=== PATIENT | male | born 1990 | race Two or more races ===

== ENCOUNTER 2019-05-28 15:50 | Emergency (ER) | payer MEDICAID ==
[~2019-05-28] VITALS: Ht 167.6 cm; Wt 74.8 kg
[2019-05-28 16:00] VITALS: BP 128/85
--- NOTE | 2019-05-28 16:00 | NUR ---
ED Nurse Note: Patient walked in to ER from home due to "feeling weird" since he took meth yesterday. Patient alert and oriented x4 and amulatory. Skin clean and intact. Calm and cooperative. No acute distress noted at this time.
--- NOTE | 2019-05-28 16:41 | Emergency Room Report ---
History of Present Illness General Chief Complaint: General Complaint Source: Patient Present Illness HPI 29-year-old male with significant past medical history of depression with psychotic features who formerly used to be on Lexapro and Risperdal and has not taken his medication in many months, here complaining of psychosis after using methamphetamine. Patient is here with his mom and reports that he has been using meth for several months now. According to mom patient started expressing delusional concerns saying that people are poisoning him and he is hearing voices. Patient himself denies any harm to himself and others and reports that the voices that he is hearing do not asked him to do harm to himself or anybody else. Patient sitting comfortably with stable vital signs however is under the impression that he is being poisoned and request blood work for clearance of being clear of poisoning. Denies all other drug use, tobacco use, alcohol intake. Denies chest pain, shortness of breath, palpitation, no other associated symptoms. Patient expresses voluntary interest to going to mental health facilities. Allergies: Coded Allergies: No Known Allergies (Unverified , 05/28/19) Patient History Past Medical History: see triage record Past Surgical History: unable to obtain Family History: none Immunizations: UTD Reviewed Nursing Documentation: PMH: Agreed; PSxH: Agreed Nursing Documentation-PMH Past Medical History: No History, Except For Review of Systems All Other Systems: negative except mentioned in HPI Physical Exam Vital Signs Date Time Temp Pulse Resp B/P (MAP) Pulse Ox O2 Delivery O2 Flow Rate FiO2 05/28/19 16:04 98.8 107 18 153/104 (120) 96 Room Air Sp02 EP Interpretation: reviewed, normal General Appearance: alert/responsive, no apparent distress, GCS 15, non-toxic Head: normocephalic, atraumatic Eyes: PERRL, lids + conjunctiva normal ENT: hearing intact, no angioedema Neck: supple/symm/no masses, no meningismus Respiratory: effort normal, no wheezing, chest symmetrical Cardiovascular: regular rate, rhythm, no edema Gastrointestinal: non-tender, no mass, non-distended, no rebound/guarding, normal bowel sounds Musculoskeletal: gait & station normal, strength & tone normal, normal ROM, non -tender Neurologic: oriented x3, sensory intact, normal speech Psychiatric: memory normal, no suicidal/homicidal ideation, other - Delusions and hallucinations Suicide Risk Assessment: Suicidal Ideation: No Had intent to initiate attempt: No Pt's plan for suicide attempt: No Has means to complete attempt: No Skin: normal inspection, no rash Lymphatic: normal inspection Medical Decision Making PA Attestation All my diagnosis and treatment plans were reviewed ad discussed with my supervising physician Dr. Scott Diagnostic Impression: Primary Impression: Drug-induced psychotic disorder Additional Impression: Methamphetamine abuse ER Course 29-year-old male with significant past medical history of depression with psychotic features who formerly used to be on Lexapro and Risperdal and has not taken his medication in many months, here complaining of psychosis after using methamphetamine. Patient is here with his mom and reports that he has been using meth for several months now. According to mom patient started expressing delusional concerns saying that people are poisoning him and he is hearing voices. Patient himself denies any harm to himself and others and reports that the voices that he is hearing do not asked him to do harm to himself or anybody else. Patient sitting comfortably with stable vital signs however is under the impression that he is being poisoned and request blood work for clearance of being clear of poisoning. Denies all other drug use, tobacco use, alcohol intake. Denies chest pain, shortness of breath, palpitation, no other associated symptoms. Patient expresses voluntary interest to going to mental health facilities. Ddx considered but are not limited to: generalized anxiety disorder, panic attack, depression with psycotic featurs, bipolar disorder, drug overdose Vital signs: are WNL, pt. is afebrile H&PE are most consistent with: Methamphetamine abuse, drug-induced psychosis ORDERS: none required at this time, the diagnosis is clinical ED INTERVENTIONS: None required at this time. DISCHARGE: At this time pt. is stable for d/c to home. Will provide printed patient care instructions, and any necessary prescriptions. Care plan and follow up instructions have been discussed with the patient prior to discharge. I gave patient a list of 3 days to go and check himself into also I explained to him that he needs to be cleared off methamphetamine in order to have a psychiatric evaluation and possibly go back on for her medications. Patient did not express any suicidal upon discharge Last Vital Signs Date Time Temp Pulse Resp B/P (MAP) Pulse Ox O2 Delivery O2 Flow Rate FiO2 10/19/19 16:04 98.8 107 18 153/104 (120) 96 Room Air Disposition: HOME, SELF-CARE Condition: Stable Patient Instructions: Psychosis, Stimulant Use Disorder-Methamphetamines Additional Instructions: Go to the mental health facility to help you detox from methamphetamine and be evaluated by psychiatrist. Jose Alfredo Malone May 28, 2019 16:41
[2019-05-28 16:52] VITALS: BP 148/98
--- NOTE | 2019-05-28 16:53 | NUR ---
ED Nurse Note: Pt cleared by health care Provider for discharge. DC instructions/prescription was given and explained to pt and verbalized understanding of teachings. All medical deviecs such as ID band removed. Pt is AAO x4, ambulatory and left with all personal belongings.
== END 2019-05-28 16:52 | disposition home or self-care (01) ==
LOC: EMR 16:40
DX: F15.151 Other stimulant abuse with stimulant-induced psychotic disorder with hallucinations (principal); F32.89 Other specified depressive episodes
CPT/HCPCS: 99281

== ENCOUNTER 2019-06-24 17:34 | Emergency (ER) | payer MEDICAID ==
[~2019-06-24] VITALS: Ht 167.6 cm; Wt 77.1 kg
--- NOTE | 2019-06-24 17:50 | Emergency Room Report ---
History of Present Illness General Chief Complaint: Abdominal Pain Source: Patient Present Illness HPI Disclaimer: Please note that this report is being documented using [employer] technology. This can lead to erroneous entry secondary to incorrect interpretation by the dictating instrument. HPI: 29-year-old male with history of schizophrenia and depression presents for evaluation of strange perioral sensations. The patient states for the past 2 days he has had a burning in the corners of his mouth and a "weird feeling" over the tip of his tongue that he has difficulty describing. He was brought in by paramedics who he called from a [employer] store parking lot. He is concerned that someone may have sprayed a chemical on him, poison him or is concerned about another exposure. He states he has had a dry mouth and difficulty swallowing over the past few days but does states that the difficulty swallowing is because he is fearful to do so. He denies any chest pain, palpitations, abdominal pain, nausea, vomiting, diarrhea, dysuria, hematuria, fever, chills. He started taking Seroquel and Lexapro on 06/17. Denies any involuntary fasciculations, changes in taste or sensation. Denies any recent exposure to animals, scratches, bites. Denies SI/HI. Denies any drug or alcohol use. PMH: Depression, schizophrenia PSH: None reported Allergies: Denies Social Hx: Denies drug or alcohol use Allergies: Coded Allergies: No Known Allergies (Unverified , 05/28/19) Nursing Documentation-PMH Past Medical History: No Stated History Review of Systems All Other Systems: negative except mentioned in HPI Physical Exam Vital Signs Date Time Temp Pulse Resp B/P (MAP) Pulse Ox O2 Delivery O2 Flow Rate FiO2 06/24/19 17:28 98.2 115 16 133/83 (100) 98 General: Awake and alert, appears anxious, no acute distress HEENT: NC/AT. EOMI. PERRLA. Pupils are 4 mm and reactive. Moist mucous membranes. Uvula midline. No pharyngeal erythema or exudates or edema. No tongue fasciculations. No obvious abrasions, lacerations or lesions in the oral cavity. No submandibular swelling. Neck: Supple, trachea midline, no lymphadenopathy Cardiovascular: Tachycardic. S1 and S2 normal. No murmur appreciated Resp: Normal work of breathing. No cough, wheezing or crackles appreciated Abdomen: Abdomen is soft, nondistended. Nontender Skin: Intact. No abrasions, laceration or rash over the exposed skin MSK: Normal tone and bulk. Moving all extremities. No obvious deformity. Neuro: Awake and alert. Mentating appropriately. Medical Decision Making Diagnostic Impression: Primary Impression: Facial paresthesia ER Course 29-year-old male presents for evaluation of strange perioral sensations and concerned that he may have been exposed to an unknown chemical. The patient denies any known exposures, exposure to animals, recent signs of illness but does state that he recently started taking Lexapro and Seroquel. Denies any other medical history. Differential includes was not limited to electrolyte abnormality, infection, dehydration, medication side effect, psychiatric issue. He is tachycardic but otherwise vital signs are within normal normal limits. He does look appear very anxious and endorses anxiety himself over his recent symptoms. We will give IV fluids, order screening labs and obtain an EKG. Can advance work-up as needed. Laboratory Tests Test 06/24/19 18:00 White Blood Count 8.0 K/UL (4.8-10.8) Red Blood Count 5.32 M/UL (4.70-6.10) Hemoglobin 15.6 G/DL (14.2-18.0) Hematocrit 44.6 % (42.0-52.0) Mean Corpuscular Volume 84 FL (80-99) Mean Corpuscular Hemoglobin 29.4 PG (27.0-31.0) Mean Corpuscular Hemoglobin Concent 35.1 G/DL (32.0-36.0) Red Cell Distribution Width 11.2 % (11.6-14.8) L Platelet Count 240 K/UL (150-450) Mean Platelet Volume 6.8 FL (6.5-10.1) Neutrophils (%) (Auto) 73.1 % (45.0-75.0) Lymphocytes (%) (Auto) 15.3 % (20.0-45.0) L Monocytes (%) (Auto) 8.6 % (1.0-10.0) Eosinophils (%) (Auto) 1.5 % (0.0-3.0) Basophils (%) (Auto) 1.6 % (0.0-2.0) Sodium Level 142 MMOL/L (136-145) Potassium Level 4.7 MMOL/L (3.5-5.1) Chloride Level 105 MMOL/L (98-107) Carbon Dioxide Level 31 MMOL/L (21-32) Anion Gap 6 mmol/L (5-15) Blood Urea Nitrogen 13 mg/dL (7-18) Creatinine 1.1 MG/DL (0.55-1.30) Estimate Glomerular Filtration Rate > 60 mL/min (>60) Glucose Level 109 MG/DL (74-106) H Calcium Level 9.1 MG/DL (8.5-10.1) Total Bilirubin 0.2 MG/DL (0.2-1.0) Aspartate Amino Transferase (AST) 51 U/L (15-37) H Alanine Aminotransferase (ALT) 92 U/L (12-78) H Alkaline Phosphatase 108 U/L (46-116) Total Protein 8.0 G/DL (6.4-8.2) Albumin 4.2 G/DL (3.4-5.0) Globulin 3.8 g/dL Albumin/Globulin Ratio 1.1 (1.0-2.7) Salicylates Level 1.0 ug/mL (2.8-20) L Urine Opiates Screen Negative (NEGATIVE) Acetaminophen Level < 2 MCG/ML (10-30) L Urine Barbiturates Screen Negative (NEGATIVE) Phencyclidine (PCP) Screen Negative (NEGATIVE) Urine Amphetamines Screen Negative (NEGATIVE) Urine Benzodiazepines Screen Negative (NEGATIVE) Urine Cocaine Screen Negative (NEGATIVE) Urine Marijuana (THC) Screen Positive (NEGATIVE) H Serum Alcohol < 3 mg/dL EKG Diagnostic Results EKG Time: 18:20 Rate: normal Rhythm: NSR ST Segments: no acute changes Other Impression Sinus rhythm, normal axis, normal intervals, no ST segment changes. Rhythm Strip Diag. Results Rhythm Strip Time: 18:20 EP Interpretation: yes Rate: 90s Rhythm: NSR, no PVC's, no ectopy Reevaluation Time: 19:07 Last Vital Signs Date Time Temp Pulse Resp B/P (MAP) Pulse Ox O2 Delivery O2 Flow Rate FiO2 06/24/19 17:28 98.2 115 16 133/83 (100) 98 Reevaluation Impression EKG shows now with normal ventricular rate without evidence of ischemia or QT prolongation. Patient remained stable. No acute distress and denies SI/HI. Patient's mother has now arrived. She states that her son was discharged from a psychiatric hospital earlier today after a 9-day stay for hallucinations. He has been paranoid and hallucinating about chemical exposures and being sprayed in the face for some time now. He was started has been compliant with his Seroquel and Lexapro. States that some of his hallucinations have persisted despite medications. She denies him expressing any suicidality or homicidality or violent behavior towards her. She is requesting that he see a psychiatrist unfortunately do not have one in the hospital at this time. Provide outpatient resources. She feels safe taking the patient home and will return to the emergency department if there are any changes in his mental or physical health. I provided the patient a copy of his labs at his request. He will be discharged to follow-up as an outpatient. Disposition: HOME, SELF-CARE Condition: Stable Jaspal Hawk MD Jun 24, 2019 17:50
[2019-06-24 18:15] VITALS: BP 133/83
--- NOTE | 2019-06-24 18:18 | NUR ---
ED Nurse Note:pt. came from home with anxiety and beleive that he was poisoned , pt. is A/Ox4 ambulatory with steady gait, VSS, blood and urine sent to labs, EKG done
[2019-06-24 18:34] LABS: BASOPHILS % (AUTO) 1.6 % (0.0-2.0); EOSINOPHILS % (AUTO) 1.5 % (0.0-3.0); HEMATOCRIT 44.6 % (42.0-52.0); HEMOGLOBIN 15.6 G/DL (14.2-18.0); LYMPHOCYTES % (AUTO) 15.3 % (20.0-45.0); MEAN CORPUSCULAR VOLUME 84 FL (80-99); MONOCYTES % (AUTO) 8.6 % (1.0-10.0); NEUTROPHILS % (AUTO) 73.1 % (45.0-75.0); PLATELET COUNT 240 K/UL (150-450); RED BLOOD COUNT 5.32 M/UL (4.70-6.10); RED CELL DISTRIBUTION WIDTH 11.2 % (11.6-14.8)
[2019-06-24 18:55] LABS: ANION GAP 6 mmol/L (5-15); BLOOD UREA NITROGEN 13 mg/dL (7-18); CALCIUM 9.1 MG/DL (8.5-10.1); CARBON DIOXIDE 31 MMOL/L (21-32); CHLORIDE 105 MMOL/L (98-107); CREATININE 1.1 MG/DL (0.55-1.30); POTASSIUM 4.7 MMOL/L (3.5-5.1); SODIUM 142 MMOL/L (136-145)
[2019-06-24 18:59] LABS: ALANINE AMINOTRANSFERASE 92 U/L (12-78); ALBUMIN 4.2 G/DL (3.4-5.0); ALBUMIN/GLOBULIN RATIO 1.1 (1.0-2.7); ALKALINE PHOSPHATASE 108 U/L (46-116); ASPARTATE AMINO TRANSFERASE 51 U/L (15-37); BILIRUBIN,TOTAL 0.2 MG/DL (0.2-1.0)
[2019-06-24 19:18] VITALS: BP 133/83
--- NOTE | 2019-06-24 19:19 | NUR ---
ER DISCHARGE NOTE: Patient is cleared to be discharged per ERMD, pt is aox4, on room air, with stable vital signs. pt was given dc and prescription instructions, pt was able to verbalize understanding, pt id band and iv site removed without complications. pt is able to ambulate with steady gait. pt took all belongings.
== END 2019-06-24 19:10 | disposition home or self-care (01) ==
LOC: EDBD 17:34 → EMR 17:49
DX: R20.2 Paresthesia of skin (principal); F32.9 Major depressive disorder, single episode, unspecified; F20.9 Schizophrenia, unspecified
CPT/HCPCS: 36415; 80053; 80307; 85025; 93005; 96360; G0480; G0481; Z7502; 99284

== ENCOUNTER 2019-06-24 21:10 | Emergency (ER) | payer MEDICAID ==
[~2019-06-24] VITALS: Ht 167.6 cm; Wt 78.0 kg
[2019-06-24 21:24] VITALS: BP 144/92
--- NOTE | 2019-06-24 21:24 | NUR ---
ED Nurse Note: Patient walke din to ER due to diarrhea and sattes that he has foaming at his mouth. Has history of behavioral problem. Pt was seen her 2 hrs ago due to same symptoms. Afebrile. No SOB. Breathing even and unlabored. VSS.
--- NOTE | 2019-06-24 23:02 | NUR ---
ED Nurse Note: IV line established. Blood collected and sent to lab.
[2019-06-24 23:14] VITALS: BP 131/77
[2019-06-24 23:18] LABS: BASOPHILS % (AUTO) 0.7 % (0.0-2.0); EOSINOPHILS % (AUTO) 1.4 % (0.0-3.0); HEMATOCRIT 41.7 % (42.0-52.0); HEMOGLOBIN 14.7 G/DL (14.2-18.0); LYMPHOCYTES % (AUTO) 20.1 % (20.0-45.0); MEAN CORPUSCULAR VOLUME 83 FL (80-99); MONOCYTES % (AUTO) 7.9 % (1.0-10.0); NEUTROPHILS % (AUTO) 69.9 % (45.0-75.0); PLATELET COUNT 202 K/UL (150-450); RED BLOOD COUNT 5.01 M/UL (4.70-6.10); RED CELL DISTRIBUTION WIDTH 11.1 % (11.6-14.8); WHITE BLOOD COUNT 7.9 K/UL (4.8-10.8)
[2019-06-24 23:28] LABS: ANION GAP 9 mmol/L (5-15); BLOOD UREA NITROGEN 11 mg/dL (7-18); CALCIUM 8.6 MG/DL (8.5-10.1); CARBON DIOXIDE 28 MMOL/L (21-32); CHLORIDE 105 MMOL/L (98-107); CREATININE 0.8 MG/DL (0.55-1.30); POTASSIUM 4.1 MMOL/L (3.5-5.1); SODIUM 142 MMOL/L (136-145)
[2019-06-24 23:41] LABS: ALANINE AMINOTRANSFERASE 91 U/L (12-78); ALBUMIN 3.9 G/DL (3.4-5.0); ALBUMIN/GLOBULIN RATIO 1.1 (1.0-2.7); ALKALINE PHOSPHATASE 96 U/L (46-116); ASPARTATE AMINO TRANSFERASE 44 U/L (15-37); BILIRUBIN,TOTAL 0.2 MG/DL (0.2-1.0)
[2019-06-24] MEDS ORDERED: Dicyclomine HCl 10mg/5ml oral soln ORAL ONE (23:45)
[2019-06-25] VITALS (10 sets, daily range): BP systolic 110–131; BP diastolic 71–86
--- NOTE | 2019-06-25 00:14 | NUR ---
ED Nurse Note: ([phone]: Marie (mother).
[2019-06-25 00:20] LABS: APPEARANCE,URINE CLEAR; BILIRUBIN, URINE NEGATIVE (NEGATIVE); COLOR,URINE PALE YELLOW; GLUCOSE, URINE (UA) NEGATIVE (NEGATIVE); KETONES,URINE NEGATIVE (NEGATIVE); LEUKOCYTE ESTERASE ,URINE NEGATIVE (NEGATIVE); NITRITE,URINE NEGATIVE (NEGATIVE); PH,URINE 7 (4.5-8.0); PROTEIN,URINE NEGATIVE (NEGATIVE); UROBILINOGEN,URINE NORMAL MG/DL (0.0-1.0)
--- NOTE | 2019-06-25 01:06 | Emergency Room Report ---
History of Present Illness General Chief Complaint: Diarrhea Source: Patient (Juni May MD) Present Illness HPI Patient is a 29-year-old male brought in from home from family member. Patient reports having increased abdominal discomfort as well as some abdominal cramping. He reports having some increased anxiety. He had recently been released from the psychiatric facility on 5250 hold. He had recently been started on new psychiatric medications. He reports having increased anxiety.Patient denies any suicidal thoughts. (Juni May MD) Allergies: Coded Allergies: No Known Allergies (Unverified , 06/24/19) Patient History Past Medical History: see triage record Reviewed Nursing Documentation: PMH: Agreed; PSxH: Agreed (Juni May MD) Nursing Documentation-PMH History Of Psychiatric Problem: Yes (Juni May MD) Review of Systems All Other Systems: negative except mentioned in HPI (Juni May MD) Physical Exam Vital Signs Date Time Temp Pulse Resp B/P (MAP) Pulse Ox O2 Delivery O2 Flow Rate FiO2 06/24/19 21:16 98.4 116 16 144/92 (109) 97 Room Air Sp02 EP Interpretation: reviewed, normal General Appearance: normal inspection, well appearing, no apparent distress, alert, GCS 15, non-toxic Head: atraumatic ENT: normal ENT inspection, hearing grossly normal, normal voice Neck: normal inspection, full range of motion, supple, no bony tend Respiratory: normal inspection, lungs clear, normal breath sounds, no respiratory distress, no retraction, no wheezing Cardiovascular #1: regular rate, rhythm, no edema Gastrointestinal: normal inspection, normal bowel sounds, non tender, soft, no guarding, no hernia Genitourinary: no CVA tenderness Musculoskeletal: normal inspection, back normal, normal range of motion Neurologic: normal inspection, alert, oriented x3, responsive, speech normal Psychiatric: normal inspection, judgement/insight normal, mood/affect normal (Juni May MD) Medical Decision Making Diagnostic Impression: Primary Impression: Diarrhea Additional Impressions: Psychosis Marijuana abuse ER Course Patient presented for increased anxiety. Differential diagnosis include was not limited to psychosis, substance abuse, alcohol withdrawal among others. Because of complexity of patient's case laboratory tests and imaging studies were ordered. Patient's laboratory testing was unremarkable. Patient's urine drug screen was noted to be positive for marijuana. Patient was given IV fluids initially. Patient states that he is feeling that he would may want to harm others. Patient had recently been released from a psychiatric facility. Does not appear to be in any acute distress and did not have any diarrhea while in the emergency department. EKG showed no evidence of acute cardiac abnormalities. Patient is medically cleared for psychiatric placement. Patient was endorsed to Dr. Jean pending psychiatric evaluation and placement. Labs Test 06/24/19 23:03 06/25/19 00:02 White Blood Count 7.9 K/UL (4.8-10.8) Red Blood Count 5.01 M/UL (4.70-6.10) Hemoglobin 14.7 G/DL (14.2-18.0) Hematocrit 41.7 % (42.0-52.0) Mean Corpuscular Volume 83 FL (80-99) Mean Corpuscular Hemoglobin 29.3 PG (27.0-31.0) Mean Corpuscular Hemoglobin Concent 35.3 G/DL (32.0-36.0) Red Cell Distribution Width 11.1 % (11.6-14.8) Platelet Count 202 K/UL (150-450) Mean Platelet Volume 6.8 FL (6.5-10.1) Neutrophils (%) (Auto) 69.9 % (45.0-75.0) Lymphocytes (%) (Auto) 20.1 % (20.0-45.0) Monocytes (%) (Auto) 7.9 % (1.0-10.0) Eosinophils (%) (Auto) 1.4 % (0.0-3.0) Basophils (%) (Auto) 0.7 % (0.0-2.0) Sodium Level 142 MMOL/L (136-145) Potassium Level 4.1 MMOL/L (3.5-5.1) Chloride Level 105 MMOL/L (98-107) Carbon Dioxide Level 28 MMOL/L (21-32) Anion Gap 9 mmol/L (5-15) Blood Urea Nitrogen 11 mg/dL (7-18) Creatinine 0.8 MG/DL (0.55-1.30) Estimat Glomerular Filtration Rate > 60 mL/min (>60) Glucose Level 118 MG/DL (74-106) Calcium Level 8.6 MG/DL (8.5-10.1) Total Bilirubin 0.2 MG/DL (0.2-1.0) Aspartate Amino Transf (AST/SGOT) 44 U/L (15-37) Alanine Aminotransferase (ALT/SGPT) 91 U/L (12-78) Alkaline Phosphatase 96 U/L (46-116) Total Protein 7.5 G/DL (6.4-8.2) Albumin 3.9 G/DL (3.4-5.0) Globulin 3.6 g/dL Albumin/Globulin Ratio 1.1 (1.0-2.7) Thyroid Stimulating Hormone (TSH) 0.927 uiU/mL (0.358-3.740) Salicylates Level 0.9 ug/mL (2.8-20) Acetaminophen Level < 2 MCG/ML (10-30) Serum Alcohol < 3 mg/dL Urine Color Pale yellow Urine Appearance Clear Urine pH 7 (4.5-8.0) Urine Specific [place] 1.010 (1.005-1.035) Urine Protein Negative (NEGATIVE) Urine Glucose (UA) Negative (NEGATIVE) Urine Ketones Negative (NEGATIVE) Urine Blood Negative (NEGATIVE) Urine Nitrite Negative (NEGATIVE) Urine Bilirubin Negative (NEGATIVE) Urine Urobilinogen Normal MG/DL (0.0-1.0) Urine Leukocyte Esterase Negative (NEGATIVE) Urine Opiates Screen Negative (NEGATIVE) Urine Barbiturates Screen Negative (NEGATIVE) Phencyclidine (PCP) Screen Negative (NEGATIVE) Urine Amphetamines Screen Negative (NEGATIVE) Urine Benzodiazepines Screen Negative (NEGATIVE) Urine Cocaine Screen Negative (NEGATIVE) Urine Marijuana (THC) Screen Positive (NEGATIVE) (Juni May MD) ER Course Please note that on my shift I was asked for Lexapro and antianxiety medication patient reports taking Lexapro daily (Vidal Jean DO) Last Vital Signs Date Time Temp Pulse Resp B/P (MAP) Pulse Ox O2 Delivery O2 Flow Rate FiO2 06/24/19 23:14 98.4 98 19 131/77 100 Room Air Status: improved (Juni May MD) Reevaluation Time: 14:40 Reevaluation Impression Assumed care of the patient from Dr. Jean at approximately 1400. Briefly, this is a 29-year-old male with a history of psychiatric disorder reportedly on Lexapro daily who originally complained of abdominal pain and diarrhea however than stated that he has thoughts of harming self and others. He was recently discharged from a psychiatric facility. He has been given Lexapro and Ativan while in the emergency department. He is going for voluntary placement to a psychiatric facility which we will attempt to arrange. He is medically cleared for transfer to psychiatric facility. (Jaspal Hawk MD) Disposition: XFER SHT-TRM HOSP Condition: Stable Referrals: NON PHYSICIAN (PCP) Patient Instructions: Diarrhea, Adult Additional Instructions: Follow up with your doctor for recheck. Return if worse. Juni May MD Jun 25, 2019 01:06 Vidal Jean DO Jun 25, 2019 12:54 Jaspal Hawk MD Jun 25, 2019 14:41
--- NOTE | 2019-06-25 01:35 | NUR ---
ED Nurse Note: Patient is about to be D/C but stated that he wanted to kill people.
--- NOTE | 2019-06-25 03:15 | NUR ---
Face sheet,EKG and dictation faxed to [facility] @ [phone]
--- NOTE | 2019-06-25 03:45 | NUR ---
ED Nurse Note: Pt seen sleeping quietly in bed. No SOB. No SI/HI at this time. VSS.
--- NOTE | 2019-06-25 04:50 | NUR ---
Call placed to [facility]- left message to call us.
--- NOTE | 2019-06-25 06:06 | NUR ---
ED Nurse Note: Pt awake, alert and oriented. No SOB. Breathing even and unlabored. No SI/HI. VSS.
--- NOTE | 2019-06-25 07:05 | NUR ---
ED Nurse Note: Received handoff report From Sinan MARIEE. Patient resting in bed, calm. VSS. Bed in lowest position.
--- NOTE | 2019-06-25 07:08 | NUR ---
HAND-OFF: Report given to Carlos A MARIEE/ Lee MARIEE. Endorsed plan of care. No new order at this time.
--- NOTE | 2019-06-25 10:30 | NUR ---
ED Nurse Note: Patient resting in bed. Calm, cooperative, no signs of distress.
--- NOTE | 2019-06-25 12:45 | NUR ---
ED Nurse Note: Patient resting in bed. Patient stated he is feeling anxious. Patient calm and cooperative. ERMD notified
--- NOTE | 2019-06-25 12:46 | NUR ---
patient states he is not suicidal but having hallucinations wants to be placed in as voluantary psych admission, clinicals faxed y=to tarik rodgers
--- NOTE | 2019-06-25 12:56 | NUR ---
called ob psych no bed avilable now call back at [phone]
[2019-06-25] MEDS ORDERED: LORazepam 1mg tab ORAL ONE (13:00)
--- NOTE | 2019-06-25 14:10 | NUR ---
ED Nurse Note: Patient resting in bed, calm, cooperative, no signs of distress.
--- NOTE | 2019-06-25 16:50 | NUR ---
ED Nurse Note: Called [facility] and gave repot to Flaco MARIEE.
== END 2019-06-25 17:15 | disposition short-term general hospital (02) ==
LOC: EMR 21:43
DX: R19.7 Diarrhea, unspecified (principal); F41.9 Anxiety disorder, unspecified; F12.10 Cannabis abuse, uncomplicated; F29 Unspecified psychosis not due to a substance or known physiological condition
CPT/HCPCS: 36415; 80053; 80307; 81003; 84443; 85025; 93005; 96360; G0480; G0481; Z7502; 99285; J7030

== ENCOUNTER 2019-07-05 22:31 | Emergency (ER) | payer MEDICAID ==
[~2019-07-05] VITALS: Ht 167.6 cm; Wt 83.9 kg
[2019-07-05 22:36] VITALS: BP 128/78
[2019-07-05 23:23] LABS: BASOPHILS % (AUTO) 0.7 % (0.0-2.0); EOSINOPHILS % (AUTO) 0.6 % (0.0-3.0); HEMOGLOBIN 15.8 G/DL (14.2-18.0); LYMPHOCYTES % (AUTO) 14.9 % (20.0-45.0); MEAN CORPUSCULAR VOLUME 84 FL (80-99); MONOCYTES % (AUTO) 10.2 % (1.0-10.0); NEUTROPHILS % (AUTO) 73.8 % (45.0-75.0); PLATELET COUNT 310 K/UL (150-450); RED BLOOD COUNT 5.37 M/UL (4.70-6.10); RED CELL DISTRIBUTION WIDTH 12.7 % (11.6-14.8); WHITE BLOOD COUNT 12.7 K/UL (4.8-10.8)
[2019-07-05 23:35] LABS: ANION GAP 14 mmol/L (5-15); BLOOD UREA NITROGEN 19 mg/dL (7-18); CALCIUM 9.7 MG/DL (8.5-10.1); CARBON DIOXIDE 25 MMOL/L (21-32); CHLORIDE 101 MMOL/L (98-107); CREATININE 0.9 MG/DL (0.55-1.30); POTASSIUM 3.7 MMOL/L (3.5-5.1); SODIUM 140 MMOL/L (136-145)
[2019-07-05 23:46] LABS: ALANINE AMINOTRANSFERASE 98 U/L (12-78); ALBUMIN 4.7 G/DL (3.4-5.0); ALBUMIN/GLOBULIN RATIO 1.1 (1.0-2.7); ALKALINE PHOSPHATASE 106 U/L (46-116); ASPARTATE AMINO TRANSFERASE 92 U/L (15-37); BILIRUBIN,TOTAL 0.9 MG/DL (0.2-1.0)
[2019-07-06] MEDS ORDERED: Lidocaine 2% Visc 15ml soln ORAL ONE (01:15)
[2019-07-06] MEDS ORDERED: Mylanta II UD 30ml ORAL ONE (01:15)
[2019-07-06] MEDS ORDERED: Dicyclomine HCl 10mg/5ml oral soln ORAL ONE (01:15)
--- NOTE | 2019-07-06 01:25 | Emergency Room Report ---
History of Present Illness General Chief Complaint: General Complaint Source: Patient Present Illness HPI 29-year-old male presents ED for evaluation. Patient states that he is smelling fumes in his house which are making him sick. He does not know where the fumes are coming from. 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 States he feels nauseous. Denies vomiting. Denies shortness of breath. States he feels tingling sensation to his extremities. Does admit to a psychiatric history. Is he was released yesterday from [facility]. Was prescribed medications which he states he is taking. Denies SI. Admits to wanting to hurt others. States that his mother kicked him out of the house because she does not feel safe. No other aggravating relieving factors. Denies any other associated symptoms Allergies: Coded Allergies: No Known Allergies (Unverified , 06/24/19) Patient History Past Medical History: psych hx Past Surgical History: none Pertinent Family History: none Social History: Reports: drug use; Denies: smoking, alcohol use Immunizations: UTD Reviewed Nursing Documentation: PMH: Agreed; PSxH: Agreed Review of Systems All Other Systems: negative except mentioned in HPI Physical Exam Vital Signs Date Time Temp Pulse Resp B/P (MAP) Pulse Ox O2 Delivery O2 Flow Rate FiO2 07/05/19 22:36 110 16 Room Air 07/05/19 22:36 99.1 128/78 97 Sp02 EP Interpretation: reviewed, normal General Appearance: no apparent distress, alert, GCS 15, non-toxic Head: normocephalic, atraumatic Eyes: bilateral eye normal inspection, bilateral eye PERRL ENT: hearing grossly normal, normal pharynx, no angioedema, normal voice Neck: full range of motion, supple/symm/no masses Respiratory: chest non-tender, lungs clear, normal breath sounds, speaking full sentences Cardiovascular #1: regular rate, rhythm, no edema Cardiovascular #2: 2+ carotid (R), 2+ carotid (L), 2+ radial (R), 2+ radial (L) , 2+ dorsalis pedis (R), 2+ dorsalis pedis (L) Gastrointestinal: normal bowel sounds, non tender, soft, non-distended, no guarding, no rebound Rectal: deferred Genitourinary: normal inspection, no CVA tenderness Musculoskeletal: back normal, normal range of motion, gait/station normal, non- tender Neurologic: alert, motor strength/tone normal, oriented x3, sensory intact, responsive, speech normal Psychiatric: memory normal, depressed affect, anxious Reflexes: 3+ bicep (R), 3+ bicep (L), 3+ tricep (R), 3+ tricep (L), 3+ knee (R) , 3+ knee (L) Skin: no rash Lymphatic: no adenopathy Medical Decision Making Diagnostic Impression: Primary Impression: Behavioral disorder Additional Impression: Substance abuse ER Course Hospital Course 29 yo M presents with nausea, SOB after smelling fumes in his house Differential diagnoses include: Major depressive disorder, unspecified psychosis , CO poisoning, drug abuse Clinical course Patient placed on stretcher. After initial history and physical I ordered labs, U. tox, carboxyhemoglobin level, CXR Labs-electrolytes normal, aspirin/Tylenol levels normal, EtOH level normal, U. tox +BZs + amphetamines. Carboxyhemoglobin levels normal CXR - dextrocardia, no acute process I discussed these findings with the patient. Reassurance given. Patient insists that someone is poisoning his building. Patient does show significant paranoia. Was released yesterday from [facility] with paperwork. Was prescribed Haldol, Seroquel; is not clear that patient has been compliant with his medications Patient is medically cleared and pending psychiatric evaluation. i. I feel this is a highly complex case requiring extensive working including EKG/Rhythm strip, Xray/CT/US, Blood/urine lab work, repeat exams while in ED, and administration of strong opiates/narcotics for pain control, admission to hospital or close patient follow up. Labs Test 07/05/19 22:57 07/05/19 23:00 07/05/19 23:05 Urine Opiates Screen Negative (NEGATIVE) Urine Barbiturates Screen Negative (NEGATIVE) Phencyclidine (PCP) Screen Negative (NEGATIVE) Urine Amphetamines Screen Positive (NEGATIVE) Urine Benzodiazepines Screen Negative (NEGATIVE) Urine Cocaine Screen Negative (NEGATIVE) Urine Marijuana (THC) Screen Positive (NEGATIVE) White Blood Count 12.7 K/UL (4.8-10.8) Red Blood Count 5.37 M/UL (4.70-6.10) Hemoglobin 15.8 G/DL (14.2-18.0) Hematocrit 45.0 % (42.0-52.0) Mean Corpuscular Volume 84 FL (80-99) Mean Corpuscular Hemoglobin 29.5 PG (27.0-31.0) Mean Corpuscular Hemoglobin Concent 35.2 G/DL (32.0-36.0) Red Cell Distribution Width 12.7 % (11.6-14.8) Platelet Count 310 K/UL (150-450) Mean Platelet Volume 6.8 FL (6.5-10.1) Neutrophils (%) (Auto) 73.8 % (45.0-75.0) Lymphocytes (%) (Auto) 14.9 % (20.0-45.0) Monocytes (%) (Auto) 10.2 % (1.0-10.0) Eosinophils (%) (Auto) 0.6 % (0.0-3.0) Basophils (%) (Auto) 0.7 % (0.0-2.0) Sodium Level 140 MMOL/L (136-145) Potassium Level 3.7 MMOL/L (3.5-5.1) Chloride Level 101 MMOL/L (98-107) Carbon Dioxide Level 25 MMOL/L (21-32) Anion Gap 14 mmol/L (5-15) Blood Urea Nitrogen 19 mg/dL (7-18) Creatinine 0.9 MG/DL (0.55-1.30) Estimat Glomerular Filtration Rate > 60 mL/min (>60) Glucose Level 119 MG/DL (74-106) Calcium Level 9.7 MG/DL (8.5-10.1) Total Bilirubin 0.9 MG/DL (0.2-1.0) Aspartate Amino Transf (AST/SGOT) 92 U/L (15-37) Alanine Aminotransferase (ALT/SGPT) 98 U/L (12-78) Alkaline Phosphatase 106 U/L (46-116) Total Protein 9.0 G/DL (6.4-8.2) Albumin 4.7 G/DL (3.4-5.0) Globulin 4.3 g/dL Albumin/Globulin Ratio 1.1 (1.0-2.7) Salicylates Level 0.2 ug/mL (2.8-20) Acetaminophen Level < 2 MCG/ML (10-30) Serum Alcohol < 3 mg/dL Chest X-Ray Diagnostic Results Chest X-Ray Diagnostic Results : Chest X-Ray Ordered: Yes # of Views/Limited/Complete: 1 View Indication: Shortness of Breath EP Interpretation: Yes Interpretation: no consolidation, no effusion, no pneumothorax, no acute cardiopulmonary disease, other - dextrocardia Impression: No acute disease Electronically Signed by: Electronically signed by Panda Scott MD Last Vital Signs Date Time Temp Pulse Resp B/P (MAP) Pulse Ox O2 Delivery O2 Flow Rate FiO2 07/05/19 22:36 99.1 110 16 128/78 (95) 97 Room Air Status: improved Disposition: XFER TO PSYCH HOSP/UNIT Condition: Critical Referrals: AIDAN HERNANDEZ,REFERRING (PCP) Panda Scott MD Jul 06, 2019 01:25
[2019-07-06] MEDS ORDERED: LORazepam Inj 2mg/ml 1ml IV ONE ×2 (01:45→04:00)
[2019-07-06 03:52] VITALS: BP 118/75
[2019-07-06 08:16] VITALS: BP 118/76
[2019-07-06] MEDS ORDERED: BENADRYL25 M3 PO (12:01)
--- NOTE | 2019-07-06 12:03 | Emergency Room Report ---
Physical Exam Vital Signs Date Time Temp Pulse Resp B/P (MAP) Pulse Ox O2 Delivery O2 Flow Rate FiO2 07/05/19 22:36 110 16 Room Air 07/05/19 22:36 99.1 128/78 97 Medical Decision Making Diagnostic Impression: Primary Impression: Behavioral disorder Additional Impression: Substance abuse ER Course Assumed care of the patient approximately [address] Scott. Briefly, this is a 29-year-old male with history of paranoia and other psych disorders including recurrent emergency department trips for concern over toxic gas closure and facial paresthesias who did a return to the emergency department with similar complaints but then expressed thoughts of possibly harming his mother. He was to be taken voluntary to a psychiatric facility. Of note he was released from a psychiatric facility yesterday. He has been in the emergency department for some time. Labs are unremarkable including carboxyhemoglobin. He no longer expresses any intent to harm self or others. He is calm and collected. He is requesting to return home. He states he has medications from his recent discharge. Do not believe he is a danger to self or others. We will follow-up with the psychiatry team and PMD. Return precautions were discussed. He understands and agrees with this treatment plan. Last Vital Signs Date Time Temp Pulse Resp B/P (MAP) Pulse Ox O2 Delivery O2 Flow Rate FiO2 07/06/19 08:16 98.2 96 16 118/76 96 Room Air Disposition: HOME, SELF-CARE Condition: Stable Scripts Diphenhydramine HCl (Benadryl) 25 Mg Capsule 25 MG PO BEDTIME, #10 CAP Prov: Jaspal Hawk MD 07/06/19 Referrals: AIDAN HERNANDEZ,REFERRING (PCP) Patient Instructions: Panic Attacks Additional Instructions: Please continue your medications as prescribed. We will give several up tablets of Benadryl to help you sleep at night. If you are having thoughts of harming yourself or others, thoughts of paranoia, any sudden changes in your health return to the emergency department for reevaluation Jaspal Hawk MD Jul 06, 2019 12:02
--- NOTE | 2019-07-06 12:10 | Diagnostic Imaging Report ---
Indication: Shortness of breath Technique: One view of the chest Comparison: none Findings: There appears to be dextrocardia, with sided aortic arch and normal abdominal situs. Lungs pleural spaces are clear. The heart size is normal. There is an old healed fracture deformity of the right clavicle Impression: No acute process Dextrocardia with otherwise normal situs
[2019-07-06 12:40] VITALS: BP 118/76
== END 2019-07-06 12:40 | disposition home or self-care (01) ==
LOC: EMR 22:51
DX: F91.9 Conduct disorder, unspecified (principal); F15.10 Other stimulant abuse, uncomplicated; F12.10 Cannabis abuse, uncomplicated
CPT/HCPCS: 36415; 71045; 80053; 80307; 85025; 96361; 96374; 96375; 96376; G0480; G0481; J7030; S0028; Z7502; 99284

== ENCOUNTER 2019-07-06 13:16 | Emergency (ER) | payer MEDICAID ==
[~2019-07-06] VITALS: Ht 167.6 cm; Wt 81.6 kg
[~2019-07-06 13:16] MED LIST: BENADRYL25 M3 PO
[2019-07-06 13:45] VITALS: BP 133/80
--- NOTE | 2019-07-06 14:00 | Emergency Room Report ---
History of Present Illness General Chief Complaint: General Complaint Source: Patient Present Illness HPI 29 year old male pmhx depression, states people are poisoning his house, he denies any aggravating or alleviating factors, no SI or HI at this time. Patient returns stating he wants transportation. Patient reports hand paraesthesias, no known aggravating or alleviating factors , severity is mild. Allergies: Coded Allergies: No Known Allergies (Unverified , 07/06/19) Patient History Past Medical History: see triage record Reviewed Nursing Documentation: PMH: Agreed; PSxH: Agreed Nursing Documentation-PMH Past Medical History: No History, Except For Review of Systems All Other Systems: negative except mentioned in HPI Physical Exam Vital Signs Date Time Temp Pulse Resp B/P (MAP) Pulse Ox O2 Delivery O2 Flow Rate FiO2 07/06/19 13:38 98.4 99 16 133/80 (97) 97 Room Air General Appearance: well appearing, no apparent distress Head: normocephalic, atraumatic ENT: hearing grossly normal, normal voice Neck: full range of motion, supple Respiratory: no respiratory distress, speaking full sentences Neurologic: alert, normal gait Psychiatric: mood/affect normal, no suicidal/homicidal ideation Skin: no rash Medical Decision Making Diagnostic Impression: Primary Impression: Behavioral disorder ER Course This patient is a chronic risk of self injury due to poor impulse control, limited coping skills, and judgment intermittently impaired by intoxication. I believe that the available clinical evidence to suggest that these characteristics derived primarily from personality disorder and are likely very stable over time. Hospitalization would likely attenuate risk of self-harm only during snf period, without lasting risk reduction. Serious self-harm , while possible, would likely be inadvertent, and because of impulsivity, and foreseeable. For these reasons, I do not believe hospitalization would provide meaningful reduction in risk of self-harm. Patient was medically cleared, and psychiatrically cleared Patient is requesting a place to stay Patient counseled to follow-up with psychiatry and we do not provide transportation. Last Vital Signs Date Time Temp Pulse Resp B/P (MAP) Pulse Ox O2 Delivery O2 Flow Rate FiO2 07/06/19 13:45 99 16 Room Air 07/06/19 13:45 98.4 133/80 97 Disposition: HOME, SELF-CARE Condition: Stable Referrals: [facility] Patient Instructions: Depression, Adult, [id number], Self-Destructive Behavior Additional Instructions: The patient was provided with discharge instructions, notified to follow-up with a primary care doctor and or specialist in the next 24-48 hours, and to return to the ED if they have worsening of their symptoms. Please note that this report is being documented using DRAGON technology. This can lead to erroneous entry secondary to incorrect interpretation by the dictating instrument. Tomas Corcoran MD Jul 06, 2019 14:00
[2019-07-06 14:59] VITALS: BP 133/80
== END 2019-07-06 14:55 | disposition home or self-care (01) ==
LOC: EMR 14:03
DX: F91.9 Conduct disorder, unspecified (principal); F15.10 Other stimulant abuse, uncomplicated; F12.10 Cannabis abuse, uncomplicated
CPT/HCPCS: 99281

== ENCOUNTER 2019-07-28 22:43 | Emergency (ER) | payer MEDICAID ==
[~2019-07-28] VITALS: Ht 167.6 cm; Wt 83.9 kg
--- NOTE | 2019-07-28 23:05 | Emergency Room Report ---
History of Present Illness General Chief Complaint: Behavioral Complaint Source: Patient, Family Member, Medical Record Present Illness HPI This is a 29-year-old male with a psychiatric history. He has multiple psychiatric admission. He has history of bipolar with psychotic feature. He was last admitted to [facility] in [place] 2 weeks ago. He is supposed to be on Seroquel and Lexapro. He is not taking it. He also has a history of drug abuse with marijuana and methamphetamine. He presents with chief complaint of paranoia. Mom brought him here. She said that he is not acting right. He is very paranoid. [place] like people going after him. Said that people are following him. He also has thoughts of hurting other people because are after him. He does not feel safe. Mom does not feel safe. He denies suicidal thoughts. Allergies: Coded Allergies: No Known Allergies (Unverified , 07/28/19) Patient History Past Medical History: see triage record, old chart reviewed, psych hx Past Surgical History: none Family History: none Social History: tobacco use, drug use Immunizations: other Reviewed Nursing Documentation: PMH: Agreed; PSxH: Agreed Nursing Documentation-PMH History Of Psychiatric Problem: Yes - major depression and anxiety Review of Systems ENT: Denies: sore throat Cardiovascular: Denies: chest pain, palpitations Gastrointestinal/Abdominal: Denies: nausea, vomiting, diarrhea Musculoskeletal: Denies: back problems Skin: Denies: rash Psychiatric: Reports: prior history, hallucinations, suicidal/homicidal ideations Neurological: Denies: SOLIS, seizures All Other Systems: negative except mentioned in HPI Physical Exam Vital Signs Date Time Temp Pulse Resp B/P (MAP) Pulse Ox O2 Delivery O2 Flow Rate FiO2 07/28/19 22:46 98.2 102 18 121/77 (92) 99 Room Air Vitals normal Sp02 EP Interpretation: reviewed, normal General Appearance: alert/responsive, no apparent distress, non-toxic Head: normocephalic, atraumatic Eyes: PERRL, EOMI ENT: oropharynx normal Neck: supple/symm/no masses Respiratory: effort normal, no rhonchi, no wheezing Cardiovascular: no murmur, gallop, rub Gastrointestinal: non-tender, no mass, non-distended, no rebound/guarding, normal bowel sounds Musculoskeletal: gait & station normal Neurologic: oriented x3, sensory intact, motor strength/tone normal Psychiatric: other - Flat affect. Paranoia Skin: no rash, normal palpation Medical Decision Making Diagnostic Impression: Primary Impression: Methamphetamine abuse Additional Impressions: Psychosis Qualified Codes: F23 - Brief psychotic disorder At risk for danger to others ER Course Presents with acute psychosis. May be paranoid schizophrenia worsened by drugs. He felt like he is a danger to other. Mom felt that he is a danger to himself and other. He is to go voluntarily to a psychiatric facility. He is medically cleared. Last Vital Signs Date Time Temp Pulse Resp B/P (MAP) Pulse Ox O2 Delivery O2 Flow Rate FiO2 07/28/19 22:46 98.2 102 18 121/77 (92) 99 Room Air Status: improved Disposition: XFER TO PSYCH HOSP/UNIT Condition: Stable Scripts No Active Prescriptions or Reported Meds Baldemar Butt MD Jul 28, 2019 23:05
[2019-07-28 23:19] VITALS: BP 119/72
[2019-07-28 23:34] LABS: BASOPHILS % (AUTO) 1.1 % (0.0-2.0); EOSINOPHILS % (AUTO) 3.3 % (0.0-3.0); HEMATOCRIT 44.4 % (42.0-52.0); HEMOGLOBIN 15.8 G/DL (14.2-18.0); LYMPHOCYTES % (AUTO) 27.9 % (20.0-45.0); MEAN CORPUSCULAR VOLUME 85 FL (80-99); MONOCYTES % (AUTO) 11.8 % (1.0-10.0); NEUTROPHILS % (AUTO) 55.9 % (45.0-75.0); PLATELET COUNT 307 K/UL (150-450); RED BLOOD COUNT 5.25 M/UL (4.70-6.10); RED CELL DISTRIBUTION WIDTH 11.9 % (11.6-14.8); WHITE BLOOD COUNT 8.6 K/UL (4.8-10.8)
[2019-07-28 23:41] LABS: APPEARANCE,URINE CLEAR; BILIRUBIN, URINE NEGATIVE (NEGATIVE); GLUCOSE, URINE (UA) NEGATIVE (NEGATIVE); KETONES,URINE NEGATIVE (NEGATIVE); LEUKOCYTE ESTERASE ,URINE NEGATIVE (NEGATIVE); NITRITE,URINE NEGATIVE (NEGATIVE); PH,URINE 6 (4.5-8.0); PROTEIN,URINE 2+ (NEGATIVE); UROBILINOGEN,URINE 4 MG/DL (0.0-1.0)
[2019-07-28 23:45] LABS: ANION GAP 8 mmol/L (5-15); BLOOD UREA NITROGEN 15 mg/dL (7-18); CARBON DIOXIDE 29 MMOL/L (21-32); CHLORIDE 102 MMOL/L (98-107); CREATININE 1.1 MG/DL (0.55-1.30); POTASSIUM 3.7 MMOL/L (3.5-5.1); SODIUM 139 MMOL/L (136-145)
[2019-07-28 23:47] LABS: COLOR,URINE YELLOW
[2019-07-28 23:57] LABS: ALANINE AMINOTRANSFERASE 44 U/L (12-78); ALBUMIN 3.9 G/DL (3.4-5.0); ALKALINE PHOSPHATASE 88 U/L (46-116); ASPARTATE AMINO TRANSFERASE 27 U/L (15-37); BILIRUBIN,TOTAL 0.5 MG/DL (0.2-1.0)
[2019-07-29 00:30] VITALS: BP 116/86
[2019-07-29 02:00] VITALS: BP 103/86
[2019-07-29 04:00] VITALS: BP 92/83
[2019-07-29 06:04] VITALS: BP 105/63
[2019-07-29 06:06] VITALS: BP 99/59
== END 2019-07-29 06:06 ==
LOC: EMR 22:58
DX: F15.10 Other stimulant abuse, uncomplicated (principal); F23 Brief psychotic disorder; Z91.89 Other specified personal risk factors, not elsewhere classified; Z72.0 Tobacco use
CPT/HCPCS: 36415; 80053; 80307; 81003; 85025; G0480; G0481; Z7502; 99284

== ENCOUNTER 2019-08-11 09:45 | Emergency (ER) | payer MEDICAID ==
[~2019-08-11] VITALS: Ht 167.6 cm; Wt 88.5 kg
--- NOTE | 2019-08-11 09:50 | NUR ---
ED Nurse Note: Pt brought by ambulance to ED w/ c/o L wrist pain since yesterday. Pt thinks he was possibly exposed to poison abraham. Patient stats "feels like he's been poisoned by something." Pt alert&ox4, ambulatory. Pt walking around in room. Pt has psych hx. Pt VSS. Pt states feels throat irritation, Dr Mitchell aware.
[2019-08-11 10:02] VITALS: BP 150/88
--- NOTE | 2019-08-11 10:04 | Emergency Room Report ---
History of Present Illness General Chief Complaint: Pain Source: Patient, EMS Present Illness HPI Patient presents complaining that he feels he is been poisoned. He feels a bump in his left wrist. It happened a few hours ago. He also feels like his throat is closing. He is not sure what he was exposed to. He thinks he inhaled something. He thinks they have been spraying at the hotel where he has been staying. Initially he denies any methamphetamine use but then as the examiner's leaving the room he says that he has been taking Adderall. Patient was transported by EMS. No fevers, chills, chest pain, palpitations, nausea, vomiting, diarrhea, dysuria , abdominal pain, shortness of breath, visual changes, dizziness, headache. Patient denies prior psychiatric illness. He denies suicidal or homicidal ideation. Allergies: Coded Allergies: No Known Allergies (Unverified , 07/28/19) Patient History Past Medical History: see triage record Social History: tobacco use, drug use Social History Narrative at a hotel Reviewed Nursing Documentation: PMH: Agreed; PSxH: Agreed Nursing Documentation-PMH History Of Psychiatric Problem: Yes Review of Systems All Other Systems: negative except mentioned in HPI Physical Exam Vital Signs Date Time Temp Pulse Resp B/P (MAP) Pulse Ox O2 Delivery O2 Flow Rate FiO2 08/11/19 09:40 98.8 112 16 157/90 (112) 98 Sp02 EP Interpretation: reviewed, normal General Appearance: alert/responsive, no apparent distress, GCS 15, non-toxic Head: atraumatic Eyes: PERRL, lids + conjunctiva normal ENT: hearing intact, oropharynx normal, uvula midline, moist mucus membranes, no angioedema Neck: supple/symm/no masses, no meningismus Respiratory: effort normal, no wheezing, chest symmetrical Cardiovascular: regular rate, rhythm, no edema Cardiovascular #2: 2+ carotid (R), 2+ carotid (L), 2+ dorsalis pedis (R), 2+ dorsalis pedis (L) Gastrointestinal: non-tender, no mass, non-distended, no rebound/guarding, normal bowel sounds Musculoskeletal: gait & station normal, normal ROM, strength & tone normal, other - Mild tenderness left wrist with full range of motion and good strength no warmth Neurologic: oriented x3, sensory intact, normal speech Psychiatric: no suicidal/homicidal ideation, other - Slight paranoid thought process Skin: well hydrated, rash - Left dorsum of wrist with minimal erythema and what appears to be excoriations Lymphatic: normal inspection Medical Decision Making Diagnostic Impression: Primary Impression: Wrist pain Qualified Codes: M25.532 - Pain in left wrist Additional Impressions: Throat pain Amphetamine adverse reaction Qualified Codes: T43.625A - Adverse effect of amphetamines, initial encounter ER Course Patient presents with left wrist pain, skin changes and feeling that his throat is closing. Differential includes allergic reaction, toxic ingestion, electrolyte imbalance, pharyngitis amongst others. The airway is not compromised at this time and the pharynx appears normal. Due to the examination x-rays of the wrist are not indicated. Labs are indicated. Saline hydration ordered. Labs remarkable for positive amphetamine and THC. Discussed results with patient. In talking about follow-up he says that the Adderall was not prescribed but he bought it from a friend. I discussed that this could be mixed with other ingredients and that he needed to stop using the Adderall. In addition I stated that most likely most of his symptoms were caused from use of the Adderall at this time. No apparent medical emergency at this time. Discussed outpatient follow-up with the patient. Patient stable for outpatient observation and treatment. Laboratory Tests Test 08/11/19 10:08 08/11/19 10:10 White Blood Count 10.7 K/UL (4.8-10.8) Red Blood Count 5.65 M/UL (4.70-6.10) Hemoglobin 16.7 G/DL (14.2-18.0) Hematocrit 49.8 % (42.0-52.0) Mean Corpuscular Volume 88 FL (80-99) Mean Corpuscular Hemoglobin 29.5 PG (27.0-31.0) Mean Corpuscular Hemoglobin Concent 33.5 G/DL (32.0-36.0) Red Cell Distribution Width 12.3 % (11.6-14.8) Platelet Count 340 K/UL (150-450) Mean Platelet Volume 6.5 FL (6.5-10.1) Neutrophils (%) (Auto) 76.0 % (45.0-75.0) H Lymphocytes (%) (Auto) 15.2 % (20.0-45.0) L Monocytes (%) (Auto) 7.5 % (1.0-10.0) Eosinophils (%) (Auto) 0.5 % (0.0-3.0) Basophils (%) (Auto) 0.8 % (0.0-2.0) Sodium Level 139 MMOL/L (136-145) Potassium Level 3.6 MMOL/L (3.5-5.1) Chloride Level 101 MMOL/L (98-107) Carbon Dioxide Level 27 MMOL/L (21-32) Anion Gap 11 mmol/L (5-15) Blood Urea Nitrogen 14 mg/dL (7-18) Creatinine 1.0 MG/DL (0.55-1.30) Estimate Glomerular Filtration Rate > 60 mL/min (>60) Glucose Level 107 MG/DL (74-106) H Calcium Level 9.9 MG/DL (8.5-10.1) Total Bilirubin 0.8 MG/DL (0.2-1.0) Aspartate Amino Transferase (AST) 35 U/L (15-37) Alanine Aminotransferase (ALT) 83 U/L (12-78) H Alkaline Phosphatase 93 U/L (46-116) Total Creatine Kinase 182 U/L (26-308) Total Protein 9.3 G/DL (6.4-8.2) H Albumin 4.9 G/DL (3.4-5.0) Globulin 4.4 g/dL Albumin/Globulin Ratio 1.1 (1.0-2.7) Salicylates Level 0.5 ug/mL (2.8-20) L Acetaminophen Level < 2 MCG/ML (10-30) L Serum Alcohol < 3 mg/dL Urine Opiates Screen Negative (NEGATIVE) Urine Barbiturates Screen Negative (NEGATIVE) Phencyclidine (PCP) Screen Negative (NEGATIVE) Urine Amphetamines Screen Positive (NEGATIVE) H Urine Benzodiazepines Screen Negative (NEGATIVE) Urine Cocaine Screen Negative (NEGATIVE) Urine Marijuana (THC) Screen Positive (NEGATIVE) H Last Vital Signs Date Time Temp Pulse Resp B/P (MAP) Pulse Ox O2 Delivery O2 Flow Rate FiO2 08/11/19 13:31 98.7 79 19 143/87 100 Room Air Status: improved Disposition: HOME, SELF-CARE Condition: Improved Scripts Ibuprofen* (MOTRIN*) 600 Mg Tablet 600 MG ORAL Q6H PRN for For Pain, #16 TAB 0 Refills Prov: Holden Mitchell MD 08/11/19 Holden Mitchell MD Aug 11, 2019 10:04
[2019-08-11 11:01] LABS: BASOPHILS % (AUTO) 0.8 % (0.0-2.0); EOSINOPHILS % (AUTO) 0.5 % (0.0-3.0); HEMATOCRIT 49.8 % (42.0-52.0); HEMOGLOBIN 16.7 G/DL (14.2-18.0); LYMPHOCYTES % (AUTO) 15.2 % (20.0-45.0); MEAN CORPUSCULAR VOLUME 88 FL (80-99); MONOCYTES % (AUTO) 7.5 % (1.0-10.0); PLATELET COUNT 340 K/UL (150-450); RED BLOOD COUNT 5.65 M/UL (4.70-6.10); RED CELL DISTRIBUTION WIDTH 12.3 % (11.6-14.8); WHITE BLOOD COUNT 10.7 K/UL (4.8-10.8)
[2019-08-11 11:18] LABS: ANION GAP 11 mmol/L (5-15); BLOOD UREA NITROGEN 14 mg/dL (7-18); CALCIUM 9.9 MG/DL (8.5-10.1); CARBON DIOXIDE 27 MMOL/L (21-32); CHLORIDE 101 MMOL/L (98-107); POTASSIUM 3.6 MMOL/L (3.5-5.1); SODIUM 139 MMOL/L (136-145)
[2019-08-11 11:22] LABS: ALANINE AMINOTRANSFERASE 83 U/L (12-78); ALBUMIN 4.9 G/DL (3.4-5.0); ALBUMIN/GLOBULIN RATIO 1.1 (1.0-2.7); ALKALINE PHOSPHATASE 93 U/L (46-116); ASPARTATE AMINO TRANSFERASE 35 U/L (15-37); BILIRUBIN,TOTAL 0.8 MG/DL (0.2-1.0); CREATINE KINASE 182 U/L (26-308)
[2019-08-11] MEDS ORDERED: IBUPROFEN600 MG ORAL (13:23)
[2019-08-11 13:31] VITALS: BP 143/87
[2019-08-11] MEDS ORDERED: ALBUTEROL SULF8.5 GM INH (18:09)
== END 2019-08-11 13:30 | disposition home or self-care (01) ==
LOC: EDBD 09:45 → EMR 10:05
DX: R07.0 Pain in throat (principal); T43.625A Adverse effect of amphetamines, initial encounter; M25.532 Pain in left wrist; Y92.59 Other trade areas as the place of occurrence of the external cause
CPT/HCPCS: 36415; 80053; 80307; 82550; 85025; 96360; G0480; G0481; J7030; Z7502; 99284

== ENCOUNTER 2019-09-29 00:12 | Emergency (ER) | payer MEDICAID, OTHER ==
[~2019-09-29] VITALS: Ht 167.6 cm; Wt 81.6 kg
[~2019-09-29 00:12] MED LIST changes: +ALBUTEROL SULF8.5 GM INH; +IBUPROFEN600 MG ORAL
--- NOTE | 2019-09-29 00:20 | NUR ---
ED Nurse Note: Patient walked in from home d/t abdominal pain 03/19. Patient aao x 4 and ambulatory. Patient calm, comfortable, and stable upon assessment.
[2019-09-29 00:21] VITALS: BP 129/82
[2019-09-29] MEDS ORDERED: OMEPRAZOLE40 M1 ORAL (01:10)
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
[2019-09-29 01:15] VITALS: BP 127/89
--- NOTE | 2019-09-29 01:15 | NUR ---
ER DISCHARGE NOTE: Patient is cleared to be discharged per ERMD, pt is aox4, on room air, with stable vital signs. pt was given dc instructions, pt was able to verbalize understanding, pt id band removed. pt is able to ambulate with steady gait. pt took all belongings. pt stable upon discharge.
== END 2019-09-29 01:15 | disposition home or self-care (01) ==
LOC: EMR 00:24
DX: R10.13 Epigastric pain (principal); F15.10 Other stimulant abuse, uncomplicated
CPT/HCPCS: 99282

== ENCOUNTER 2020-04-01 22:42 | Emergency (ER) | payer OTHER ==
[~2020-04-01] VITALS: Ht 167.6 cm; Wt 83.9 kg
[~2020-04-01 22:42] MED LIST changes: +OMEPRAZOLE40 M1 ORAL
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
[2020-04-01 22:48] VITALS: BP 134/92
--- NOTE | 2020-04-01 23:02 | Emergency Room Report ---
History of Present Illness General Chief Complaint: Substance Abuse Source: Patient Present Illness HPI This a 30-year-old male with a history of methamphetamine abuse. He called 911 with chief complaint of abdominal pain. He said he felt his abdomen is gurgling and possibly have some thing in it. He has been here and of the hospital for the same complaint in the past. He had CT scan and lab work done that was unremarkable. Denies any fever chills but no nausea no vomiting. He said he felt there is fluid in his chest also. Not suicidal homicidal. Nothing made it better. Nothing made it worse. 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 Patient History Past Medical History: see triage record, old chart reviewed Past Surgical History: none Pertinent Family History: none Social History: Reports: drug use Immunizations: other Reviewed Nursing Documentation: PMH: Agreed; PSxH: Agreed Nursing Documentation-PMH Past Medical History: No Stated History Review of Systems Eye: Denies: eye pain, blurred vision ENT: Denies: ear pain, nose congestion, throat swelling Respiratory: Denies: cough, shortness of breath Cardiovascular: Denies: chest pain, palpitations Gastrointestinal: Reports: abdominal pain; Denies: diarrhea, nausea, vomiting Musculoskeletal: Denies: back pain, joint pain Skin: Denies: rash Neurological: Denies: headache, numbness Endocrine: Denies: increased thirst, increased urine Hematologic/Lymphatic: Denies: easy bruising All Other Systems: negative except mentioned in HPI Physical Exam Vital Signs Date Time Temp Pulse Resp B/P (MAP) Pulse Ox O2 Delivery O2 Flow Rate FiO2 04/01/20 22:39 98.6 120 24 134/92 (106) 100 Room Air Vitals with tachycardia Sp02 EP Interpretation: reviewed, normal General Appearance: well appearing, no apparent distress, alert Head: normocephalic, atraumatic Eyes: bilateral eye PERRL, bilateral eye EOMI ENT: hearing grossly normal, normal pharynx Neck: full range of motion, supple, no meningismus Respiratory: chest non-tender, lungs clear, normal breath sounds Cardiovascular #1: regular rate, rhythm, no murmur, tachycardia - Rate 105 Gastrointestinal: normal bowel sounds, non tender, no mass, no organomegaly, no bruit, non-distended, abnormal bowel sounds - Bowel sounds increased Musculoskeletal: back normal, normal range of motion, gait/station normal Psychiatric: mood/affect normal Medical Decision Making Diagnostic Impression: Primary Impression: Methamphetamine abuse Additional Impression: Abdominal pain Qualified Codes: R10.84 - Generalized abdominal pain ER Course Presents with methamphetamine abuse. I suspect he has some paranoia and anxiety associated with it. Abdominal exam is benign. No guarding or rebound. He has recent blood work and CT scan done. I see no need to repeat it. Will discharge home. Last Vital Signs Date Time Temp Pulse Resp B/P (MAP) Pulse Ox O2 Delivery O2 Flow Rate FiO2 04/01/20 22:48 120 24 Room Air 04/01/20 22:48 98.6 134/92 100 Status: unchanged Disposition: HOME, SELF-CARE Condition: Stable Patient Instructions: Stimulant Use Disorder-Methamphetamines Additional Instructions: Stop using drugs. Follow-up with in 7 days. Go to rehab. Return if worse. Baldemar Butt MD Apr 01, 2020 23:02
[2020-04-01] MEDS ORDERED: FAMOTIDINE20 MG ORAL (23:03)
[2020-04-01 23:10] VITALS: BP 128/88
--- NOTE | 2020-04-01 23:10 | NUR ---
ER DISCHARGE NOTE: Patient is cleared to be discharged per ERMD, pt is aox4, on room air, with stable vital signs. pt was given dc instructions, pt was able to verbalize understanding, pt id band removed. pt is able to ambulate with steady gait. pt took all belongings.
== END 2020-04-01 23:10 | disposition home or self-care (01) ==
LOC: EDBD 22:42 → EMR 23:02
DX: F15.10 Other stimulant abuse, uncomplicated (principal); R10.84 Generalized abdominal pain
CPT/HCPCS: 99281

== ENCOUNTER 2020-04-13 20:20 | Emergency (ER) | payer OTHER ==
[~2020-04-13] VITALS: Ht 167.6 cm; Wt 81.6 kg
[~2020-04-13 20:20] MED LIST changes: +FAMOTIDINE20 MG ORAL
[2020-04-13 20:29] VITALS: BP 142/86
[2020-04-13] MEDS ORDERED: Dicyclomine HCl 10mg/5ml oral soln ORAL ONE (20:30)
[2020-04-13] MEDS ORDERED: Lidocaine 2% Visc 15ml soln ORAL ONE (20:30)
[2020-04-13] MEDS ORDERED: Mylanta II UD 30ml ORAL ONE (20:30)
--- NOTE | 2020-04-13 20:43 | Emergency Room Report ---
History of Present Illness General Chief Complaint: Abdominal Pain Source: Patient Present Illness HPI 30-year-old male presents the ED for evaluation. Brought in by EMS from home. States that he is having abdominal pain. States he feels like he is "leaking". Notes some diarrhea. Pain is cramping, 8 out of 10, nonradiating. Denies nausea or vomiting. States he is having chest pain. Also states he is having right shoulder pain after a fall today. Patient also admits to meth use. No other aggravating relieving factors. 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 COVID-19 Screening: Negative COVID-19 COVID-19 Testing Source: prop attendant [facility] [place] Patient History Past Medical History: none Past Surgical History: none Pertinent Family History: none Social History: Reports: drug use; Denies: smoking, alcohol use Immunizations: UTD Reviewed Nursing Documentation: PMH: Agreed; PSxH: Agreed Review of Systems All Other Systems: negative except mentioned in HPI Physical Exam Vital Signs Date Time Temp Pulse Resp B/P (MAP) Pulse Ox O2 Delivery O2 Flow Rate FiO2 04/13/20 20:16 98.6 118 18 142/86 (104) 98 Room Air Sp02 EP Interpretation: reviewed, normal General Appearance: no apparent distress, alert, GCS 15, non-toxic Head: normocephalic, atraumatic Eyes: bilateral eye normal inspection, bilateral eye PERRL ENT: hearing grossly normal, normal pharynx, no angioedema, normal voice Neck: full range of motion, supple/symm/no masses Respiratory: chest non-tender, lungs clear, normal breath sounds, speaking full sentences Cardiovascular #1: regular rate, rhythm, no edema Cardiovascular #2: 2+ carotid (R), 2+ carotid (L), 2+ radial (R), 2+ radial (L) , 2+ dorsalis pedis (R), 2+ dorsalis pedis (L) Gastrointestinal: normal bowel sounds, non tender, soft, non-distended, no guarding, no rebound Rectal: deferred Genitourinary: normal inspection, no CVA tenderness Musculoskeletal: back normal, normal range of motion, gait/station normal, tender - R shoulder Neurologic: alert, motor strength/tone normal, oriented x3, sensory intact, responsive, speech normal Psychiatric: judgement/insight normal, memory normal, mood/affect normal, no suicidal/homicidal ideation Reflexes: 3+ bicep (R), 3+ bicep (L), 3+ tricep (R), 3+ tricep (L), 3+ knee (R) , 3+ knee (L) Skin: no rash Lymphatic: no adenopathy Medical Decision Making Diagnostic Impression: Primary Impression: Gastroenteritis Additional Impression: Methamphetamine abuse ER Course Hospital Course 30-year-old male presents with abdominal pain chest pain shoulder pain. Diarrhea. differential diagnosis: gastritis, SBO, cholecystits, gastroenteritis Clinical course Patient placed on stretcher. On court recording monitor. After initial history and physical I ordered labs, IV fluids, meds, EKG, shoulder xay Labs - no leukocytosis, electrolytes ok, LFTs normal, trop negative EKG - NSR no acute ischemic changes interpreted by me shoulder xray no acute process On reassessment patient states he feels better. History of methamphetamine use. Admits to methamphetamine use. Abdomen soft. Shoulder x-ray negative. Patient's been here previously for similar presentations. Safe for discharge close outpatient follow-up. I feel this is a highly complex case requiring extensive working including EKG/ Rhythm strip, Xray/CT/US, Blood/urine lab work, repeat exams while in ED, and administration of strong opiates/narcotics for pain control, admission to hospital or close patient follow up. Diagnosis - gastroenteritis, methamphetamine abuse Stable and discharged to home with prescriptions for bentyl, pepcid. Followup with PMD. Return to ED if symptoms recur or worsen Labs Test 04/13/20 20:55 White Blood Count 7.2 K/UL (4.8-10.8) Red Blood Count 5.07 M/UL (4.70-6.10) Hemoglobin 14.9 G/DL (14.2-18.0) Hematocrit 44.2 % (42.0-52.0) Mean Corpuscular Volume 87 FL (80-99) Mean Corpuscular Hemoglobin 29.3 PG (27.0-31.0) Mean Corpuscular Hemoglobin Concent 33.6 G/DL (32.0-36.0) Red Cell Distribution Width 13.2 % (11.6-14.8) Platelet Count 235 K/UL (150-450) Mean Platelet Volume 8.7 FL (6.5-10.1) Neutrophils (%) (Auto) 67.5 % (45.0-75.0) Lymphocytes (%) (Auto) 19.9 % (20.0-45.0) Monocytes (%) (Auto) 8.5 % (1.0-10.0) Eosinophils (%) (Auto) 3.2 % (0.0-3.0) Basophils (%) (Auto) 0.9 % (0.0-2.0) Urine Color Yellow Urine Appearance Cloudy Urine pH 6.5 (4.5-8.0) Urine Specific [place] 1.020 (1.005-1.035) Urine Protein Negative (NEGATIVE) Urine Glucose (UA) Negative (NEGATIVE) Urine Ketones Negative (NEGATIVE) Urine Blood Negative (NEGATIVE) Urine Nitrite Negative (NEGATIVE) Urine Bilirubin Negative (NEGATIVE) Urine Urobilinogen Normal MG/DL (0.0-1.0) Urine Leukocyte Esterase Negative (NEGATIVE) Sodium Level 142 MMOL/L (136-145) Potassium Level 3.7 MMOL/L (3.5-5.1) Chloride Level 104 MMOL/L (98-107) Carbon Dioxide Level 28 MMOL/L (21-32) Anion Gap 10 mmol/L (5-15) Blood Urea Nitrogen 12 mg/dL (7-18) Creatinine 1.0 MG/DL (0.55-1.30) Estimat Glomerular Filtration Rate > 60 mL/min (>60) Glucose Level 104 MG/DL (74-106) Calcium Level 9.0 MG/DL (8.5-10.1) Total Bilirubin 0.7 MG/DL (0.2-1.0) Aspartate Amino Transf (AST/SGOT) 37 U/L (15-37) Alanine Aminotransferase (ALT/SGPT) 90 U/L (12-78) Alkaline Phosphatase 108 U/L (46-116) Troponin I 0.000 ng/mL (0.000-0.056) Total Protein 8.0 G/DL (6.4-8.2) Albumin 4.1 G/DL (3.4-5.0) Globulin 3.9 g/dL Albumin/Globulin Ratio 1.1 (1.0-2.7) Lipase 107 U/L (73-393) EKG Diagnostic Results Rate: normal Rhythm: NSR ST Segments: no acute changes ASA given to the pt in ED: No Rhythm Strip Diag. Results EP Interpretation: yes Rhythm: NSR, no PVC's, no ectopy Other X-Ray Diagnostic Results Other X-Ray Diagnostic Results : X-Ray ordered: R shoulder # of Views/Limited Vs Complete: 3 View Indication: Pain EP Interpretation: Yes Interpretation: no dislocation, no soft tissue swelling, no fractures Impression: No acute disease Electronically Signed by: Electronically signed by Panda Scott MD Last Vital Signs Date Time Temp Pulse Resp B/P (MAP) Pulse Ox O2 Delivery O2 Flow Rate FiO2 04/13/20 20:29 98.6 116 18 142/86 98 Room Air Status: improved Disposition: HOME, SELF-CARE Condition: Stable Scripts Dicyclomine Hcl* (DICYCLOMINE HCL*) 10 Mg Capsule 10 MG ORAL QID, #20 CAP Prov: Panda Scott MD 04/13/20 Famotidine* (Pepcid 20mg tablet*) 20 Mg Tablet 20 MG ORAL DAILY, #30 TAB 0 Refills Prov: Panda Scott MD 04/13/20 Panda Scott MD Apr 13, 2020 20:43
[2020-04-13 21:11] LABS: ANION GAP 10 mmol/L (5-15); BLOOD UREA NITROGEN 12 mg/dL (7-18); CARBON DIOXIDE 28 MMOL/L (21-32); CHLORIDE 104 MMOL/L (98-107); POTASSIUM 3.7 MMOL/L (3.5-5.1); SODIUM 142 MMOL/L (136-145)
[2020-04-13 21:17] LABS: ALANINE AMINOTRANSFERASE 90 U/L (12-78); ALBUMIN 4.1 G/DL (3.4-5.0); ALBUMIN/GLOBULIN RATIO 1.1 (1.0-2.7); ALKALINE PHOSPHATASE 108 U/L (46-116); ASPARTATE AMINO TRANSFERASE 37 U/L (15-37); BILIRUBIN,TOTAL 0.7 MG/DL (0.2-1.0)
[2020-04-13 21:20] LABS: APPEARANCE,URINE CLOUDY; BILIRUBIN, URINE NEGATIVE (NEGATIVE); GLUCOSE, URINE (UA) NEGATIVE (NEGATIVE); KETONES,URINE NEGATIVE (NEGATIVE); LEUKOCYTE ESTERASE ,URINE NEGATIVE (NEGATIVE); NITRITE,URINE NEGATIVE (NEGATIVE); PH,URINE 6.5 (4.5-8.0); PROTEIN,URINE NEGATIVE (NEGATIVE); UROBILINOGEN,URINE NORMAL MG/DL (0.0-1.0)
[2020-04-13 21:24] LABS: COLOR,URINE YELLOW
[2020-04-13 21:26] LABS: BASOPHILS % (AUTO) 0.9 % (0.0-2.0); EOSINOPHILS % (AUTO) 3.2 % (0.0-3.0); HEMATOCRIT 44.2 % (42.0-52.0); HEMOGLOBIN 14.9 G/DL (14.2-18.0); LYMPHOCYTES % (AUTO) 19.9 % (20.0-45.0); MEAN CORPUSCULAR VOLUME 87 FL (80-99); MONOCYTES % (AUTO) 8.5 % (1.0-10.0); NEUTROPHILS % (AUTO) 67.5 % (45.0-75.0); PLATELET COUNT 235 K/UL (150-450); RED BLOOD COUNT 5.07 M/UL (4.70-6.10); RED CELL DISTRIBUTION WIDTH 13.2 % (11.6-14.8); WHITE BLOOD COUNT 7.2 K/UL (4.8-10.8)
--- NOTE | 2020-04-13 21:34 | Diagnostic Imaging Report ---
EXAM: XR Right Shoulder Complete, 2 or More Views CLINICAL HISTORY: PAIN TECHNIQUE: Two or more views of the right shoulder. COMPARISON: No relevant prior studies available. FINDINGS: Bones/joints: No fracture or malalignment. Mild degenerative changes at the acromioclavicular joint with a small pericapsular calcification. Soft tissues: Unremarkable. IMPRESSION: No fracture or malalignment.
[2020-04-13] MEDS ORDERED: DICYCLOMINE HCL10 MG ORAL (21:57)
[2020-04-13] MEDS ORDERED: FAMOTIDINE20 MG ORAL (21:57)
[2020-04-13 22:49] VITALS: BP 128/78
--- NOTE | 2020-04-18 01:58 | Cardiology Report ---
APPROVED REPORT EKG Measurement Heart [id number] <Conclusion> Sinus rhythm with short MS Otherwise normal ECG
== END 2020-04-13 22:57 | disposition home or self-care (01) ==
LOC: EDBD 20:20 → EMR 20:35
DX: K52.9 Noninfective gastroenteritis and colitis, unspecified (principal); F15.10 Other stimulant abuse, uncomplicated; R10.9 Unspecified abdominal pain; R19.7 Diarrhea, unspecified; R07.9 Chest pain, unspecified; M25.511 Pain in right shoulder
CPT/HCPCS: 36415; 73030; 80053; 81003; 83690; 84484; 85025; 93005; 96361; 96374; J7030; S0028; Z7502; 99284

== ENCOUNTER 2020-04-20 16:27 | Emergency (ER) | payer OTHER ==
[~2020-04-20] VITALS: Ht 167.6 cm; Wt 83.9 kg
[2020-04-20 16:27] VITALS: BP 130/88
[~2020-04-20 16:27] MED LIST changes: +DICYCLOMINE HCL10 MG ORAL
--- NOTE | 2020-04-20 17:21 | Diagnostic Imaging Report ---
Indication: Chest pain Technique: One view of the chest Comparison: 08/11/2019 Findings: Dextrocardia with left-sided aortic arch and normal situs again demonstrated. Lungs pleural spaces remain clear. Interim further healing and remodeling of previously demonstrated right clavicular fracture deformity. Impression: No acute process
[2020-04-20 18:06] LABS: BASOPHILS % (AUTO) 0.8 % (0.0-2.0); EOSINOPHILS % (AUTO) 1.9 % (0.0-3.0); HEMATOCRIT 46.7 % (42.0-52.0); HEMOGLOBIN 15.7 G/DL (14.2-18.0); LYMPHOCYTES % (AUTO) 19.9 % (20.0-45.0); MEAN CORPUSCULAR VOLUME 87 FL (80-99); MONOCYTES % (AUTO) 6.8 % (1.0-10.0); NEUTROPHILS % (AUTO) 70.6 % (45.0-75.0); PLATELET COUNT 276 K/UL (150-450); RED BLOOD COUNT 5.36 M/UL (4.70-6.10); RED CELL DISTRIBUTION WIDTH 12.9 % (11.6-14.8); WHITE BLOOD COUNT 9.4 K/UL (4.8-10.8)
[2020-04-20 18:08] LABS: APPEARANCE,URINE CLEAR; BILIRUBIN, URINE NEGATIVE (NEGATIVE); GLUCOSE, URINE (UA) NEGATIVE (NEGATIVE); KETONES,URINE 2+ (NEGATIVE); LEUKOCYTE ESTERASE ,URINE NEGATIVE (NEGATIVE); NITRITE,URINE NEGATIVE (NEGATIVE); PH,URINE 5 (4.5-8.0); PROTEIN,URINE 2+ (NEGATIVE); UROBILINOGEN,URINE NORMAL MG/DL (0.0-1.0)
[2020-04-20 18:09] LABS: ANION GAP 12 mmol/L (5-15); BLOOD UREA NITROGEN 11 mg/dL (7-18); CALCIUM 9.7 MG/DL (8.5-10.1); CARBON DIOXIDE 25 MMOL/L (21-32); CHLORIDE 103 MMOL/L (98-107); POTASSIUM 3.7 MMOL/L (3.5-5.1); SODIUM 140 MMOL/L (136-145)
[2020-04-20 18:14] LABS: ALANINE AMINOTRANSFERASE 49 U/L (12-78); ALBUMIN 4.4 G/DL (3.4-5.0); ALBUMIN/GLOBULIN RATIO 1.1 (1.0-2.7); ALKALINE PHOSPHATASE 86 U/L (46-116); ASPARTATE AMINO TRANSFERASE 24 U/L (15-37); BILIRUBIN,TOTAL 0.7 MG/DL (0.2-1.0)
[2020-04-20 18:21] LABS: COLOR,URINE YELLOW
--- NOTE | 2020-04-20 18:32 | Emergency Room Report ---
History of Present Illness General Chief Complaint: Abdominal Pain Present Illness HPI 30-year-old male with history of methamphetamine abuse with been here multiple times regards to methamphetamine abuse and abdominal pain here complaining of epigastric and right-sided abdominal pain when taking deep breaths however denies any guarding. Denies any diarrhea, nausea vomiting, bloody stools. Also reports that he feels like his lungs are hurting and he reports that he feels like his neighbors are poisoning him with mercury. Patient admits to marijuana use as well as methamphetamine use. Denies tobacco smoke, alcohol intake. Denies any fever and chills, cough and congestion. Denies any urinary symptoms. Has not taken medication for symptom relief. Is sitting comfortably with stable vital signs. Patient was brought in by the paramedics. Allergies: Coded Allergies: No Known Allergies (Unverified , 07/28/19) COVID-19 Screening Contact w/high risk pt: No Experienced COVID-19 symptoms?: Yes COVID-19 Testing performed RADIO PROGRAM CHECKER: No Patient History Past Medical History: see triage record Past Surgical History: none Pertinent Family History: none Immunizations: UTD Reviewed Nursing Documentation: PMH: Agreed; PSxH: Agreed Nursing Documentation-PMH History Of Psychiatric Problem: Yes Review of Systems All Other Systems: negative except mentioned in HPI Physical Exam Vital Signs Date Time Temp Pulse Resp B/P (MAP) Pulse Ox O2 Delivery O2 Flow Rate FiO2 04/20/20 16:22 98.4 112 19 132/91 (105) 99 Room Air Sp02 EP Interpretation: reviewed, normal General Appearance: no apparent distress, alert, GCS 15, non-toxic Head: normocephalic, atraumatic Eyes: bilateral eye normal inspection, bilateral eye PERRL ENT: hearing grossly normal, normal pharynx, no angioedema, normal voice Neck: full range of motion, supple, thyroid normal, no meningismus, no bony tend, supple/symm/no masses Respiratory: chest non-tender, lungs clear, normal breath sounds, no rhonchi, no respiratory distress, no retraction, no wheezing, speaking full sentences Cardiovascular #1: regular rate, rhythm, no edema Gastrointestinal: normal bowel sounds, non tender, soft, no mass, no organomegaly, no peritonitis, no bruit, non-distended, no guarding, no hernia, no pulsatile mass, no rebound, other - Negative Rivas's Rectal: deferred Genitourinary: no CVA tenderness Musculoskeletal: back normal Neurologic: alert, motor strength/tone normal, oriented x3, sensory intact, responsive, speech normal Psychiatric: judgement/insight normal, memory normal, mood/affect normal, no suicidal/homicidal ideation Skin: no rash Lymphatic: no adenopathy Medical Decision Making PA Attestation All diagnoses and treatment plans were reviewed and discussed with my supervising physician Dr. Hawk Diagnostic Impression: Primary Impression: Methamphetamine abuse Additional Impressions: Abdominal pain Marijuana abuse ER Course 30-year-old male with history of methamphetamine abuse with been here multiple times regards to methamphetamine abuse and abdominal pain here complaining of epigastric and right-sided abdominal pain when taking deep breaths however denies any guarding. Denies any diarrhea, nausea vomiting, bloody stools. Also reports that he feels like his lungs are hurting and he reports that he feels like his neighbors are poisoning him with mercury. Patient admits to marijuana use as well as methamphetamine use. Denies tobacco smoke, alcohol intake. Denies any fever and chills, cough and congestion. Denies any urinary symptoms. Has not taken medication for symptom relief. Is sitting comfortably with stable vital signs. Patient was brought in by the paramedics. Ddx considered but are not limited to: Gastroenteritis, gastritis, cholecystitis , abdominal pain secondary to marijuana use, methamphetamine use Vital signs: are WNL, pt. is afebrile H&PE are most consistent with: Methamphetamine and marijuana abuse, abdominal pain ORDERS: CBC, CMP, UA, lipase, tox screen, EtOH levels, chest x-ray omeprazole, Tylenol ED INTERVENTIONS: None required at this time. At this time for evaluation of your ultrasound or abdominal CT needed patient is nontender to palpation no guarding in the lab results do not suggest any potential abnormality in gallbladder or liver. Patient agrees with this treatment and will follow-up with primary doctor. DISCHARGE: At this time pt. is stable for d/c to home. Will provide printed patient care instructions, and any necessary prescriptions. Care plan and follow up instructions have been discussed with the patient prior to discharge. Avoid use of methamphetamine and marijuana. Take medication as directed, if worsening symptoms return to the emergency room Chest X-Ray Diagnostic Results Chest X-Ray Diagnostic Results : Chest X-Ray Ordered: Yes # of Views/Limited/Complete: 1 View Indication: Other EP Interpretation: Yes ANDREW Xray: Interpretation reviewed, by supervising MD, and agrees with findings. Interpretation: no consolidation, no effusion, no pneumothorax, no acute cardiopulmonary disease Impression: No acute disease Electronically Signed by: Jose Alfredo Roche PA-C Last Vital Signs Date Time Temp Pulse Resp B/P (MAP) Pulse Ox O2 Delivery O2 Flow Rate FiO2 04/20/20 16:27 81 18 Room Air 04/20/20 16:27 98.4 130/88 99 Disposition: HOME, SELF-CARE Condition: Stable Scripts Omeprazole (OMEPRAZOLE) 20 Mg Tablet. 20 MG ORAL DAILY, #30 TAB Prov: Jose Alfredo Malone 04/20/20 Acetaminophen* (TYLENOL EXTRA STRENGTH*) 500 Mg Tablet 500 MG ORAL Q8H PRN for Prn Headache/Temp > 101, #30 TAB 0 Refills Prov: Jose Alfredo Malone 04/20/20 Referrals: PREFERRED [facility],REFERRING (PCP) Patient Instructions: Abdominal Pain, Adult, Stimulant Use Disorder- Amphetamines Additional Instructions: Take medication as directed, follow primary care provider, increase oral hydration, avoid using methamphetamine worsening symptoms return to the emergency room Jose Alfredo Malone Apr 20, 2020 18:32
[2020-04-20] MEDS ORDERED: TYLENOL EXTRA500 MG ORAL (18:33)
[2020-04-20] MEDS ORDERED: OMEPRAZOLE20 M3 ORAL (18:33)
[2020-04-20 18:39] VITALS: BP 126/95
[2020-04-21] MEDS ORDERED: FAMOTIDINE20 MG ORAL (04:58)
== END 2020-04-20 18:39 | disposition home or self-care (01) ==
LOC: EDBD 16:27 → EMR 17:50
DX: F15.10 Other stimulant abuse, uncomplicated (principal); R10.9 Unspecified abdominal pain; F12.10 Cannabis abuse, uncomplicated
CPT/HCPCS: 36415; 71045; 80053; 80307; 81003; 83690; 85025; G0480; Z7502; 99284

== ENCOUNTER 2020-04-21 00:51 | Emergency (ER) | payer OTHER ==
[~2020-04-21] VITALS: Ht 167.6 cm; Wt 65.8 kg
[~2020-04-21 00:51] MED LIST changes: +OMEPRAZOLE20 M3 ORAL; +TYLENOL EXTRA500 MG ORAL
[2020-04-21] MEDS ORDERED: Lidocaine 2% Visc 15ml soln ORAL ONE (01:15)
[2020-04-21] MEDS ORDERED: Mylanta II UD 30ml ORAL ONE (01:15)
[2020-04-21] MEDS ORDERED: Dicyclomine HCl 10mg/5ml oral soln ORAL ONE (01:15)
[2020-04-21 01:36] VITALS: BP 151/84
[2020-04-21 03:26] VITALS: BP 135/84
[2020-04-21] MEDS ORDERED: FAMOTIDINE20 MG ORAL (04:58)
[2020-04-21 05:02] VITALS: BP 130/81
--- NOTE | 2020-04-22 07:30 | Emergency Room Report ---
History of Present Illness General Chief Complaint: Abdominal Pain Source: Patient, EMS Present Illness HPI 30-year-old male presents the ED for evaluation. Brought in by EMS from Street. States that he is having abdominal pain and "leaking" in his abdomen. Pain is 7 out of 10, dull, nonradiating. Patient states that her EMS patient was seen earlier in ED today. Patient states pain is different than before. Patient is well-known to [facility]. Has history of methamphetamine use. Patient states that he stopped using methamphetamines. States his last use was yesterday. Denies alcohol use. Denies chest pain or shortness of breath. Denies diarrhea. No other aggravating relieving factors. 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 Patient History Past Medical History: none Past Surgical History: none Pertinent Family History: none Social History: Reports: drug use; Denies: smoking, alcohol use Immunizations: UTD Reviewed Nursing Documentation: PMH: Agreed; PSxH: Agreed Nursing Documentation-PMH Past Medical History: No History, Except For Review of Systems All Other Systems: negative except mentioned in HPI Physical Exam Vital Signs Date Time Temp Pulse Resp B/P (MAP) Pulse Ox O2 Delivery O2 Flow Rate FiO2 04/21/20 00:53 98.2 120 12 151/84 (106) 98 Room Air Sp02 EP Interpretation: reviewed, normal General Appearance: no apparent distress, alert, GCS 15, non-toxic Head: normocephalic, atraumatic Eyes: bilateral eye normal inspection, bilateral eye PERRL ENT: hearing grossly normal, normal pharynx, no angioedema, normal voice Neck: full range of motion, supple/symm/no masses Respiratory: chest non-tender, lungs clear, normal breath sounds, speaking full sentences Cardiovascular #1: regular rate, rhythm, no edema Cardiovascular #2: 2+ carotid (R), 2+ carotid (L), 2+ radial (R), 2+ radial (L) , 2+ dorsalis pedis (R), 2+ dorsalis pedis (L) Gastrointestinal: normal bowel sounds, non tender, soft, non-distended, no guarding, no rebound Rectal: deferred Genitourinary: normal inspection, no CVA tenderness Musculoskeletal: back normal, normal range of motion, gait/station normal, non- tender Neurologic: alert, motor strength/tone normal, oriented x3, sensory intact, responsive, speech normal Psychiatric: judgement/insight normal, memory normal, mood/affect normal, no suicidal/homicidal ideation Reflexes: 3+ bicep (R), 3+ bicep (L), 3+ tricep (R), 3+ tricep (L), 3+ knee (R) , 3+ knee (L) Lymphatic: no adenopathy Medical Decision Making Diagnostic Impression: Primary Impression: Methamphetamine abuse Additional Impression: Abdominal pain Qualified Codes: R10.84 - Generalized abdominal pain ER Course Hospital Course 30-year-old male presents with abdominal pain. Clinical course Patient placed on stretcher. After initial history physical exam reveals male in no acute distress. Does appear anxious. Abdomen soft. No guarding or rebound. patient was seen in ED earlier today for similar presentation. Work-up done at that time was unremarkable. I have seen this patient multiple times myself for similar presentations. Has had extensive work-ups including labs and CT. All of which have been negative. I see no reason to repeat work-up at this time. Given GI cocktail in ED. I explained to patient these are likely sequela of his methamphetamine use. Patient allowed to rest in ED. Patient wakes up he states he feels better. Diagnosis - methamphetamine abuse, abdominal pain stable and discharged to home. Followup with PMD. Return to ED if symptoms recur or worsen Last Vital Signs Date Time Temp Pulse Resp B/P (MAP) Pulse Ox O2 Delivery O2 Flow Rate FiO2 04/21/20 05:02 98.2 77 18 130/81 99 Room Air Status: improved Disposition: HOME, SELF-CARE Condition: Stable Scripts Famotidine* (Pepcid 20mg tablet*) 20 Mg Tablet 20 MG ORAL DAILY, #30 TAB 0 Refills Prov: Panda Scott MD 04/21/20 Referrals: [facility] Patient Instructions: Abdominal Pain, Adult Panda Scott MD Apr 22, 2020 07:30
== END 2020-04-21 05:02 | disposition home or self-care (01) ==
LOC: EDBD 00:51 → EMR 01:02
DX: R10.84 Generalized abdominal pain (principal); F15.10 Other stimulant abuse, uncomplicated
CPT/HCPCS: 99283

== ENCOUNTER 2020-04-30 15:27 | Emergency (ER) | payer OTHER ==
[~2020-04-30] VITALS: Ht 167.6 cm; Wt 68.0 kg
--- NOTE | 2020-04-30 16:18 | NUR ---
ED Nurse Note:blood sent to labs and given IV fluids
[2020-04-30 17:01] LABS: BASOPHILS % (AUTO) 1.1 % (0.0-2.0); EOSINOPHILS % (AUTO) 2.1 % (0.0-3.0); HEMATOCRIT 47.9 % (42.0-52.0); MEAN CORPUSCULAR VOLUME 87 FL (80-99); MONOCYTES % (AUTO) 7.3 % (1.0-10.0); NEUTROPHILS % (AUTO) 68.5 % (45.0-75.0); PLATELET COUNT 269 K/UL (150-450); RED BLOOD COUNT 5.48 M/UL (4.70-6.10); RED CELL DISTRIBUTION WIDTH 13.6 % (11.6-14.8); WHITE BLOOD COUNT 8.8 K/UL (4.8-10.8)
[2020-04-30 17:16] LABS: ANION GAP 12 mmol/L (5-15); BLOOD UREA NITROGEN 10 mg/dL (7-18); CALCIUM 9.3 MG/DL (8.5-10.1); CARBON DIOXIDE 28 MMOL/L (21-32); CHLORIDE 103 MMOL/L (98-107); CREATININE 1.1 MG/DL (0.55-1.30); POTASSIUM 3.9 MMOL/L (3.5-5.1); SODIUM 143 MMOL/L (136-145)
[2020-04-30 17:28] LABS: ALANINE AMINOTRANSFERASE 43 U/L (12-78); ALBUMIN 4.5 G/DL (3.4-5.0); ALBUMIN/GLOBULIN RATIO 1.2 (1.0-2.7); ALKALINE PHOSPHATASE 88 U/L (46-116); ASPARTATE AMINO TRANSFERASE 26 U/L (15-37); BILIRUBIN,TOTAL 0.6 MG/DL (0.2-1.0)
[2020-04-30 17:46] VITALS: BP 145/98
[2020-04-30] MEDS ORDERED: IBUPROFEN400 MG ORAL (18:15)
--- NOTE | 2020-04-30 18:15 | Emergency Room Report ---
History of Present Illness General Chief Complaint: Substance Abuse Source: EMS Present Illness HPI 30-year-old male with history of methamphetamine and marijuana abuse who has been here multiple times for feeling like his lymph nodes are swollen brought in by paramedics for the same complaints before. Patient denies any abdominal pain, nausea vomiting fever and reports that he feels like he is being "poison ed". Has not followed with primary doctor. Sitting comfortably with stable vital signs. Appears to be slightly tachycardic most likely secondary to methamphetamine abuse. 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 Patient History Past Medical History: see triage record Past Surgical History: unable to obtain Pertinent Family History: unable to obtain Social History: Reports: drug use - Methamphetamine and marijuana Reviewed Nursing Documentation: PMH: Agreed; PSxH: Agreed Nursing Documentation-PMH History Of Psychiatric Problem: Yes Review of Systems All Other Systems: negative except mentioned in HPI Physical Exam Vital Signs Date Time Temp Pulse Resp B/P (MAP) Pulse Ox O2 Delivery O2 Flow Rate FiO2 04/30/20 15:21 99.7 120 18 145/98 (114) 98 Room Air Sp02 EP Interpretation: reviewed, abnormal - Slightly tachycardic General Appearance: no apparent distress, alert, GCS 15, non-toxic Head: normocephalic, atraumatic Eyes: bilateral eye normal inspection, bilateral eye PERRL ENT: hearing grossly normal, normal pharynx, no angioedema, normal voice Neck: full range of motion, supple/symm/no masses Respiratory: chest non-tender, lungs clear, normal breath sounds, no rhonchi, no respiratory distress, no retraction, speaking full sentences Cardiovascular #1: regular rate, rhythm, no edema, no murmur Gastrointestinal: normal bowel sounds, non tender, soft, non-distended, no guarding, no rebound Rectal: deferred Musculoskeletal: back normal Neurologic: alert, motor strength/tone normal, oriented x3, sensory intact, responsive, speech normal Skin: no rash Lymphatic: no adenopathy Medical Decision Making PA Attestation ALL Diagnosis and treatment plan reviewed and discussed with my supervising physician Dr. Horta Diagnostic Impression: Primary Impression: Lymphedema Additional Impressions: Methamphetamine abuse Marijuana abuse ER Course 30-year-old male with history of methamphetamine and marijuana abuse who has been here multiple times for feeling like his lymph nodes are swollen brought in by paramedics for the same complaints before. Patient denies any abdominal pain, nausea vomiting fever and reports that he feels like he is being "poisoned". Has not followed with primary doctor. Sitting comfortably with stable vital signs. Appears to be slightly tachycardic most likely secondary to methamphetamine abuse. Ddx considered but are not limited to: Lymphedema, pharyngitis, coronavirus, Vital signs: are WNL, pt. is afebrile H&PE are most consistent with: Marijuana abuse, vitamin abuse, lymphedema ORDERS: CBC, CMP, UA, tox screen, Motrin ER intervention: NS bolus resolve patient tachycardia and it was resolved after NS bolus was given DISCHARGE: At this time pt. is stable for d/c to home. Will provide printed patient care instructions, and any necessary prescriptions. Care plan and follow up instructions have been discussed with the patient prior to discharge. Advised patient to follow primary doctor given list of family clinics to go to for outpatient CT neck for soft tissue to rule out mass in neck. Worsening symptoms return to the emergency room Last Vital Signs Date Time Temp Pulse Resp B/P (MAP) Pulse Ox O2 Delivery O2 Flow Rate FiO2 04/30/20 17:46 102 18 Room Air 04/30/20 17:46 99.7 145/98 98 Disposition: HOME, SELF-CARE Condition: Stable Scripts Ibuprofen* (MOTRIN*) 400 Mg Tablet 400 MG ORAL Q8H, #30 TAB 0 Refills Prov: Jose Alfredo Malone 04/30/20 Referrals: [facility],REFERRING (PCP) Patient Instructions: Cannabis Use Disorder, Lymphedema, Stimulant Use Disorder-Methamphetamines Additional Instructions: Take medication as directed, follow with your primary care provider for ultrasound or CT scan of the neck due to lymphadenopathy that you have been feeling. Avoid using methamphetamine and marijuana. If worsening symptoms return to the emergency room Jose Alfredo Malone Apr 30, 2020 18:14
[2020-04-30 18:30] VITALS: BP 145/98
== END 2020-04-30 18:30 | disposition home or self-care (01) ==
LOC: EDBD 15:27 → EMR 17:50
DX: I89.0 Lymphedema, not elsewhere classified (principal); F15.10 Other stimulant abuse, uncomplicated; F12.10 Cannabis abuse, uncomplicated; R00.0 Tachycardia, unspecified
CPT/HCPCS: 36415; 80053; 80307; 84484; 85025; 96360; J7030; Z7502; 99284

== ENCOUNTER 2020-05-18 05:14 | Emergency (ER) | payer OTHER ==
[~2020-05-18] VITALS: Ht 167.6 cm; Wt 83.9 kg
[~2020-05-18 05:14] MED LIST changes: +IBUPROFEN400 MG ORAL
[2020-05-18 05:40] VITALS: BP 135/84
--- NOTE | 2020-05-18 05:42 | NUR ---
Nurse Note: Pt arrived c/o generalized pain for unk time. Pt stated currently the pain is worse in the abd and both arms. Pt stated unk cause, no n/v/d, no trauma to abd. Pt denies abnormal ingestion. Pt able to move all extremities with no major signs of distress. Cap refill less than 2 sec on BUE. hx of meth use. Pt admitted to using meth prior to arrival. Pt is poor historian, mumbles speech, lacks eye contact. All safety measures met, will continue to monitor.
--- NOTE | 2020-05-18 06:06 | Emergency Room Report ---
History of Present Illness General Chief Complaint: Abdominal Pain Source: Patient Present Illness HPI 30-year-old male history of methamphetamine abuse history of smoking alcohol use presents with vague abdominal discomfort, feeling like his throat lim a little started after smoking something in a hotel room patient cannot specify what it was, occurred prior to arrival may have been an aggravating factor no known alleviating factors severity is mild, constant no chest pain or shortness of breath no dyspnea no dysphasia no fevers no chills patient presents for evaluation of this vague abdominal discomfort and throat discomfort Allergies: Coded Allergies: No Known Allergies (Unverified , 07/28/19) COVID-19 Screening Contact w/high risk pt: No Experienced COVID-19 symptoms?: No COVID-19 Testing performed 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 Patient History Past Medical History: see triage record Social History: Reports: smoking, alcohol use, drug use - Marijuana meth Reviewed Nursing Documentation: PMH: Agreed; PSxH: Agreed Nursing Documentation-PMH Past Medical History: No Stated History Review of Systems All Other Systems: negative except mentioned in HPI Physical Exam Vital Signs Date Time Temp Pulse Resp B/P (MAP) Pulse Ox O2 Delivery O2 Flow Rate FiO2 05/18/20 05:23 98.8 100 18 135/84 (101) 96 Room Air Sp02 EP Interpretation: reviewed, normal General Appearance: well appearing, no apparent distress, alert Head: normocephalic, atraumatic Eyes: bilateral eye PERRL, bilateral eye EOMI ENT: uvula midline, moist mucus membranes Neck: supple, thyroid normal, supple/symm/no masses Respiratory: lungs clear, no respiratory distress, no retraction, no accessory muscle use Cardiovascular #1: normal peripheral pulses, regular rate, rhythm, no edema, no gallop, no murmur Gastrointestinal: non tender, soft, no guarding, no rebound Musculoskeletal: normal inspection Neurologic: alert, oriented x3 Psychiatric: mood/affect normal Skin: no rash, warm/dry Medical Decision Making Diagnostic Impression: Primary Impression: Methamphetamine use ER Course 30-year-old male presents with vague symptoms, differential includes esophagitis , methamphetamine abuse, pneumomediastinum Chest x-ray negative, labs unremarkable, U tox positive Patient observed in the ED without incident Patient tolerated p.o. Disposition home with return precautions, patient given drug counseling, referral to outpatient toxicology resources follow-up with PCP Laboratory Tests Test 05/18/20 05:55 White Blood Count 8.5 K/UL (4.8-10.8) Red Blood Count 5.34 M/UL (4.70-6.10) Hemoglobin 15.4 G/DL (14.2-18.0) Hematocrit 44.7 % (42.0-52.0) Mean Corpuscular Volume 84 FL (80-99) Mean Corpuscular Hemoglobin 28.9 PG (27.0-31.0) Mean Corpuscular Hemoglobin Concent 34.4 G/DL (32.0-36.0) Red Cell Distribution Width 12.5 % (11.6-14.8) Platelet Count 256 K/UL (150-450) Mean Platelet Volume 6.6 FL (6.5-10.1) Neutrophils (%) (Auto) 63.6 % (45.0-75.0) Lymphocytes (%) (Auto) 21.8 % (20.0-45.0) Monocytes (%) (Auto) 8.7 % (1.0-10.0) Eosinophils (%) (Auto) 4.0 % (0.0-3.0) H Basophils (%) (Auto) 1.8 % (0.0-2.0) Urine Color Yellow Urine Appearance Clear Urine pH 5.0 (4.5-8.0) Urine Specific [place] 1.025 (1.005-1.035) Urine Protein 1+ (NEGATIVE) H Urine Glucose (UA) Negative (NEGATIVE) Urine Ketones Negative (NEGATIVE) Urine Blood 1+ (NEGATIVE) H Urine Nitrite Negative (NEGATIVE) Urine Bilirubin Negative (NEGATIVE) Urine Urobilinogen Normal MG/DL (0.0-1.0) Urine Leukocyte Esterase Negative (NEGATIVE) Urine RBC 0-2 /HPF (0 - 0) H Urine WBC 0 /HPF (0 - 0) Urine Squamous Epithelial Cells None /LPF (NONE/OCC) Urine Bacteria None /HPF (NONE) Sodium Level 140 MMOL/L (136-145) Potassium Level 3.6 MMOL/L (3.5-5.1) Chloride Level 105 MMOL/L (98-107) Carbon Dioxide Level 26 MMOL/L (21-32) Anion Gap 9 mmol/L (5-15) Blood Urea Nitrogen 15 mg/dL (7-18) Creatinine 1.2 MG/DL (0.55-1.30) Estimated Glomerular Filtration Rate > 60 mL/min (>60) Glucose Level 111 MG/DL (74-106) H Calcium Level 8.7 MG/DL (8.5-10.1) Total Bilirubin 0.4 MG/DL (0.2-1.0) Aspartate Amino Transferase (AST) 28 U/L (15-37) Alanine Aminotransferase (ALT) 41 U/L (12-78) Alkaline Phosphatase 92 U/L (46-116) Troponin I 0.000 ng/mL (0.000-0.056) Total Protein 7.6 G/DL (6.4-8.2) Albumin 3.9 G/DL (3.4-5.0) Globulin 3.7 g/dL Albumin/Globulin Ratio 1.1 (1.0-2.7) Lipase 111 U/L (73-393) Urine Opiates Screen Negative (NEGATIVE) Urine Barbiturates Screen Negative (NEGATIVE) Phencyclidine (PCP) Screen Negative (NEGATIVE) Urine Amphetamines Screen Positive (NEGATIVE) H Urine Benzodiazepines Screen Negative (NEGATIVE) Urine Cocaine Screen Negative (NEGATIVE) Urine Marijuana (THC) Screen Positive (NEGATIVE) H EKG Diagnostic Results Troponin ordered: Yes When was troponin ordered?: May 18, 2020 - 600 EKG Time: 06:10 EP Interpretation: NSR, rate 88, QTc 45, no acute elevations, normal axis Rhythm Strip Diag. Results Rhythm Strip Time: 06:15 EP Interpretation: yes Rate: 87 Rhythm: NSR, no PVC's, no ectopy Chest X-Ray Diagnostic Results Chest X-Ray Diagnostic Results : Chest X-Ray Ordered: Yes # of Views/Limited/Complete: 1 View Indication: Chest Pain EP Interpretation: Yes Interpretation: no consolidation, no effusion, no pneumothorax, no acute cardiopulmonary disease Impression: No acute disease Electronically Signed by: Tomas Corcoran MD Last Vital Signs Date Time Temp Pulse Resp B/P (MAP) Pulse Ox O2 Delivery O2 Flow Rate FiO2 05/18/20 05:40 98.8 100 18 135/84 96 Room Air Disposition: HOME, SELF-CARE Condition: Stable Scripts No Active Prescriptions or Reported Meds Referrals: [facility],REFERRING (PCP) [facility] Rory Barber [facility] Patient Instructions: Stimulant Use Disorder-Methamphetamines Additional Instructions: The patient was provided with discharge instructions, notified to follow-up with a primary care doctor and or specialist in the next 24-48 hours, and to return to the ED if they have worsening of their symptoms. Please note that this report is being documented using [employer] technology. This can lead to erroneous entry secondary to incorrect interpretation by the dictating instrument. Tomas Corcoran MD May 18, 2020 06:06
[2020-05-18 06:18] LABS: BASOPHILS % (AUTO) 1.8 % (0.0-2.0); HEMATOCRIT 44.7 % (42.0-52.0); HEMOGLOBIN 15.4 G/DL (14.2-18.0); LYMPHOCYTES % (AUTO) 21.8 % (20.0-45.0); MEAN CORPUSCULAR VOLUME 84 FL (80-99); MONOCYTES % (AUTO) 8.7 % (1.0-10.0); NEUTROPHILS % (AUTO) 63.6 % (45.0-75.0); PLATELET COUNT 256 K/UL (150-450); RED BLOOD COUNT 5.34 M/UL (4.70-6.10); RED CELL DISTRIBUTION WIDTH 12.5 % (11.6-14.8); WHITE BLOOD COUNT 8.5 K/UL (4.8-10.8)
--- NOTE | 2020-05-18 06:18 | NUR ---
Nurse Note: All orders completed per ERMD orders. Vital signs stable on awake overnight monitor. Pt given 237mL of water, pt tolerated well, no n/v, no drooling. Pt resting, calm, cooperative. All safety measures met; will continue to montior
[2020-05-18 06:24] LABS: APPEARANCE,URINE CLEAR; COLOR,URINE YELLOW; KETONES,URINE NEGATIVE (NEGATIVE); PROTEIN,URINE 1+ (NEGATIVE)
[2020-05-18 06:25] LABS: BILIRUBIN, URINE NEGATIVE (NEGATIVE); GLUCOSE, URINE (UA) NEGATIVE (NEGATIVE); LEUKOCYTE ESTERASE ,URINE NEGATIVE (NEGATIVE); NITRITE,URINE NEGATIVE (NEGATIVE); UROBILINOGEN,URINE NORMAL MG/DL (0.0-1.0)
[2020-05-18 06:29] LABS: ANION GAP 9 mmol/L (5-15); BLOOD UREA NITROGEN 15 mg/dL (7-18); CALCIUM 8.7 MG/DL (8.5-10.1); CARBON DIOXIDE 26 MMOL/L (21-32); CHLORIDE 105 MMOL/L (98-107); CREATININE 1.2 MG/DL (0.55-1.30); POTASSIUM 3.6 MMOL/L (3.5-5.1); SODIUM 140 MMOL/L (136-145)
[2020-05-18 06:30] LABS: ALANINE AMINOTRANSFERASE 41 U/L (12-78); ALBUMIN 3.9 G/DL (3.4-5.0); ALBUMIN/GLOBULIN RATIO 1.1 (1.0-2.7); ALKALINE PHOSPHATASE 92 U/L (46-116); ASPARTATE AMINO TRANSFERASE 28 U/L (15-37); BILIRUBIN,TOTAL 0.4 MG/DL (0.2-1.0)
[2020-05-18 07:00] VITALS: BP 124/78
--- NOTE | 2020-05-18 07:00 | NUR ---
ER DISCHARGE NOTE: Patient is cleared to be discharged per ERMD. Pt is aox4, on room air, with stable vital signs. Pt was given dc instructions. Pt was able to verbalize understanding; instructed pt to follow up with primary care physican within one week. Provided pt with resources for further treatment. Pt id band and iv site removed without complications; site clean and bandaged. Pt is able to ambulate with steady gait. Pt took all belongings.
--- NOTE | 2020-05-18 16:19 | Cardiology Report ---
APPROVED REPORT EKG Measurement Heart [id number] <Conclusion> Normal sinus rhythm Normal ECG
--- NOTE | 2020-05-18 17:04 | Diagnostic Imaging Report ---
Indication: Chest pain Technique: One view of the chest Comparison: 04/20/2020 Findings: Lungs and pleural spaces are clear. Heart size is normal. No significant change Impression: No acute process
[2020-05-23] MEDS ORDERED: OMEPRAZOLE20 M2 ORAL ×2 (04:48)
== END 2020-05-18 07:00 | disposition home or self-care (01) ==
LOC: EMR 05:40
DX: F15.90 Other stimulant use, unspecified, uncomplicated (principal); F17.200 Nicotine dependence, unspecified, uncomplicated; R07.9 Chest pain, unspecified
CPT/HCPCS: 36415; 71045; 80053; 80307; 81003; 83690; 84484; 85025; 93005; Z7502; 99284

== ENCOUNTER 2020-05-22 10:33 | Emergency (ER) | payer OTHER ==
[~2020-05-22] VITALS: Ht 167.6 cm; Wt 83.9 kg
--- NOTE | 2020-05-22 10:28 | Emergency Room Report ---
History of Present Illness General Source: Patient Present Illness HPI 30-year-old male with history of dextrocardia, polysubstance abuse, psych brought in by ambulance secondary to generalized body pains x 3 days. 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 Also endorses diffuse myalgias, fatigue, and decreased appetite. Has (+) sick contacts where he is staying. Denies hemoptysis, fevers, SOLIS, neck pain/rigidity, photophobia, dysuria, hematuria, penile/testicular pain, abdominal pain, back pain, rash., recent travel. The patient's symptoms were gradual onset, severity was moderate, duration since 3 days. Quality: generally weak Past medical history: dextrocardia Past surgical history: appendectomy Smoking: ++ Alcohol use: ++ Drug use: ++ smoked meth 2 days ago. No IVDU Review of systems: CONST: No fevers ++ chills, No night sweats PULMONARY: ++ productive cough, ++ shortness of breath CARDIAC: No chest pain, No palpitations GI: ++ post-tussive vomiting, No diarrhea , No melena_or_BRBPR : No dysuria, No hematuria, No discharge NEURO: No new_focal_weakness_or_numbness, No confusion, No vision changes 14 point Review of Systems is otherwise negative except per HPI Physical Exam: GENERAL: Awake_alert_ nontoxic, no acute distress Spo2 97% on RA -normal EYES: Extraocular muscles are intact. Conjunctivae clear. Lids without swelling ENT: External nose and ear normal_in_appearance. Oropharynx clear. Head_atraumatic, Moist_oral_mucosa NECK: No JVD. No meningismus. No thyromegaly. Supple. Trachea midline. No nuchal rigidity. RESP: Normal respiratory effort. Symmetric rise. No stridor. Clear_to_auscultation_No_rales_No_wheezes CARDIAC: Tachy. and regular rhytm. No_significant pedal edema. ABDOMEN: Soft. Nondistended. Nontender_No_rebound_or_guarding. Negative Rivas's sign. Negative Rovsing's. Negative obturator. No CVA tenderness to palpation. MSK: Normal muscle tone, without rigidity. Extremities without asymmetric deformity or swelling. SKIN: Warm and dry. No visible cyanosis or pallor. No petechiae. NEUROLOGIC: Alert, oriented x3. Motor_and_sensation_grossly_intact. No truncal ataxia. Gait_normal Psych: Normal mood and affect, normal judgment and insight - COORDINATION OF CARE Case was discussed with: Patient Any labs and imaging that were ordered were interpreted as part of the medical decision making: Medical Decision Making/Plan: DDx: includes COVID-19 / coronavirus infection, URI, bronchitis, viral syndrome, postnasal drip, versus less likely pneumonia, among others. The patient is nontoxic and well-appearing and has no significant shortness of breath or fever . The patient exhibits no evidence of respiratory distress. Chest x-ray revealed shows haziness of RLL in comparison to prevous xray but no lobar pneumonia. Otherwise stable dextrocardia and old R clavicle fx. COVID swab was negative. No evidence of ENT emergency, airway patent, tolerating oral liquids and solids. No stridor or difficulty breathing. Tonsils within normal limits, no evidence of swelling, exudate or strep pharyngitis. No indication for empiric antibiotic treatment. Sublingual space soft. The patient was instructed to follow up with their physician and instructed to return if worsens, progressively worsening shortness of breath or difficulty breathing, persistent fever, chest pains or discomfort, inability to keep medication or fluids down with or without vomiting, or any other new, worsening or concerning symptoms Patient was nontoxic with benign vital signs. Patient did not meet admission criteria and was stable for outpatient therapy. Appropriate precautions were given. Strict return precautions given, including but limited to: Patient educated to notify a healthcare professional if they develop further symptoms that include chest pain, palpitations, significant SOB, fever, or other concerning symptoms. Discussed supportive care with rest, hydration, frequent handwashing and Tylenol and Motrin [id number] as needed for pain or fevers. Discussed strict return precautions. Patient is instructed to follow up with their primary care provider in 1-2 days, or return to the ED for worsening symptoms. Return to ED precautions were given. Instructed patient to stop doing meth and marijuana. 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 All needs were met during this ED visit including food and water, change of clothes, halfway referral/resources, and transportation. Allergies: Coded Allergies: No Known Allergies (Unverified , 07/28/19) Physical Exam Sp02 EP Interpretation: reviewed, normal Medical Decision Making Diagnostic Impression: Primary Impression: Cough Additional Impressions: URI (upper respiratory infection) Dextrocardia Right clavicle fracture Polysubstance abuse Chest X-Ray Diagnostic Results Chest X-Ray Diagnostic Results : ANDREW Leslie Text Chest X-Ray: Views: 1 view(s) Indication: cough Findings: Normal heart size. Mediastinum normal. RLL infiltrate. Dextrocardia, left sided aortic arch. normal situs. Old R clavicle fracture Impression: No infiltrate The X-ray(s) were independently viewed and interpreted contemporaneously Electronically signed by Tanya clark DO Disposition: HOME, SELF-CARE Admit Decision Time: 12:00 Condition: Stable Scripts Guaifenesin/D-Methorphan Hb/Pe (ROBITUSSIN COUGH-COLD CF LIQ*) 118 Ml Liquid 5 ML ORAL Q6H PRN for FOR COUGH, #118 ML Prov: Tanya Alcantar D.O. 05/22/20 Azithromycin* (ZITHROMAX*) 250 Mg Tablet 250 MG ORAL DAILY, #6 TAB 0 Refills Take two tables once daily for 1 day, then one tablet once daily for 4 days. Prov: Tanya Alcantar D.O. 05/22/20 Albuterol Sulfate* (ALBUTEROL SULFATE HHN*) 2.5 Mg/3 Ml Vial.neb 2.5 MG HHN Q4H PRN for Shortness of Breath, #25 VIAL Prov: Tanya Alcantar D.O. 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 Follow-up with your doctor sooner if your condition requires a more timely clinical reevaluation. Return to the emergency department immediately if you feel that your condition is worsening or if you have any new or concerning symptoms. Review your discharge instructions and take any prescriptions given as instructed. [facility] PROVIDES FREE OR LOW-COST HEALTH SERVICES TO PEOPLE WHO CAN SHOW PROOF THAT THEY LIVE IN [facility]. TO FIND MORE CLINICS PARTNERED WITH [facility] TO PROVIDE SERVICE, PLEASE CALL . Tanya Alcantar D.O. May 22, 2020 10:28
--- NOTE | 2020-05-22 10:33 | NUR ---
ED Nurse Note: Brought by RA 60 from a hotel due to generalized pain. Pt states he smoked marijuna for a week striaght. A/Ox4. Breathing normal/even/unlabored. Skin warm/dry. NAD noted. Denies SI/HI.
[2020-05-22 10:34] VITALS: BP 140/90
[2020-05-22] MEDS ORDERED: guaiFENesin /DM 10ml syrup ORAL ONE (10:45)
[2020-05-22] MEDS ORDERED: ZITHROMAX250 MG ORAL (10:47)
[2020-05-22] MEDS ORDERED: ALBUTEROL2.5 MG/3 M HHN (10:47)
[2020-05-22] MEDS ORDERED: ROBITUSSIN COU118 M1 ORAL (10:48)
[2020-05-22 11:45] VITALS: BP 137/86
--- NOTE | 2020-05-22 11:45 | NUR ---
ER DISCHARGE NOTE: Patient is cleared to be discharged per ERMD, pt is aox4, on room air, with stable vital signs. pt was given dc and prescription instructions, pt was able to verbalize understanding, pt id band removed without complications. pt is able to ambulate with steady gait. pt took all belongings.
--- NOTE | 2020-05-22 13:37 | Diagnostic Imaging Report ---
Indication: Cough Technique: One view of the chest Comparison: 05/18/2020 Findings: Lungs and pleural spaces are clear. Heart size is normal. No significant change Impression: No acute process
[2020-05-22] MEDS ORDERED: ZOFRAN4 M1 ORAL (15:38)
[2020-05-22] MEDS ORDERED: DICYCLOMINE HCL10 MG ORAL (15:38)
[2020-05-22] MEDS ORDERED: FAMOTIDINE20 MG ORAL (15:38)
[2020-05-23] MEDS ORDERED: OMEPRAZOLE20 M2 ORAL (04:48)
== END 2020-05-22 11:45 | disposition home or self-care (01) ==
LOC: EDBD 10:33 → EMR 10:55
DX: J06.9 Acute upper respiratory infection, unspecified (principal); Q24.0 Dextrocardia; S42.001D Fracture of unspecified part of right clavicle, subsequent encounter for fracture with routine healing; X58.XXXD Exposure to other specified factors, subsequent encounter; F19.10 Other psychoactive substance abuse, uncomplicated; Z90.89 Acquired absence of other organs
CPT/HCPCS: 71045; U0002; Z7502; 99283

== ENCOUNTER 2020-05-22 15:00 | Emergency (ER) | payer OTHER ==
[~2020-05-22] VITALS: Ht 167.6 cm; Wt 83.9 kg
[~2020-05-22 15:00] MED LIST changes: +ALBUTEROL2.5 MG/3 M HHN; +ROBITUSSIN COU118 M1 ORAL; +ZITHROMAX250 MG ORAL
--- NOTE | 2020-05-22 15:12 | NUR ---
ED Nurse Note: pt presents to ED c/o abd pain for 2days. pt was seen and d/c here earlier today for URI. pt denies any N/V/D at this time Addendum: 05/22/20 at 1515 by QLE pt describes "bloating" pain in abd
[2020-05-22 15:13] VITALS: BP 135/86
[2020-05-22] MEDS ORDERED: Dicyclomine HCl 10mg/5ml oral soln ORAL ONE (15:30)
--- NOTE | 2020-05-22 15:34 | Emergency Room Report ---
History of Present Illness General Chief Complaint: Abdominal Pain Source: Patient Present Illness HPI 30-year-old male with history of methamphetamine abuse who has been here multiple times with the last visit earlier today. Complaining of feeling bloated all over and saying that" he feels he was poisoned." Denies any chest pain or shortness of breath at this time. Denies any nausea, diarrhea, constipation. Patient had full work-up done at [facility] not too long ago and all within normal limits. Patient has been diagnosed with gastritis in the past and reports that his symptoms today started after he had a large burger which was spicy. Denies any alcohol intake and methamphetamine use. None asked if he has used any amphetamine marijuana in the past he denied. Sitting comfortably with stable vital signs. Denies all other complaints. Allergies: Coded Allergies: No Known Allergies (Unverified , 07/28/19) COVID-19 Screening Contact w/high risk pt: No Experienced COVID-19 symptoms?: No COVID-19 Testing performed HOSPITAL PHARMACY DIRECTOR: Yes COVID-19 Screening: Negative COVID-19 COVID-19 Testing Source: 05/22/20 Patient History Past Medical History: see triage record Past Surgical History: none Pertinent Family History: none Reviewed Nursing Documentation: PMH: Agreed; PSxH: Agreed Nursing Documentation-PMH Past Medical History: No Stated History Review of Systems All Other Systems: negative except mentioned in HPI Physical Exam Vital Signs Date Time Temp Pulse Resp B/P (MAP) Pulse Ox O2 Delivery O2 Flow Rate FiO2 05/22/20 15:05 98.6 110 15 135/86 (102) 95 Room Air Sp02 EP Interpretation: reviewed, normal General Appearance: no apparent distress, alert, GCS 15, non-toxic Head: normocephalic, atraumatic Eyes: bilateral eye normal inspection, bilateral eye PERRL ENT: normal ENT inspection Neck: full range of motion, supple/symm/no masses Respiratory: chest non-tender, lungs clear, normal breath sounds, speaking full sentences Cardiovascular #1: regular rate, rhythm, no edema Gastrointestinal: non tender, soft, no mass, no organomegaly, no peritonitis, no bruit Rectal: deferred Musculoskeletal: back normal Neurologic: alert, motor strength/tone normal, oriented x3, sensory intact, responsive, speech normal Psychiatric: judgement/insight normal, memory normal, mood/affect normal, no suicidal/homicidal ideation Skin: no rash Lymphatic: no adenopathy Medical Decision Making PA Attestation All my diagnosis and treatment plans were reviewed ad discussed with my supervising physician Dr. Mendenhall Diagnostic Impression: Primary Impression: Gastritis ER Course 30-year-old male with history of methamphetamine abuse who has been here multiple times with the last visit earlier today. Complaining of feeling bloated all over and saying that" he feels he was poisoned." Denies any chest pain or shortness of breath at this time. Denies any nausea, diarrhea, constipation. Patient had full work-up done at [facility] not too long ago and all within normal limits. Patient has been diagnosed with gastritis in the past and reports that his symptoms today started after he had a large burger which was spicy. Denies any alcohol intake and methamphetamine use. None asked if he has used any amphetamine marijuana in the past he denied. Sitting comfortably with stable vital signs. Denies all other complaints. Ddx considered but are not limited to: appendicitis, cholecystis, gastritis, gastroenteritis, UTI, pyelonephritis, SBO, gastritis Vital signs: are WNL, pt. is afebrile H&PE are most consistent with: Gastritis ORDERS: No further work-up needed patient had a recent one only PERRL within normal limits. Pepcid, Zofran, dicyclomine ED INTERVENTIONS: Pepcid, Zofran, dicyclomine DISCHARGE: At this time pt. is stable for d/c to home. Will provide printed patient care instructions, and any necessary prescriptions. Care plan and follow up instructions have been discussed with the patient prior to discharge. Reported patient to follow-up primary doctor, also using amphetamine, I also told patient we did not do any testing for different cranial poison and patient need to follow-up primary doctor, and also contact the police if he has high suspicion of being poisoned. If worsening symptoms return to the emergency room. Last Vital Signs Date Time Temp Pulse Resp B/P (MAP) Pulse Ox O2 Delivery O2 Flow Rate FiO2 05/22/20 15:13 98.6 99 15 135/86 95 Room Air Disposition: HOME, SELF-CARE Condition: Stable Scripts Ondansetron (Zofran) 4 Mg Tablet 4 MG ORAL Q6H PRN for Nausea & Vomiting, #14 TAB Prov: Jose Alfredo Malone 05/22/20 Dicyclomine Hcl* (DICYCLOMINE HCL*) 10 Mg Capsule 10 MG ORAL TID, #10 CAP Prov: Jose Alfredo Malone 05/22/20 Famotidine* (Pepcid 20mg tablet*) 20 Mg Tablet 20 MG ORAL DAILY for Gerd, #30 TAB 0 Refills Prov: Jose Alfredo Malone 05/22/20 Referrals: [facility],REFERRING (PCP) Patient Instructions: Abdominal Pain, Adult Additional Instructions: Avoid amphetamine use and marijuana use, take medication as directed, but eating greasy and spicy food, worsening symptoms return to the emergency room Jose Alfredo Malone May 22, 2020 15:34
[2020-05-22] MEDS ORDERED: FAMOTIDINE20 MG ORAL (15:38)
[2020-05-22] MEDS ORDERED: ZOFRAN4 M1 ORAL (15:38)
[2020-05-22] MEDS ORDERED: DICYCLOMINE HCL10 MG ORAL (15:38)
[2020-05-22 15:45] VITALS: BP 135/86
[2020-05-23] MEDS ORDERED: OMEPRAZOLE20 M2 ORAL (04:48)
== END 2020-05-22 15:45 | disposition home or self-care (01) ==
LOC: EMR 15:24
DX: K29.70 Gastritis, unspecified, without bleeding (principal)
CPT/HCPCS: 99282

== ENCOUNTER 2020-05-23 01:54 | Emergency (ER) | payer OTHER ==
[~2020-05-23] VITALS: Ht 167.6 cm; Wt 83.9 kg
[~2020-05-23 01:54] MED LIST changes: +ZOFRAN4 M1 ORAL
[2020-05-23] MEDS ORDERED: LORazepam Inj 2mg/ml 1ml IV ONE (02:15)
--- NOTE | 2020-05-23 02:15 | NUR ---
ED Nurse Note: Recieved pt from home, here with c/o chest pain at 8/10 for past 30 minutes, pt states iots usually from drug use but he has not had drugs in 2 hours, pt is awake, alert and oriented x 4, ambulatory, denies fevers, cough or any other complaints, pt gowned and placed on monitoring, IV line and labs done, will continue to closely monitor.
[2020-05-23 02:32] LABS: BASOPHILS % (AUTO) 1.1 % (0.0-2.0); EOSINOPHILS % (AUTO) 4.7 % (0.0-3.0); HEMATOCRIT 44.5 % (42.0-52.0); HEMOGLOBIN 15.6 G/DL (14.2-18.0); LYMPHOCYTES % (AUTO) 22.1 % (20.0-45.0); MEAN CORPUSCULAR VOLUME 83 FL (80-99); MONOCYTES % (AUTO) 10.5 % (1.0-10.0); NEUTROPHILS % (AUTO) 61.6 % (45.0-75.0); PLATELET COUNT 259 K/UL (150-450); RED BLOOD COUNT 5.39 M/UL (4.70-6.10); RED CELL DISTRIBUTION WIDTH 12.1 % (11.6-14.8); WHITE BLOOD COUNT 6.3 K/UL (4.8-10.8)
[2020-05-23 02:43] LABS: ANION GAP 8 mmol/L (5-15); BLOOD UREA NITROGEN 12 mg/dL (7-18); CALCIUM 8.7 MG/DL (8.5-10.1); CARBON DIOXIDE 26 MMOL/L (21-32); CHLORIDE 103 MMOL/L (98-107); CREATININE 1.3 MG/DL (0.55-1.30); POTASSIUM 3.9 MMOL/L (3.5-5.1); SODIUM 137 MMOL/L (136-145)
[2020-05-23 02:45] VITALS: BP 121/78
[2020-05-23 02:54] LABS: ALANINE AMINOTRANSFERASE 37 U/L (12-78); ALBUMIN 3.8 G/DL (3.4-5.0); ALBUMIN/GLOBULIN RATIO 1.2 (1.0-2.7); ALKALINE PHOSPHATASE 108 U/L (46-116); ASPARTATE AMINO TRANSFERASE 26 U/L (15-37); BILIRUBIN,TOTAL 0.3 MG/DL (0.2-1.0)
[2020-05-23 04:00] VITALS: BP 126/66
--- NOTE | 2020-05-23 04:00 | NUR ---
ED Nurse Note: Pt in bed sleeping, meds given effective, v/s stable, IV site patent, nad or changes noted, will continue to closely monitor.
--- NOTE | 2020-05-23 04:08 | Emergency Room Report ---
History of Present Illness General Chief Complaint: Chest Pain Source: Patient, Medical Record Present Illness HPI Patient is a 30-year-old male presents for increased generalized abdominal discomfort. Prior history of recent visits and had previous history of dextrocardia. He had recently been started on medications for abdominal discomfort. Patient had recent been prescribed medications for infection. Had been given prescription for cough medications. Allergies: Coded Allergies: No Known Allergies (Unverified , 07/28/19) COVID-19 Screening Contact w/high risk pt: No Experienced COVID-19 symptoms?: No COVID-19 Testing performed BASE MANAGER: Yes COVID-19 Screening: Negative COVID-19 COVID-19 Testing Source: nasal Patient History Past Medical History: see triage record Reviewed Nursing Documentation: PMH: Agreed; PSxH: Agreed Review of Systems All Other Systems: negative except mentioned in HPI Physical Exam Vital Signs Date Time Temp Pulse Resp B/P (MAP) Pulse Ox O2 Delivery O2 Flow Rate FiO2 05/23/20 01:56 97.5 110 16 140/81 (100) 98 Room Air Sp02 EP Interpretation: reviewed, normal General Appearance: normal inspection, well appearing, no apparent distress, alert, GCS 15, non-toxic Head: normocephalic, atraumatic ENT: normal ENT inspection, hearing grossly normal, normal voice Neck: normal inspection, full range of motion, supple, no bony tend Respiratory: normal inspection, lungs clear, normal breath sounds, no respiratory distress, no retraction, no wheezing Cardiovascular #1: regular rate, rhythm, no edema Gastrointestinal: normal inspection, normal bowel sounds, non tender, soft, no guarding, no hernia Genitourinary: no CVA tenderness Musculoskeletal: normal inspection, back normal, normal range of motion Neurologic: alert, motor strength/tone normal, plastics process hand III-XII nml as tested, o riented x3, responsive, speech normal, normal inspection Psychiatric: normal inspection, judgement/insight normal, mood/affect normal Medical Decision Making Diagnostic Impression: Primary Impression: Gastritis Additional Impressions: Dextrocardia Methamphetamine abuse ER Course Patient presented for chest pain. Differential diagnosis included but was not limited to acute coronary syndrome, pulmonary embolism, pneumonia, aortic dissection, shingles, pneumothorax, aortic dissection, esophageal rupture, pe ricarditis. EKG showed normal sinus rhythm without acute ST or T wave changes. CXR showed dextrocardia without evident infiltrate Patient appears to have chest pain which is related to recent substance use. Patient was advised to follow-up with his primary care physician for recheck. Advised to discontinue use of methamphetamine. He was advised to return if he felt worse. This medical record is generated with [employer] compensation consultant software. There may be some compensation consultant discrepancies related to use of this software Labs Test 05/23/20 02:20 White Blood Count 6.3 K/UL (4.8-10.8) Red Blood Count 5.39 M/UL (4.70-6.10) Hemoglobin 15.6 G/DL (14.2-18.0) Hematocrit 44.5 % (42.0-52.0) Mean Corpuscular Volume 83 FL (80-99) Mean Corpuscular Hemoglobin 29.0 PG (27.0-31.0) Mean Corpuscular Hemoglobin Concent 35.1 G/DL (32.0-36.0) Red Cell Distribution Width 12.1 % (11.6-14.8) Platelet Count 259 K/UL (150-450) Mean Platelet Volume 7.0 FL (6.5-10.1) Neutrophils (%) (Auto) 61.6 % (45.0-75.0) Lymphocytes (%) (Auto) 22.1 % (20.0-45.0) Monocytes (%) (Auto) 10.5 % (1.0-10.0) Eosinophils (%) (Auto) 4.7 % (0.0-3.0) Basophils (%) (Auto) 1.1 % (0.0-2.0) D-Dimer < 0.19 mg/L FEU Sodium Level 137 MMOL/L (136-145) Potassium Level 3.9 MMOL/L (3.5-5.1) Chloride Level 103 MMOL/L (98-107) Carbon Dioxide Level 26 MMOL/L (21-32) Anion Gap 8 mmol/L (5-15) Blood Urea Nitrogen 12 mg/dL (7-18) Creatinine 1.3 MG/DL (0.55-1.30) Estimat Glomerular Filtration Rate > 60 mL/min (>60) Glucose Level 128 MG/DL (74-106) Calcium Level 8.7 MG/DL (8.5-10.1) Total Bilirubin 0.3 MG/DL (0.2-1.0) Aspartate Amino Transf (AST/SGOT) 26 U/L (15-37) Alanine Aminotransferase (ALT/SGPT) 37 U/L (12-78) Alkaline Phosphatase 108 U/L (46-116) Troponin I 0.000 ng/mL (0.000-0.056) C-Reactive Protein, Quantitative 1.1 mg/dL (0.00-0.90) Pro-B-Type Natriuretic Peptide 8 pg/mL (0-125) Total Protein 6.9 G/DL (6.4-8.2) Albumin 3.8 G/DL (3.4-5.0) Globulin 3.1 g/dL Albumin/Globulin Ratio 1.2 (1.0-2.7) EKG Diagnostic Results Rate: normal Rhythm: NSR ST Segments: no acute changes Last Vital Signs Date Time Temp Pulse Resp B/P (MAP) Pulse Ox O2 Delivery O2 Flow Rate FiO2 05/23/20 03:11 97 16 121/78 98 05/23/20 02:45 98.4 Room Air Status: improved Disposition: HOME, SELF-CARE Condition: Stable Scripts Omeprazole (OMEPRAZOLE) 20 Mg Capsule. 20 MG ORAL DAILY for Gerd, #30 CAP Prov: Juni May MD 05/23/20 Referrals: [facility],REFERRING (PCP) Juni May MD May 23, 2020 04:08
[2020-05-23] MEDS ORDERED: OMEPRAZOLE20 M2 ORAL (04:48)
[2020-05-23 05:45] VITALS: BP 119/71
[2020-05-23 05:55] VITALS: BP 119/71
--- NOTE | 2020-05-23 14:52 | Diagnostic Imaging Report ---
Indication: Reason For Exam: SOB Technique: One view of the chest Comparison: 05/22/2020 Findings: Again demonstrated is dextrocardia with left-sided aortic arch. And pleural spaces remain clear. No significant change. Impression: No acute process
--- NOTE | 2020-05-25 16:49 | Cardiology Report ---
APPROVED REPORT EKG Measurement Heart [id number] [id number] <Conclusion> Normal sinus rhythm Left posterior fascicular block Abnormal ECG
== END 2020-05-23 05:55 | disposition home or self-care (01) ==
LOC: EMR 02:10
DX: K29.70 Gastritis, unspecified, without bleeding (principal); Q24.0 Dextrocardia; F15.10 Other stimulant abuse, uncomplicated
CPT/HCPCS: 36415; 71045; 80053; 83880; 84484; 85025; 85379; 86140; 93005; 96374; Z7502; 99284

== ENCOUNTER 2020-05-27 23:52 | Emergency (ER) | payer OTHER ==
[~2020-05-27] VITALS: Ht 167.6 cm; Wt 83.9 kg
[~2020-05-27 23:52] MED LIST changes: +OMEPRAZOLE20 M2 ORAL
[2020-05-28 00:10] VITALS: BP 115/75
[2020-05-28] MEDS ORDERED: LORazepam Inj 2mg/ml 1ml IV ONE (00:15)
--- NOTE | 2020-05-28 00:33 | Diagnostic Imaging Report ---
EXAM: XR Chest, 1 View CLINICAL HISTORY: CP TECHNIQUE: Frontal view of the chest. COMPARISON: 05/23/2020. FINDINGS: Lungs: No consolidative changes. Pleural space: No pleural effusions. No pneumothorax. Heart: Unremarkable. No cardiomegaly. Mediastinum: Unremarkable. Bones/joints: Unremarkable. Vasculature: Dextrocardia is again noted with a left-sided aortic arch, unchanged. Other findings: Aeration has improved since the previous study. IMPRESSION: 1. Aeration has improved since the previous study. 2. Dextrocardia. 3. No active disease.
[2020-05-28 00:37] LABS: BASOPHILS % (AUTO) 1.1 % (0.0-2.0); EOSINOPHILS % (AUTO) 2.7 % (0.0-3.0); HEMATOCRIT 45.6 % (42.0-52.0); HEMOGLOBIN 16.6 G/DL (14.2-18.0); LYMPHOCYTES % (AUTO) 16.9 % (20.0-45.0); MEAN CORPUSCULAR VOLUME 82 FL (80-99); MONOCYTES % (AUTO) 8.8 % (1.0-10.0); NEUTROPHILS % (AUTO) 70.6 % (45.0-75.0); PLATELET COUNT 265 K/UL (150-450); RED BLOOD COUNT 5.56 M/UL (4.70-6.10); RED CELL DISTRIBUTION WIDTH 12.1 % (11.6-14.8); WHITE BLOOD COUNT 8.9 K/UL (4.8-10.8)
[2020-05-28 00:40] LABS: ANION GAP 9 mmol/L (5-15); BLOOD UREA NITROGEN 11 mg/dL (7-18); CALCIUM 9.1 MG/DL (8.5-10.1); CARBON DIOXIDE 28 MMOL/L (21-32); CHLORIDE 101 MMOL/L (98-107); CREATININE 1.2 MG/DL (0.55-1.30); POTASSIUM 3.8 MMOL/L (3.5-5.1); SODIUM 138 MMOL/L (136-145)
--- NOTE | 2020-05-28 00:43 | Emergency Room Report ---
History of Present Illness General Chief Complaint: Chest Pain Source: Patient Present Illness HPI Patient is a 30-year-old male presents for increased chest discomfort. Reports of increased palpitations after doing crystal meth. patient had recent ER visits for similar type symptoms. No prior cardiac history. Reports having some generalized abdominal discomfort. Denies any nausea or vomiting. Denies a ny other current complaints. No recent fever. Allergies: Coded Allergies: No Known Allergies (Unverified , 07/28/19) COVID-19 Screening Contact w/high risk pt: No Experienced COVID-19 symptoms?: No COVID-19 Testing performed MIDDLE STITCHER: No Patient History Past Medical History: see triage record Reviewed Nursing Documentation: PMH: Agreed; PSxH: Agreed Review of Systems All Other Systems: negative except mentioned in HPI Physical Exam Vital Signs Date Time Temp Pulse Resp B/P (MAP) Pulse Ox O2 Delivery O2 Flow Rate FiO2 05/28/20 00:00 98.4 114 20 115/75 (88) 98 Room Air Sp02 EP Interpretation: reviewed, normal General Appearance: normal inspection, well appearing, no apparent distress, alert, GCS 15, non-toxic Head: normocephalic, atraumatic ENT: normal ENT inspection, hearing grossly normal, normal voice Neck: normal inspection, full range of motion, supple, no bony tend Respiratory: normal inspection, lungs clear, normal breath sounds, no respiratory distress, no retraction, no wheezing Cardiovascular #1: regular rate, rhythm, no edema Gastrointestinal: normal inspection, normal bowel sounds, non tender, soft, no guarding, no hernia Genitourinary: no CVA tenderness Musculoskeletal: normal inspection, back normal, normal range of motion Neurologic: alert, responsive, speech normal, normal inspection Psychiatric: normal inspection, judgement/insight normal, mood/affect normal Medical Decision Making Diagnostic Impression: Primary Impression: Methamphetamine use ER Course Patient presented for chest pain. Differential diagnosis include was not limited to pneumonia, bronchitis, myocardial infarction, anxiety, among others. EKG interpreted by me shows sinus tachycardia with a rate of 110 without acute S T or T wave changes. Patient is noted to have normal oxygen saturation. Vital signs are otherwise stable other than initial tachycardia. Patient was given Ativan with improvement in his heart rate.Patient is laboratory testing showed negative troponin as well as a negative D-dimer. Chest x-ray was unremarkable. Patient was noted to have improvement in heart rate as well as symptoms after Ativan. Appears the patient's pain is related to recent substance abuse. He was again advised to stop using methamphetamine. He is advised to follow-up with outpatient drug treatment. He was given referrals. This medical record is generated with [employer] makeup sales consultant software. There may be some makeup sales consultant discrepancies related to use of this software Labs Test 05/28/20 00:15 05/28/20 00:38 White Blood Count 8.9 K/UL (4.8-10.8) Red Blood Count 5.56 M/UL (4.70-6.10) Hemoglobin 16.6 G/DL (14.2-18.0) Hematocrit 45.6 % (42.0-52.0) Mean Corpuscular Volume 82 FL (80-99) Mean Corpuscular Hemoglobin 29.8 PG (27.0-31.0) Mean Corpuscular Hemoglobin Concent 36.4 G/DL (32.0-36.0) Red Cell Distribution Width 12.1 % (11.6-14.8) Platelet Count 265 K/UL (150-450) Mean Platelet Volume 6.7 FL (6.5-10.1) Neutrophils (%) (Auto) 70.6 % (45.0-75.0) Lymphocytes (%) (Auto) 16.9 % (20.0-45.0) Monocytes (%) (Auto) 8.8 % (1.0-10.0) Eosinophils (%) (Auto) 2.7 % (0.0-3.0) Basophils (%) (Auto) 1.1 % (0.0-2.0) D-Dimer < 0.19 mg/L FEU Sodium Level 138 MMOL/L (136-145) Potassium Level 3.8 MMOL/L (3.5-5.1) Chloride Level 101 MMOL/L (98-107) Carbon Dioxide Level 28 MMOL/L (21-32) Anion Gap 9 mmol/L (5-15) Blood Urea Nitrogen 11 mg/dL (7-18) Creatinine 1.2 MG/DL (0.55-1.30) Estimat Glomerular Filtration Rate > 60 mL/min (>60) Glucose Level 150 MG/DL (74-106) Calcium Level 9.1 MG/DL (8.5-10.1) Total Bilirubin 0.8 MG/DL (0.2-1.0) Aspartate Amino Transf (AST/SGOT) 25 U/L (15-37) Alanine Aminotransferase (ALT/SGPT) 41 U/L (12-78) Alkaline Phosphatase 109 U/L (46-116) Troponin I 0.000 ng/mL (0.000-0.056) Pro-B-Type Natriuretic Peptide 7 pg/mL (0-125) Total Protein 7.3 G/DL (6.4-8.2) Albumin 4.0 G/DL (3.4-5.0) Globulin 3.3 g/dL Albumin/Globulin Ratio 1.2 (1.0-2.7) Urine Opiates Screen Negative (NEGATIVE) Urine Barbiturates Screen Negative (NEGATIVE) Phencyclidine (PCP) Screen Negative (NEGATIVE) Urine Amphetamines Screen Positive (NEGATIVE) Urine Benzodiazepines Screen Negative (NEGATIVE) Urine Cocaine Screen Negative (NEGATIVE) Urine Marijuana (THC) Screen Positive (NEGATIVE) EKG Diagnostic Results Rate: tachycardiac Rhythm: NSR ST Segments: no acute changes Last Vital Signs Date Time Temp Pulse Resp B/P (MAP) Pulse Ox O2 Delivery O2 Flow Rate FiO2 05/28/20 00:17 105 18 115/79 100 05/28/20 00:10 98.4 Room Air Status: improved Disposition: HOME, SELF-CARE Condition: Stable Scripts Omeprazole (OMEPRAZOLE) 20 Mg Capsule. 20 MG ORAL DAILY for Gerd, #30 CAP Prov: Juni May MD 05/28/20 Referrals: [facility],REFERRING (PCP) Juni May MD May 28, 2020 00:43
[2020-05-28 00:45] VITALS: BP 120/74
[2020-05-28 00:49] LABS: ALANINE AMINOTRANSFERASE 41 U/L (12-78); ALBUMIN/GLOBULIN RATIO 1.2 (1.0-2.7); ALKALINE PHOSPHATASE 109 U/L (46-116); ASPARTATE AMINO TRANSFERASE 25 U/L (15-37); BILIRUBIN,TOTAL 0.8 MG/DL (0.2-1.0)
[2020-05-28] MEDS ORDERED: OMEPRAZOLE20 M2 ORAL (01:05)
[2020-05-28 01:15] VITALS: BP 116/66
--- NOTE | 2020-05-30 20:54 | Cardiology Report ---
APPROVED REPORT EKG Measurement Heart [id number] [place] [id number] <Conclusion> Sinus tachycardia Otherwise normal ECG
== END 2020-05-28 01:15 | disposition home or self-care (01) ==
LOC: EMR 05-28 00:17
DX: F15.90 Other stimulant use, unspecified, uncomplicated (principal); R10.9 Unspecified abdominal pain; R00.0 Tachycardia, unspecified; Q24.0 Dextrocardia
CPT/HCPCS: 36415; 71045; 80053; 80307; 83880; 84484; 85025; 85379; 93005; 96374; 96375; S0028; Z7502; 99284

== ENCOUNTER 2020-05-30 06:38 | Emergency (ER) | payer OTHER ==
[~2020-05-30] VITALS: Ht 165.1 cm; Wt 86.2 kg
--- NOTE | 2020-05-30 06:49 | NUR ---
ED Nurse Note: Patient brought in by ambulance from home [id number] d/t epigastric abdominal pain 7/10 started 1 hour prior to arrival. Patient aao x 4 and ambulatory. Patient denies n/v/d. Patient placed on potline monitor, no acute distress noted.
[2020-05-30 06:50] VITALS: BP 133/78
--- NOTE | 2020-05-30 06:55 | Emergency Room Report ---
History of Present Illness General Chief Complaint: Abdominal Pain Source: Patient Present Illness HPI Disclaimer: Please note that this report is being documented using [employer] technology. This can lead to erroneous entry secondary to incorrect interpretation by the dictating instrument. HPI: 30-year-old male history of substance abuse presents for evaluation abdominal pain and palpitations. He presents by EMS from a hotel room reportedly where he was smoking marijuana. He states he smelled a strange smell which caused him nausea and gagging but no vomiting. He reports some cramping in the upper abdomen and some palpitations. Denied cough, fever, chills, vomiting, diarrhea. Has a history of gastritis as well. Does not take medications. No recent COVID-19 testing. No exacerbating relieving symptoms. Nausea appears to be resolving. He still feels palpitations. PMH: Amphetamine abuse, substance abuse, gastritis PSH: Reviewed Allergies: None Social Hx: Substance abuse history Allergies: Coded Allergies: No Known Allergies (Unverified , 07/28/19) COVID-19 Screening Contact w/high risk pt: No Experienced COVID-19 symptoms?: No COVID-19 Testing performed BUSINESS RULES DEVELOPER: No Review of Systems All Other Systems: negative except mentioned in HPI Physical Exam Vital Signs Date Time Temp Pulse Resp B/P (MAP) Pulse Ox O2 Delivery O2 Flow Rate FiO2 05/30/20 06:39 98.1 120 18 138/89 (105) 98 Room Air General: Awake and alert, no acute distress HEENT: NC/AT. EOMI. Chest Wall: EKG leads from previous hospital. No bony tenderness or deformity. Cardiovascular: Tachycardic. S1 and S2 normal. No murmur appreciated Resp: Normal work of breathing. No cough, wheezing or crackles appreciated Abdomen: Abdomen is soft, nondistended. Nontender Skin: Intact. No abrasions, laceration or rash over the exposed skin MSK: Normal tone and bulk. Moving all extremities. No obvious deformity. Neuro: Awake and alert. Mentating appropriately. Medical Decision Making Diagnostic Impression: Primary Impression: Nausea Additional Impression: Palpitations ER Course Is a 30-year-old male presenting for evaluation of nausea palpitations. Differential includes is not limited to dehydration, electrolyte abnormality, anxiety, GERD, gastritis, gastroenteritis, pancreatitis, viral syndrome, sub stance abuse to name a few. EKG is nonischemic though does show some inferior and lateral Q waves similar to EKG on 05/18/2020. Blood work including troponin are within normal limits. No infiltrate, pneumothorax or other acute findings on chest x-ray aside from dextrocardia which the patient does demonstrate on his prior imaging. Patient declined to give urine for UA and tox screen. This point heart rate is improved and he stable for outpatient follow-up. Will provide resources on your blood primary care clinics. Copies of his x-ray and blood work were provided to patient at his request. Instructed to return with new or worsening symptoms. Laboratory Tests Test 05/30/20 06:53 White Blood Count 7.8 K/UL (4.8-10.8) Red Blood Count 5.11 M/UL (4.70-6.10) Hemoglobin 15.3 G/DL (14.2-18.0) Hematocrit 45.9 % (42.0-52.0) Mean Corpuscular Volume 90 FL (80-99) Mean Corpuscular Hemoglobin 29.9 PG (27.0-31.0) Mean Corpuscular Hemoglobin Concent 33.2 G/DL (32.0-36.0) Red Cell Distribution Width 13.1 % (11.6-14.8) Platelet Count 233 K/UL (150-450) Mean Platelet Volume 8.0 FL (6.5-10.1) Neutrophils (%) (Auto) 70.3 % (45.0-75.0) Lymphocytes (%) (Auto) 18.6 % (20.0-45.0) L Monocytes (%) (Auto) 7.9 % (1.0-10.0) Eosinophils (%) (Auto) 2.0 % (0.0-3.0) Basophils (%) (Auto) 1.1 % (0.0-2.0) Sodium Level 139 MMOL/L (136-145) Potassium Level 4.0 MMOL/L (3.5-5.1) Chloride Level 105 MMOL/L (98-107) Carbon Dioxide Level 30 MMOL/L (21-32) Anion Gap 4 mmol/L (5-15) L Blood Urea Nitrogen 13 mg/dL (7-18) Creatinine 1.2 MG/DL (0.55-1.30) Estimated Glomerular Filtration Rate > 60 mL/min (>60) Glucose Level 116 MG/DL (74-106) H Calcium Level 8.6 MG/DL (8.5-10.1) Total Bilirubin 0.7 MG/DL (0.2-1.0) Aspartate Amino Transferase (AST) 24 U/L (15-37) Alanine Aminotransferase (ALT) 45 U/L (12-78) Alkaline Phosphatase 102 U/L (46-116) Troponin I 0.000 ng/mL (0.000-0.056) Total Protein 7.5 G/DL (6.4-8.2) Albumin 3.7 G/DL (3.4-5.0) Globulin 3.8 g/dL Albumin/Globulin Ratio 1.0 (1.0-2.7) Lipase 123 U/L (73-393) Serum Alcohol < 3 mg/dL EKG Diagnostic Results Troponin ordered: Yes When was troponin ordered?: May 30, 2020 EKG Time: 07:14 Rate: tachycardiac Rhythm: NSR ST Segments: no acute changes Other Impression Sinus rhythm, normal axis, normal intervals, no ST segment changes. Inferior lateral Q waves. Similar to EKG on 05/18/2020 Rhythm Strip Diag. Results Rhythm Strip Time: 07:14 EP Interpretation: yes Rate: 100s Rhythm: NSR, no PVC's, no ectopy Chest X-Ray Diagnostic Results Chest X-Ray Diagnostic Results : Chest X-Ray Ordered: Yes # of Views/Limited/Complete: 1 View Indication: Chest Pain Interpretation: no consolidation, no effusion, no pneumothorax, other - Dextrocardia Impression: No acute disease - Dextrocardia previously demonstrated Electronically Signed by: Electronically signed by Dr. Jaspal Hawk Last Vital Signs Date Time Temp Pulse Resp B/P (MAP) Pulse Ox O2 Delivery O2 Flow Rate FiO2 05/30/20 06:50 98.1 105 18 133/78 98 Room Air Disposition: HOME, SELF-CARE Condition: Stable Jaspal Hawk MD May 30, 2020 06:55
--- NOTE | 2020-05-30 07:06 | NUR ---
HAND-OFF: Report given to JAYLENE Sanchez.
[2020-05-30 07:15] LABS: BASOPHILS % (AUTO) 1.1 % (0.0-2.0); HEMATOCRIT 45.9 % (42.0-52.0); HEMOGLOBIN 15.3 G/DL (14.2-18.0); LYMPHOCYTES % (AUTO) 18.6 % (20.0-45.0); MEAN CORPUSCULAR VOLUME 90 FL (80-99); MONOCYTES % (AUTO) 7.9 % (1.0-10.0); NEUTROPHILS % (AUTO) 70.3 % (45.0-75.0); PLATELET COUNT 233 K/UL (150-450); RED BLOOD COUNT 5.11 M/UL (4.70-6.10); RED CELL DISTRIBUTION WIDTH 13.1 % (11.6-14.8); WHITE BLOOD COUNT 7.8 K/UL (4.8-10.8)
--- NOTE | 2020-05-30 07:23 | NUR ---
ED Nurse Note: Report received from JAYLENE Camp. Pt lying comfortably in bed with no signs of distress. A+Ox4, respirations even and unlabored on room air. Vitals stable as documented. Pt made aware of need for urine sample.
[2020-05-30 07:25] LABS: ANION GAP 4 mmol/L (5-15); BLOOD UREA NITROGEN 13 mg/dL (7-18); CALCIUM 8.6 MG/DL (8.5-10.1); CARBON DIOXIDE 30 MMOL/L (21-32); CHLORIDE 105 MMOL/L (98-107); CREATININE 1.2 MG/DL (0.55-1.30); SODIUM 139 MMOL/L (136-145)
[2020-05-30 07:29] LABS: ALANINE AMINOTRANSFERASE 45 U/L (12-78); ALBUMIN 3.7 G/DL (3.4-5.0); ALKALINE PHOSPHATASE 102 U/L (46-116); ASPARTATE AMINO TRANSFERASE 24 U/L (15-37); BILIRUBIN,TOTAL 0.7 MG/DL (0.2-1.0)
--- NOTE | 2020-05-30 07:51 | NUR ---
ED Nurse Note: pt declined giving urine sample.
[2020-05-30 08:00] VITALS: BP 141/82
--- NOTE | 2020-05-30 08:00 | NUR ---
ER DISCHARGE NOTE: Patient is cleared to be discharged per ERMD, pt is aox4, on room air, with stable vital signs. pt was given dc and prescription instructions, pt was able to verbalize understanding, pt id band and iv site removed without complications. pt is able to ambulate with steady gait. pt took all belongings. Pt has safe destination upon discharge.
--- NOTE | 2020-05-30 11:44 | Diagnostic Imaging Report ---
Procedure: XRAY Chest 1v Reason for study: Chest pain Comparison films: 05/28/2020. FINDINGS: A single one view chest is obtained. Vascularity is normal. The lung head are clear bilaterally. Cardiac and mediastinal silhouette are within normal limits. CP angles are sharp. The bony thorax appear unremarkable. IMPRESSION: NO ACUTE CARDIOPULMONARY DISEASE.
--- NOTE | 2020-05-30 15:20 | Cardiology Report ---
APPROVED REPORT EKG Measurement Heart [id number] [place] [id number] <Conclusion> Sinus tachycardia Possible Lateral infarct, age undetermined Abnormal ECG
== END 2020-05-30 08:00 | disposition home or self-care (01) ==
LOC: EDUNIT# 06:38 → EDBD 06:38 → EMR 07:27
DX: R00.2 Palpitations (principal); R11.0 Nausea; R00.0 Tachycardia, unspecified; R10.9 Unspecified abdominal pain; Q24.0 Dextrocardia
CPT/HCPCS: 36415; 71045; 80053; 83690; 84484; 85025; 93005; G0480; Z7502; 99283

== ENCOUNTER 2020-05-31 22:54 | Inpatient (IN) | payer OTHER ==
[~2020-05-31] VITALS: Ht 167.6 cm; Wt 87.6 kg
--- NOTE | 2020-05-31 22:55 | NUR ---
ED Nurse Note: brought in by ambulance odalys ra 60 from home c/o upper abdominal pain 03/19 x 5 days. denies NVD. changed into gown; attached to monitor. vitals stable. all safety measures met.
[2020-05-31 23:00] VITALS: BP 147/91
[2020-05-31] MEDS ORDERED: Metoclopramide 10mg/2ml Inj IVP ONE (23:00)
[2020-05-31] MEDS ORDERED: DiphenhydrAMINE 50mg/ml Inj IVP ONE (23:00)
--- NOTE | 2020-05-31 23:00 | NUR ---
ED Nurse Note: iv access established. blood collected; sent down to lab. unable to collect urine at this time; pt states will provide when able; refused straight cath; ermd aware.
--- NOTE | 2020-05-31 23:06 | Emergency Room Report ---
History of Present Illness General Chief Complaint: Abdominal Pain Source: Patient, EMS Present Illness HPI Patient presents via paramedics for abdominal pain. He states this has been going on for several months. He has had multiple evaluations at different hospitals including [facility] and here. Apparently he has been seen in times this month at our facility. He is complaining about fullness and bloating in the epigastric area that he rates 8/10 pain. Is not taking any medication for this he says that he has not received any prescriptions from hospitals. He says that no one has diagnosed the problem. In the past he was prescribed omeprazole. In reviewing old labs the patient had a positive tox screen for amphetamines on May 28. He denies use of this at this time. His tox screen was also positive for THC. He denies smoking cigarettes or drinking alcohol. The patient states that he used to take Seroquel and a second antipsychotic. He does admit to feeling anxious at this time. No fevers, chills, sore throat, chest pain, palpitations, diarrhea, dysuria, shortness of breath, joint pain, rashes, visual changes, dizziness, headache. Allergies: Coded Allergies: No Known Allergies (Unverified , 07/28/19) COVID-19 Screening Contact w/high risk pt: No Experienced COVID-19 symptoms?: No COVID-19 Testing performed COMMUNITY AIDE: No Patient History Past Medical History: see triage record Social History: Reports: drug use; Denies: smoking, alcohol use Social History Narrative Not working at this time. Trained as a [employer]. Lives by himself. Reviewed Nursing Documentation: PMH: Agreed; PSxH: Agreed Nursing Documentation-PM Past Medical History: No Stated History Review of Systems All Other Systems: negative except mentioned in HPI Physical Exam Vital Signs Date Time Temp Pulse Resp B/P (MAP) Pulse Ox O2 Delivery O2 Flow Rate FiO2 05/31/20 22:50 98.4 101 18 147/91 (109) 99 Room Air Sp02 EP Interpretation: reviewed, normal General Appearance: well appearing, no apparent distress, GCS 15 Head: normocephalic Eyes: bilateral eye normal inspection, bilateral eye PERRL, bilateral eye EOMI ENT: moist mucus membranes Neck: supple Respiratory: lungs clear, normal breath sounds Cardiovascular #1: regular rate, rhythm Cardiovascular #2: 2+ radial (R) Gastrointestinal: normal inspection, normal bowel sounds, no mass, non- distended, no guarding, no rebound, tenderness - Reported tenderness epigastric Genitourinary: no CVA tenderness Musculoskeletal: back normal, normal range of motion, gait/station normal Neurologic: alert, oriented x3, grossly normal Psychiatric: depressed affect, other - Flat affect Skin: no rash, warm/dry, other - IV sites Medical Decision Making Diagnostic Impression: Primary Impression: Hyponatremia Additional Impressions: Hypokalemia Abdominal pain Qualified Codes: R10.13 - Epigastric pain Methamphetamine abuse ER Course Patient presents with epigastric discomfort. Has had multiple visits for the same problem. In the past he had a prescription for omeprazole but is not taking it at this time. Also in the past he was positive for amphetamines which he denies usage at this time. Differential includes gastritis, pancreatitis, GERD, adverse reaction to THC, electrolyte imbalance amongst others. Patient evaluated with EKG, abdominal x-ray and labs. Patient treated with IV hydration, Reglan, Benadryl and Pepcid. EKG normal sinus rhythm rate 100 Found sodium 120. NS begun. Also potassium given. CBC normal. Urinalysis clear. Urine tox screen again positive for amphetamines and THC. Normal saline continued to correct hyponatremia. Consideration for psychogenic polydipsia. However as sodium is significantly low and patient admission indicated. Consider psychiatric evaluation as patient with repeated ED presentations and non-compliant with prior psychiatric history. Laboratory Tests Test 05/31/20 23:00 06/01/20 01:20 06/01/20 08:25 White Blood Count 7.3 K/UL (4.8-10.8) 6.6 K/UL (4.8-10.8) Red Blood Count 5.24 M/UL (4.70-6.10) 4.74 M/UL (4.70-6.10) Hemoglobin 15.4 G/DL (14.2-18.0) 13.8 G/DL (14.2-18.0) L Hematocrit 45.2 % (42.0-52.0) 41.7 % (42.0-52.0) L Mean Corpuscular Volume 86 FL (80-99) 88 FL (80-99) Mean Corpuscular Hemoglobin 29.4 PG (27.0-31.0) 29.0 PG (27.0-31.0) Mean Corpuscular Hemoglobin Concent 34.1 G/DL (32.0-36.0) 33.0 G/DL (32.0-36.0) Red Cell Distribution Width 12.5 % (11.6-14.8) 12.7 % (11.6-14.8) Platelet Count 275 K/UL (150-450) 224 K/UL (150-450) Mean Platelet Volume 7.6 FL (6.5-10.1) 7.3 FL (6.5-10.1) Neutrophils (%) (Auto) 65.0 % (45.0-75.0) 57.6 % (45.0-75.0) Lymphocytes (%) (Auto) 22.8 % (20.0-45.0) 28.1 % (20.0-45.0) Monocytes (%) (Auto) 8.1 % (1.0-10.0) 9.7 % (1.0-10.0) Eosinophils (%) (Auto) 3.3 % (0.0-3.0) H 3.7 % (0.0-3.0) H Basophils (%) (Auto) 0.8 % (0.0-2.0) 0.9 % (0.0-2.0) Sodium Level 120 MMOL/L (136-145) L 140 MMOL/L (136-145) # Potassium Level 3.1 MMOL/L (3.5-5.1) L 4.0 MMOL/L (3.5-5.1) Chloride Level 97 MMOL/L (98-107) L 106 MMOL/L (98-107) Carbon Dioxide Level 29 MMOL/L (21-32) 27 MMOL/L (21-32) Anion Gap -6 mmol/L (5-15) L 7 mmol/L (5-15) Blood Urea Nitrogen 10 mg/dL (7-18) 8 mg/dL (7-18) Creatinine 1.1 MG/DL (0.55-1.30) 1.0 MG/DL (0.55-1.30) Estimated Glomerular Filtration Rate > 60 mL/min (>60) > 60 mL/min (>60) Glucose Level 111 MG/DL (74-106) H 101 MG/DL (74-106) Calcium Level 8.8 MG/DL (8.5-10.1) 8.3 MG/DL (8.5-10.1) L Total Bilirubin 0.3 MG/DL (0.2-1.0) 0.7 MG/DL (0.2-1.0) Aspartate Amino Transferase (AST) 25 U/L (15-37) 20 U/L (15-37) Alanine Aminotransferase (ALT) 39 U/L (12-78) 34 U/L (12-78) Alkaline Phosphatase 120 U/L (46-116) H 81 U/L (46-116) Total Creatine Kinase 197 U/L (26-308) Troponin I 0.000 ng/mL (0.000-0.056) Total Protein 7.3 G/DL (6.4-8.2) 6.6 G/DL (6.4-8.2) Albumin 4.1 G/DL (3.4-5.0) 3.3 G/DL (3.4-5.0) L Globulin 3.2 g/dL 3.3 g/dL Albumin/Globulin Ratio 1.3 (1.0-2.7) 1.0 (1.0-2.7) Lipase 117 U/L (73-393) Urine Color Pale yellow Urine Appearance Clear Urine pH 6 (4.5-8.0) Urine Specific [place] 1.015 (1.005-1.035) Urine Protein Negative (NEGATIVE) Urine Glucose (UA) Negative (NEGATIVE) Urine Ketones Negative (NEGATIVE) Urine Blood Negative (NEGATIVE) Urine Nitrite Negative (NEGATIVE) Urine Bilirubin Negative (NEGATIVE) Urine Urobilinogen Normal MG/DL (0.0-1.0) Urine Leukocyte Esterase Negative (NEGATIVE) Urine Osmolality 396 mOsm/kg (429-449) L Urine Random Sodium 89 mmol/L (20-110) Urine Opiates Screen Negative (NEGATIVE) Urine Barbiturates Screen Negative (NEGATIVE) Phencyclidine (PCP) Screen Negative (NEGATIVE) Urine Amphetamines Screen Positive (NEGATIVE) H Urine Benzodiazepines Screen Negative (NEGATIVE) Urine Cocaine Screen Negative (NEGATIVE) Urine Marijuana (THC) Screen Positive (NEGATIVE) H Phosphorus Level 4.2 MG/DL (2.5-4.9) Magnesium Level 2.2 MG/DL (1.8-2.4) EKG Diagnostic Results Rate: normal Rhythm: NSR ST Segments: no acute changes Rhythm Strip Diag. Results EP Interpretation: yes Rhythm: NSR, no PVC's, no ectopy Other X-Ray Diagnostic Results Other X-Ray Diagnostic Results : X-Ray ordered: Abdomen # of Views/Limited Vs Complete: 2 View Interpretation: nonspecific bowel gas, no sbo, other - No masses Impression: Other Electronically Signed by: Electronically signed by Holden Mitchell MD Last Vital Signs Date Time Temp Pulse Resp B/P (MAP) Pulse Ox O2 Delivery O2 Flow Rate FiO2 06/01/20 08:00 98.1 75 20 118/80 (93) 98 06/01/20 02:25 Room Air Status: improved Disposition: ADMITTED INPATIENT Condition: Serious Holden Mitchell MD May 31, 2020 23:06
[2020-05-31 23:29] LABS: BASOPHILS % (AUTO) 0.8 % (0.0-2.0); EOSINOPHILS % (AUTO) 3.3 % (0.0-3.0); HEMATOCRIT 45.2 % (42.0-52.0); HEMOGLOBIN 15.4 G/DL (14.2-18.0); LYMPHOCYTES % (AUTO) 22.8 % (20.0-45.0); MEAN CORPUSCULAR VOLUME 86 FL (80-99); MONOCYTES % (AUTO) 8.1 % (1.0-10.0); PLATELET COUNT 275 K/UL (150-450); RED BLOOD COUNT 5.24 M/UL (4.70-6.10); RED CELL DISTRIBUTION WIDTH 12.5 % (11.6-14.8); WHITE BLOOD COUNT 7.3 K/UL (4.8-10.8)
[2020-05-31 23:39] LABS: ANION GAP -6 mmol/L (5-15); BLOOD UREA NITROGEN 10 mg/dL (7-18); CALCIUM 8.8 MG/DL (8.5-10.1); CARBON DIOXIDE 29 MMOL/L (21-32); CHLORIDE 97 MMOL/L (98-107); CREATININE 1.1 MG/DL (0.55-1.30); POTASSIUM 3.1 MMOL/L (3.5-5.1); SODIUM 120 MMOL/L (136-145)
[2020-05-31 23:43] LABS: ALANINE AMINOTRANSFERASE 39 U/L (12-78); ALBUMIN 4.1 G/DL (3.4-5.0); ALBUMIN/GLOBULIN RATIO 1.3 (1.0-2.7); ALKALINE PHOSPHATASE 120 U/L (46-116); ASPARTATE AMINO TRANSFERASE 25 U/L (15-37); BILIRUBIN,TOTAL 0.3 MG/DL (0.2-1.0); CREATINE KINASE 197 U/L (26-308)
[2020-06-01] MEDS: NS w/KCl 40mEq 1,000 ML IV SCH ×2 (00:50→01:50)
--- NOTE | 2020-06-01 01:00 | NUR ---
ED Nurse Note: patient ambulated steady to bathroom. urine collected; sent down to lab. assisted back to bed. patient presents in no acute distress. vitals stable to baseline
[2020-06-01 01:36] VITALS: BP 124/80
[2020-06-01 01:38] LABS: APPEARANCE,URINE CLEAR; BILIRUBIN, URINE NEGATIVE (NEGATIVE); COLOR,URINE PALE YELLOW; GLUCOSE, URINE (UA) NEGATIVE (NEGATIVE); KETONES,URINE NEGATIVE (NEGATIVE); LEUKOCYTE ESTERASE ,URINE NEGATIVE (NEGATIVE); NITRITE,URINE NEGATIVE (NEGATIVE); PH,URINE 6 (4.5-8.0); PROTEIN,URINE NEGATIVE (NEGATIVE); UROBILINOGEN,URINE NORMAL MG/DL (0.0-1.0)
[2020-06-01 01:50] VITALS: BP 125/84
--- NOTE | 2020-06-01 01:50 | NUR ---
TRANSFER TO FLOOR: Patient transferred to med surg 319-1 as ordered, per nehemias rosado. Report given to laurel lucio. patient stable for transport. transferred to unit via wheelchair with rn. belongings and admission packet sent with patient.
--- NOTE | 2020-06-01 01:50 | NUR ---
NURSE NOTES: Received phone report from JAYLENE Denney.
--- NOTE | 2020-06-01 01:55 | NUR ---
NURSE NOTES: Received patient via wheelchair, steady gait. alert and oriented x4, no distress noted at this time. Oriented to room and unit routines, discussed plan of care. Reviewed belongings list with patient. Bed in low position, locked, side rails up x2, call light within reach. Encouraged to call as needed for assistance. Patient verbalizes understanding.
--- NOTE | 2020-06-01 02:20 | NUR ---
NURSE NOTES: Placed call to Dr Loomis for admission orders. Left message.
--- NOTE | 2020-06-01 03:40 | NUR ---
NURSE NOTES: Left message for Dr Loomis regarding admission orders.
[2020-06-01 04:00] VITALS: BP 108/73
--- NOTE | 2020-06-01 05:00 | NUR ---
NURSE NOTES: Patient sleeping.
--- NOTE | 2020-06-01 05:23 | NUR ---
NURSE NOTES: Also at this time left message for Dr Loomis requesting social service consult as well as psych eval if possible.
--- NOTE | 2020-06-01 05:23 | NUR ---
NURSE NOTES: Placed call to Dr Loomis for admission orders.
[2020-06-01] MEDS: Morphine Sulfate 2mg/ml Inj(IV/IM USE ONLY) IVP PRN ×2 (06:40→11:52)
--- NOTE | 2020-06-01 07:15 | NUR ---
NURSE HAND-OFF: Important Events on Shift: admission and start of IVF and pain med Patient Status: stable Diet: NPO except meds and ice chips Pending Orders: labs, request social service consult and psych consult please Pending Results/Labs: Pending MD notification:[] Latest Vital Signs: Temperature 97.7 , Pulse 66 , B/P 108 /73 , Respiratory Rate 20 , O2 SAT 96 , Room Air, O2 Flow Rate . Vital Sign Comment: [] Latest Gardner Fall Score: 35 Fall Risk: Medium Risk Safety Measures: Call light Within Reach, Bed Alarm Zone 1, Side Rails Side Rails x2, Bed position Low and Locked. Fall Precautions: Patient Fall Education Report given to JAYLENE Ndiaye. Rounds done, patient sleeping.
--- NOTE | 2020-06-01 07:26 | NUR ---
NURSE NOTES: Report received from Monet MARIEE, rounds made. Patient sleeping in low semi-fowlers position in bed, relaxed/calm. No distress on RA. Respirations even/unlabored. IV D5 1/2 NS + 20 KCL at 75 ml/hr to [facility], site asymptomatic. Call light in reach, bed in lowest position, will continue to monitor. Addendum: 06/01/20 at 1100 by Zelda Esparza RN *D5NS +20 KCL at 75 ml/hr Addendum: 06/01/20 at 1620 by Zelda Esparza RN Patient remains NPO, ice chips provided.
[2020-06-01 08:00] VITALS: BP 118/80
[2020-06-01 08:55] LABS: BASOPHILS % (AUTO) 0.9 % (0.0-2.0); EOSINOPHILS % (AUTO) 3.7 % (0.0-3.0); HEMATOCRIT 41.7 % (42.0-52.0); HEMOGLOBIN 13.8 G/DL (14.2-18.0); LYMPHOCYTES % (AUTO) 28.1 % (20.0-45.0); MEAN CORPUSCULAR VOLUME 88 FL (80-99); MONOCYTES % (AUTO) 9.7 % (1.0-10.0); NEUTROPHILS % (AUTO) 57.6 % (45.0-75.0); PLATELET COUNT 224 K/UL (150-450); RED BLOOD COUNT 4.74 M/UL (4.70-6.10); RED CELL DISTRIBUTION WIDTH 12.7 % (11.6-14.8); WHITE BLOOD COUNT 6.6 K/UL (4.8-10.8)
[2020-06-01] MEDS ORDERED: Heparin 5000 units/ml inj SUBQ SCH (09:00)
[2020-06-01] MEDS ORDERED: Pantoprazole Inj IVP SCH (09:00)
[2020-06-01 09:26] LABS: ALANINE AMINOTRANSFERASE 34 U/L (12-78); ALBUMIN 3.3 G/DL (3.4-5.0); ALKALINE PHOSPHATASE 81 U/L (46-116); ANION GAP 7 mmol/L (5-15); ASPARTATE AMINO TRANSFERASE 20 U/L (15-37); BILIRUBIN,TOTAL 0.7 MG/DL (0.2-1.0); BLOOD UREA NITROGEN 8 mg/dL (7-18); CALCIUM 8.3 MG/DL (8.5-10.1); CARBON DIOXIDE 27 MMOL/L (21-32); CHLORIDE 106 MMOL/L (98-107); PHOSPHORUS 4.2 MG/DL (2.5-4.9); SODIUM 140 MMOL/L (136-145)
[2020-06-01 11:53] VITALS: BP 118/80
--- NOTE | 2020-06-01 12:26 | Diagnostic Imaging Report ---
EXAM: XRAY Abdomen 1v HISTORY: Reason For Exam: ABD PAIN COMPARISON: None. TECHNIQUE: Frontal view of the abdomen obtained. FINDINGS: There is a nonobstructed bowel gas pattern. Increased stool lucencies noted in the colon. No definite pathologic calcifications identified. There is no sign of free air. No acute abnormality noted of the visualized osseous structures. IMPRESSION: INCREASED STOOL LUCENCIES IN THE COLON. NO SIGN OF OBSTRUCTION.
--- NOTE | 2020-06-01 13:39 | Consultation ---
History of Present Illness General Date patient seen: Jun 01, 2020 Chief Complaint: Abdominal Pain Present Illness Allergies: Coded Allergies: No Known Allergies (Unverified , 07/28/19) Medication History Scheduled Omeprazole (Omeprazole), 20 MG ORAL DAILY Discontinued Medications Albuterol Sulfate* (Albuterol Sulfate Hhn*), 2.5 MG HHN Q4H PRN for Shortness of Breath Discontinued Reason: Therapy completed Azithromycin* (Zithromax*), 250 MG ORAL DAILY Discontinued Reason: Therapy completed Dicyclomine Hcl* (Dicyclomine Hcl*), 10 MG ORAL TID Discontinued Reason: Therapy completed Famotidine* (Pepcid 20mg tablet*), 20 MG ORAL DAILY Discontinued Reason: Therapy completed Guaifenesin/D-Methorphan Hb/Pe (Robitussin Cough-Cold Cf Liq*), 5 ML ORAL Q6H PRN for FOR COUGH Discontinued Reason: Therapy completed Omeprazole (Omeprazole), 20 MG ORAL DAILY Discontinued Reason: Therapy completed Ondansetron (Zofran), 4 MG ORAL Q6H PRN for Nausea & Vomiting Discontinued Reason: Therapy completed Patient History Healthcare decision maker Resuscitation status Advanced Directive on File Past Medical/Surgical History Past Medical/Surgical History: (1) Right clavicle fracture (2) Marijuana abuse Physical Exam General Appearance: WD/WN, no apparent distress Lines, tubes and drains: peripheral HEENT: normocephalic, anicteric Neck: non-tender, normal alignment, supple, normal inspection Respiratory/Chest: chest wall non-tender, lungs clear, normal breath sounds Breasts: no masses Cardiovascular/Chest: normal peripheral pulses, normal rate Abdomen: normal bowel sounds Genitourinary/Rectal: normal genital exam Extremities: normal range of motion Last 24 Hour Vital Signs Date Time Temp Pulse Resp B/P (MAP) Pulse Ox O2 Delivery O2 Flow Rate FiO2 06/01/20 11:53 98.4 82 20 118/80 (93) 96 06/01/20 09:00 Room Air 06/01/20 08:00 98.1 75 20 118/80 (93) 98 06/01/20 04:00 97.7 66 20 108/73 (85) 96 06/01/20 02:25 Room Air 06/01/20 01:50 98.4 88 16 124/80 100 Room Air 06/01/20 01:50 100.0 80 18 125/84 (98) 98 83 06/01/20 01:36 98.4 88 16 124/80 100 Room Air 05/31/20 23:00 100 18 Room Air 05/31/20 23:00 98.4 100 18 147/91 99 Room Air 05/31/20 22:50 98.4 101 18 147/91 (109) 99 Room Air Intake and Output 05/31/20 06/01/20 19:00 07:00 Intake Total 75 ml Output Total 400 ml Balance -325 ml Intake IV Total 75 ml Output Urine Total 400 ml # Voids 1 Laboratory Tests Test 05/31/20 23:00 06/01/20 01:20 06/01/20 08:25 White Blood Count 7.3 K/UL (4.8-10.8) 6.6 K/UL (4.8-10.8) Red Blood Count 5.24 M/UL (4.70-6.10) 4.74 M/UL (4.70-6.10) Hemoglobin 15.4 G/DL (14.2-18.0) 13.8 G/DL (14.2-18.0) L Hematocrit 45.2 % (42.0-52.0) 41.7 % (42.0-52.0) L Mean Corpuscular Volume 86 FL (80-99) 88 FL (80-99) Mean Corpuscular Hemoglobin 29.4 PG (27.0-31.0) 29.0 PG (27.0-31.0) Mean Corpuscular Hemoglobin Concent 34.1 G/DL (32.0-36.0) 33.0 G/DL (32.0-36.0) Red Cell Distribution Width 12.5 % (11.6-14.8) 12.7 % (11.6-14.8) Platelet Count 275 K/UL (150-450) 224 K/UL (150-450) Mean Platelet Volume 7.6 FL (6.5-10.1) 7.3 FL (6.5-10.1) Neutrophils (%) (Auto) 65.0 % (45.0-75.0) 57.6 % (45.0-75.0) Lymphocytes (%) (Auto) 22.8 % (20.0-45.0) 28.1 % (20.0-45.0) Monocytes (%) (Auto) 8.1 % (1.0-10.0) 9.7 % (1.0-10.0) Eosinophils (%) (Auto) 3.3 % (0.0-3.0) H 3.7 % (0.0-3.0) H Basophils (%) (Auto) 0.8 % (0.0-2.0) 0.9 % (0.0-2.0) Sodium Level 120 MMOL/L (136-145) L 140 MMOL/L (136-145) # Potassium Level 3.1 MMOL/L (3.5-5.1) L 4.0 MMOL/L (3.5-5.1) Chloride Level 97 MMOL/L (98-107) L 106 MMOL/L (98-107) Carbon Dioxide Level 29 MMOL/L (21-32) 27 MMOL/L (21-32) Anion Gap -6 mmol/L (5-15) L 7 mmol/L (5-15) Blood Urea Nitrogen 10 mg/dL (7-18) 8 mg/dL (7-18) Creatinine 1.1 MG/DL (0.55-1.30) 1.0 MG/DL (0.55-1.30) Estimat Glomerular Filtration Rate > 60 mL/min (>60) > 60 mL/min (>60) Glucose Level 111 MG/DL (74-106) H 101 MG/DL (74-106) Calcium Level 8.8 MG/DL (8.5-10.1) 8.3 MG/DL (8.5-10.1) L Total Bilirubin 0.3 MG/DL (0.2-1.0) 0.7 MG/DL (0.2-1.0) Aspartate Amino Transf (AST/SGOT) 25 U/L (15-37) 20 U/L (15-37) Alanine Aminotransferase (ALT/SGPT) 39 U/L (12-78) 34 U/L (12-78) Alkaline Phosphatase 120 U/L (46-116) H 81 U/L (46-116) Total Creatine Kinase 197 U/L (26-308) Troponin I 0.000 ng/mL (0.000-0.056) Total Protein 7.3 G/DL (6.4-8.2) 6.6 G/DL (6.4-8.2) Albumin 4.1 G/DL (3.4-5.0) 3.3 G/DL (3.4-5.0) L Globulin 3.2 g/dL 3.3 g/dL Albumin/Globulin Ratio 1.3 (1.0-2.7) 1.0 (1.0-2.7) Lipase 117 U/L (73-393) Urine Color Pale yellow Urine Appearance Clear Urine pH 6 (4.5-8.0) Urine Specific [place] 1.015 (1.005-1.035) Urine Protein Negative (NEGATIVE) Urine Glucose (UA) Negative (NEGATIVE) Urine Ketones Negative (NEGATIVE) Urine Blood Negative (NEGATIVE) Urine Nitrite Negative (NEGATIVE) Urine Bilirubin Negative (NEGATIVE) Urine Urobilinogen Normal MG/DL (0.0-1.0) Urine Leukocyte Esterase Negative (NEGATIVE) Urine Osmolality 396 mOsm/kg (429-449) L Urine Random Sodium 89 mmol/L (20-110) Urine Opiates Screen Negative (NEGATIVE) Urine Barbiturates Screen Negative (NEGATIVE) Phencyclidine (PCP) Screen Negative (NEGATIVE) Urine Amphetamines Screen Positive (NEGATIVE) H Urine Benzodiazepines Screen Negative (NEGATIVE) Urine Cocaine Screen Negative (NEGATIVE) Urine Marijuana (THC) Screen Positive (NEGATIVE) H Phosphorus Level 4.2 MG/DL (2.5-4.9) Magnesium Level 2.2 MG/DL (1.8-2.4) Height (Feet): 5 Height (Inches): 6.00 Weight (Pounds): 193 Medications Current Medications Medications (Trade) Dose Ordered Sig/Cassy Route PRN Reason Start Time Stop Time Status Last Admin Dose Admin Acetaminophen (Tylenol) 650 mg Q6H PRN ORAL Pain Scale (3-5) 06/01/20 06:00 07/01/20 05:59 Dextrose/ Electrolytes 1,000 ml @ 75 mls/hr [id number] IV 06/01/20 09:00 07/01/20 08:59 06/01/20 06:30 Heparin Sodium (Porcine) (Heparin 5000 units/ml) 5,000 units EVERY 12 HOURS SUBQ 06/01/20 09:00 07/16/20 08:59 06/01/20 09:36 Morphine Sulfate (Morphine Sulfate) 2 mg Q4H PRN IVP Severe Pain (Pain Scale 7-10) 06/01/20 06:00 06/08/20 05:59 06/01/20 11:52 Ondansetron HCl (Zofran) 4 mg Q4H PRN IVP Nausea & Vomiting 06/01/20 06:00 07/01/20 05:59 Pantoprazole (Protonix) 40 mg BID IVP 06/01/20 09:00 07/01/20 08:59 06/01/20 09:36 Assessment/Plan Problem List: (1) Marijuana abuse ICD Codes: F12.10 - Cannabis abuse, uncomplicated SNOMED: 11889977 (2) Polysubstance abuse ICD Codes: F19.10 - Other psychoactive substance abuse, uncomplicated SNOMED: 585105781 (3) Gastritis ICD Codes: K29.70 - Gastritis, unspecified, without bleeding SNOMED: 8379376 Assessment/Plan: h2 blockers Hyponatremia has resolved symptomatic treatment GI f/u as outpatient Benito Wilson MD Jun 01, 2020 13:39
[2020-06-01] MEDS ORDERED: MYLANTA MAXIMU355 ML PO (13:41)
[2020-06-01] MEDS ORDERED: PROTONIX40 MG ORAL (13:41)
--- NOTE | 2020-06-01 15:00 | NUR ---
NURSE NOTES: Patient up to bathroom, provided hygiene items to wash, able to perform independently. No BM. Voids without difficulty. No NV. Tolerated regular diet.
--- NOTE | 2020-06-01 15:42 | NUR ---
CASE MANAGEMENT: INITIAL REVIEW 06/01/2020 30 YO M MARTIN FROM HOME CC: ABD PAIN PMHx: No Stated History SI: HYPONATREMIA VS: T 98.4 HR 101 RR 18 B/P 147/91 SATS 99% ON RA LABS: NA 120 K 3.1 CL 97 GLU 111 ALP 120 positive tox screen for amphetamines AND THC IS: REGLAN IV X1 PEPCID IV X1 NS BOLUS X1 BENADRYL IV X1 NS W/ KCL INITIATED PATIENT ADMITTED TO MED/SURG 06/01/2020 @ 0100 DCP: HOME PLAN OF CARE: SSW CONSULT
--- NOTE | 2020-06-01 15:48 | NUR ---
INSURANCE CLINICALS FAXED TO [facility] PER B/AR INFO FAX: [phone]
--- NOTE | 2020-06-01 15:55 | NUR ---
NURSE NOTES: Discharge instructions and medications reviewed with patient. RX from Dr. Wilson: Mylanta and Protonix, however prescriptions were not printed. Dr. Loomis reviewed with patient to obtain Mylanta over the counter and continue his Omeprazole (home medication prior to admission). Advised patient to call Dr. Valdovinos, information provided on discharge papers, for follow up appointment. Patient verbalized understanding. IV discontinued, no active bleeding. ID bracelet removed. All belongings and discharge instructions given to patient. Ambulated down to [facility] with RN, in stable condition. Discharged at 1555.
--- NOTE | 2020-06-01 15:59 | NUR ---
SHELL ASSEMBLER NOTE SW met w/ pt to discuss child welfare social worker concerns and discussed homelessness. PT has been homeless for a month, staying at various motels. Pt is single, never and has no children. Pt is currently unemployed, receives worker's compensation, waiting for his settlement. UDS positive for THC and amphetamine. Pt reports THC abuse, denies other substance abuse. PT declined counseling/tx intervention on substance abuse. Pt also declined to receive community resource packet. Pt denies having mental health issue and denies having suicidal/homicidal thought. Pt is ambulatory w/o DME and independent w/ ADls and IADLs. Pt has appropriate clothing. Emergency contact: Marie Bunn (mother) [phone]. Per pt, his mother is unable to provide housing assistance at this time. PT reports he will be going back to [facility] [address] [place] [address] upon DC. PT reports he will book the room once he gets there. SW explained negative ramification of unlicensed facilities. Pt verbalized understanding. Pt does not share any child welfare social worker concern/needs at this time. PT will dc to preferred location upon DC.
--- NOTE | 2020-06-01 17:52 | History & Physical ---
History and Physical History & Physicial Michael Loomis MD Jun 01, 2020 17:52
--- NOTE | 2020-06-01 19:45 | History and Physical Report ---
DATE OF ADMISSION: 06/01/2020 CHIEF COMPLAINT: Abdominal pain. HISTORY OF PRESENT ILLNESS: This is a 30-year-old gentleman with past medical history significant for GERD on Prilosec, who presented to the hospital complaining about abdominal pain that has been going on for 24 hours. The patient had multiple evaluations at different hospitals including [facility]. Apparently, he has been seen in the past month at [facility]. He is complaining about fullness and bloating and epigastric area pain 8/10. He is not taking any medication. He said that he received a prescription from the hospital for omeprazole, but has not been started. Shortly, after initial evaluation in the emergency, the patient was noted with urine drug screen significant for amphetamine in May 2019 as well as THC. He denies any smoking or alcohol abuse. Shortly after initial evaluation in the emergency, the patient was admitted to the hospital with abdominal pain as well as severe hyponatremia with sodium of 120. PAST MEDICAL HISTORY/PAST SURGICAL HISTORY: As above, history of acid reflux, right clavicle fracture, and marijuana use. MEDICATIONS AT HOME: Omeprazole. SOCIAL HISTORY: The patient denies any substance abuse, however, noted to have amphetamine as well as THC on urine screening in the past. Denies any alcohol or smoking cigarettes. FAMILY HISTORY: Noncontributory. REVIEW OF SYSTEMS: Mostly as above. No fever or chills. No nausea or vomiting. No diarrhea. No loss of consciousness. No chest pain, throat pain, palpitation, visual changes, dizziness, or headache. PHYSICAL EXAMINATION: VITAL SIGNS: Shortly after initial evaluation in the emergency department, the patient's vital signs noted to be 98.4, pulse of 101, respirations 18, and blood pressure 147/91. GENERAL: The patient is awake and responsive, in no acute distress. HEAD AND NECK: Pupils are equal and responsive to light. Extraocular movements are intact. Neck was supple. No JVD. LUNGS: Good air entry. No wheezes or rales. HEART: S1, S2. Regular rhythm. No gallops. ABDOMEN: Soft, nondistended, and nontender. Positive bowel sounds. No tenderness in the epigastric area was noted. No rebound tenderness. No fluid shift. EXTREMITIES: No cyanosis, clubbing, or edema. NEUROLOGIC: Cranial nerves II through XII grossly normal. Motor is 5/5 in all extremities. Gait is intact. LABORATORY DATA: On admission, sodium 120, potassium 3.1, chloride 97, bicarb 29, BUN 10, creatinine 1.1. Glucose 111. Alkaline phosphatase 120. Troponin is 0.00. Urine drug screen is positive for amphetamine and THC. WBC of 7.3, hemoglobin 15, hematocrit 45, platelets 275,000. Urinalysis, negative. Urine was 396. Urine random sodium is 89. KUB with increased stool, lucency in the colon. No significant obstruction. ASSESSMENT: 1. Abdominal pain, possibly due to acid reflux or peptic ulcer disease. 2. History of substance abuse, THC as well as amphetamine. 3. Hyponatremia. PLAN: 1. Admit the patient to medical floor. 2. Start the patient on IV hydration and clear liquid, advance as tolerated. 3. Monitor laboratory. 4. Code status is Full Code. 5. DVT prophylaxis, heparin subcutaneous. Michael Loomis M.D. DR: [facility] JOB#: [id number] CC:
[2020-06-02] MEDS ORDERED: FAMOTIDINE20 MG ORAL (22:23)
--- NOTE | 2020-06-03 12:06 | Discharge Summary ---
Discharge Summary Discharge Summary _ DATE OF ADMISSION: 06/01/2020 DATE OF DISCHARGE: 06/01/2020 ADMITTING MD: Dr. Michael Loomis DISCHARGED BY: Dr. Benito Wilson CONSULTANTS: Dr. Benito Wilson BRIEF HOSPITAL COURSE: Patient is a 30-year-old gentleman with past medical history significant for GERD, on Prilosec, presented to the hospital complaining of abdominal pain that has been ongoing for 24 hours. Patient had multiple evaluations at different hospitals including [facility]. Apparently he was in the hospital the previous month and complained of fullness and bloating in the epigastric area with pain 8/10. He is not taking any medications. He stated that he received a prescription for omeprazole but none has not started with the medication. Patient denies drug use. From previous records, patient had a positive toxicology screen for amphetamine and marijuana. Upon evaluation at ED, vital signs were stable. Blood work did not show any leukocytosis. Hemoglobin and hematocrit were stable. Sodium was 120. Potassium was 3.1. Urinalysis was clear. Urine toxicology was again positive for amphetamine and marijuana. He was given normal saline to collect hyponatremia. EKG was in normal sinus rhythm at a rate of 100. He was given IV hydration, Reglan, Benadryl and Pepcid. Due to hyponatremia, patient was admitted. He was admitted to medical floor. He was given IV hydration. He was given potassium replacement. He was continued on proton pump inhibitors twice daily. Random urine sodium was 89. KUB showed increased stool lucency in the colon. No significant obstruction. Repeat lab test showed improvement in electrolytes. Sodium and potassium normalized. Patient was cleared for discharge home. FINAL DIAGNOSES: Abdominal pain, possibly due to acid reflux or peptic ulcer disease Polysubstance abuse Hyponatremia, resolved Hypokalemia, resolved DISPOSITION: Patient was discharged home. DISCHARGE MEDICATIONS: Refer to Discharge Medication List. DISCHARGE INSTRUCTIONS: Follow-up in a week. I have been assigned to complete a discharge summary on this account, I was not involved with the patient's management.--ANA MARÍA Marshall Jacqueline Robles NP Jun 03, 2020 12:06
--- NOTE | 2020-06-03 13:52 | NUR ---
CASE MANAGEMENT: Faxed CM review and clinical info (face sheet /DC summary/ H&P / ER MD notes / progress notes / imaging report ) to [facility] @ [phone] and [facility] @ [phone].
== END 2020-06-01 15:55 | disposition home or self-care (01) | DRG 241 ==
LOC: EDBD 22:54 → EMR 23:02 → 3E 06-01 01:00 → EDBEDREQ 06-01 01:15 → 3E 06-01 01:29
DX: K27.9 Peptic ulcer, site unspecified, unspecified as acute or chronic, without hemorrhage or perforation (principal); K21.9 Gastro-esophageal reflux disease without esophagitis; R10.9 Unspecified abdominal pain; F19.10 Other psychoactive substance abuse, uncomplicated; E87.1 Hypo-osmolality and hyponatremia; E87.6 Hypokalemia; F12.10 Cannabis abuse, uncomplicated; K29.70 Gastritis, unspecified, without bleeding
CPT/HCPCS: 36415; 74018; 80053; 80307; 81003; 82550; 83690; 83735; 83935; 84100; 84300; 84484; 85025; 93005; 96361; 96374; 96375; 99285; J2765; J7030

== ENCOUNTER 2020-06-02 18:30 | Emergency (ER) | payer OTHER ==
[~2020-06-02] VITALS: Ht 170.2 cm; Wt 81.6 kg
[~2020-06-02 18:30] MED LIST changes: +MYLANTA MAXIMU355 ML PO; +PROTONIX40 MG ORAL
[2020-06-02] MEDS ORDERED: Mylanta II UD 30ml ORAL ONE (19:00)
[2020-06-02] MEDS ORDERED: Lidocaine 2% Visc 15ml soln ORAL ONE (19:00)
--- NOTE | 2020-06-02 19:00 | NUR ---
ED Nurse Note: ambulated to ed from home c/o epigastric pain and nausea x5 days. patient discharged yesterday from [facility] for same reason. changed into gown; attached to monitor. patient ao4 with no acute distress. vitals stable. all safety measures met.
--- NOTE | 2020-06-02 19:08 | Emergency Room Report ---
History of Present Illness General Chief Complaint: Chest Pain Source: Patient Present Illness HPI Patient is complaining of 2 days of epigastric pain. Radiates up into his chest. He also feels it somewhat in his lungs. He took Mylanta 2 days ago and says it did not help. He is not taking omeprazole and Pepcid which has been prescribed for him in the past. He was most recently admitted to the hospital for hyponatremia. At that time he was complaining about pain in his abdomen. His tox screen at that time was positive for amphetamines. He states that he has not been using any amphetamines since that time. The pain is rated 9/10. It is not exertional. The patient complains of nausea without vomiting. Patient was on Seroquel 50 mg as needed and Lexapro many months ago. The p atient denies suicidal ideation. He does feel anxious. No fevers, chills, sore throat, chest pain, palpitations, diarrhea, dysuria, shortness of breath, joint pain, rashes, visual changes, dizziness, headache. 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 Reviewed Nursing Documentation: PMH: Agreed; PSxH: Agreed Nursing Documentation-PMH Hx Gastrointestinal Problems: Yes - abd pain, gastritis, appendectomy Review of Systems All Other Systems: negative except mentioned in HPI Physical Exam Vital Signs Date Time Temp Pulse Resp B/P (MAP) Pulse Ox O2 Delivery O2 Flow Rate FiO2 06/02/20 18:41 98.8 95 19 129/84 (99) 96 Room Air Sp02 EP Interpretation: reviewed, normal General Appearance: well appearing, no apparent distress, GCS 15 Head: normocephalic Eyes: bilateral eye PERRL, bilateral eye EOMI, bilateral eye Scleral Injection ENT: moist mucus membranes Neck: supple Respiratory: chest non-tender, lungs clear, normal breath sounds Cardiovascular #1: regular rate, rhythm Cardiovascular #2: 2+ radial (R) Gastrointestinal: normal inspection, normal bowel sounds, no mass, non- distended, no guarding, no rebound, tenderness - Epigastric area reported Genitourinary: no CVA tenderness Musculoskeletal: back normal, normal range of motion, no calf tenderness, gait/station normal Neurologic: alert, oriented x3, grossly normal Psychiatric: no suicidal/homicidal ideation, depressed affect - Slightly anxious also, flat affect Skin: no rash, warm/dry Medical Decision Making Diagnostic Impression: Primary Impression: Epigastric pain Additional Impression: Amphetamine abuse ER Course Patient presents with epigastric pain. Most recently was admitted for similar complaints and hyponatremia. Differential includes cardiac cause, gastritis, pancreatitis, GERD, anxiety, electrolyte imbalance amongst others. Patient evaluated with EKG and labs. Most recently imaging has been done which has been normal. Patient will be treated with IV Pepcid, Mylanta and viscous lidocaine and Vistaril. Patient labs unremarkable except for positive THC and amphetamines and tox screen. Prior chest x-ray and abdomen film reviewed. Patient ambulatory to the bathroom and states that the pain is slightly decreased. Patient sleeping. Awakened and discussed need for stopping methamphetamine and psychiatric follow up. No medical emergency at this time. Patient stable for outpatient observation and treatment. Laboratory Tests Test 06/02/20 19:11 06/02/20 19:30 White Blood Count 6.4 K/UL (4.8-10.8) Red Blood Count 5.09 M/UL (4.70-6.10) Hemoglobin 14.9 G/DL (14.2-18.0) Hematocrit 44.4 % (42.0-52.0) Mean Corpuscular Volume 87 FL (80-99) Mean Corpuscular Hemoglobin 29.4 PG (27.0-31.0) Mean Corpuscular Hemoglobin Concent 33.6 G/DL (32.0-36.0) Red Cell Distribution Width 12.8 % (11.6-14.8) Platelet Count 240 K/UL (150-450) Mean Platelet Volume 7.7 FL (6.5-10.1) Neutrophils (%) (Auto) 64.3 % (45.0-75.0) Lymphocytes (%) (Auto) 22.7 % (20.0-45.0) Monocytes (%) (Auto) 9.0 % (1.0-10.0) Eosinophils (%) (Auto) 2.9 % (0.0-3.0) Basophils (%) (Auto) 0.9 % (0.0-2.0) Prothrombin Time 11.5 SEC (9.30-11.50) Prothrombin Time INR 1.0 (0.9-1.1) Activated Partial Thromboplast Time 31 SEC (23-33) Sodium Level 137 MMOL/L (136-145) Potassium Level 3.6 MMOL/L (3.5-5.1) Chloride Level 103 MMOL/L (98-107) Carbon Dioxide Level 29 MMOL/L (21-32) Anion Gap 5 mmol/L (5-15) Blood Urea Nitrogen 9 mg/dL (7-18) Creatinine 1.2 MG/DL (0.55-1.30) Estimated Glomerular Filtration Rate > 60 mL/min (>60) Glucose Level 102 MG/DL (74-106) Calcium Level 8.5 MG/DL (8.5-10.1) Total Bilirubin 0.7 MG/DL (0.2-1.0) Aspartate Amino Transferase (AST) 22 U/L (15-37) Alanine Aminotransferase (ALT) 38 U/L (12-78) Alkaline Phosphatase 94 U/L (46-116) Total Creatine Kinase 134 U/L (26-308) Troponin I 0.000 ng/mL (0.000-0.056) Pro-B-Type Natriuretic Peptide 31 pg/mL (0-125) Total Protein 7.5 G/DL (6.4-8.2) Albumin 3.9 G/DL (3.4-5.0) Globulin 3.6 g/dL Albumin/Globulin Ratio 1.1 (1.0-2.7) Urine Color Yellow Urine Appearance Slightly cloudy Urine pH 7 (4.5-8.0) Urine Specific [place] 1.015 (1.005-1.035) Urine Protein 2+ (NEGATIVE) H Urine Glucose (UA) Negative (NEGATIVE) Urine Ketones 2+ (NEGATIVE) H Urine Blood Negative (NEGATIVE) Urine Nitrite Negative (NEGATIVE) Urine Bilirubin Negative (NEGATIVE) Urine Urobilinogen 1 MG/DL (0.0-1.0) H Urine Leukocyte Esterase Negative (NEGATIVE) Urine RBC 0-2 /HPF (0 - 0) H Urine WBC 0 /HPF (0 - 0) Urine Squamous Epithelial Cells None /LPF (NONE/OCC) Urine Amorphous Sediment Many /LPF (NONE) H Urine Bacteria Few /HPF (NONE) Urine Opiates Screen Negative (NEGATIVE) Urine Barbiturates Screen Negative (NEGATIVE) Phencyclidine (PCP) Screen Negative (NEGATIVE) Urine Amphetamines Screen Positive (NEGATIVE) H Urine Benzodiazepines Screen Negative (NEGATIVE) Urine Cocaine Screen Negative (NEGATIVE) Urine Marijuana (THC) Screen Positive (NEGATIVE) H Rhythm Strip Diag. Results EP Interpretation: yes Rhythm: NSR, no PVC's, no ectopy Last Vital Signs Date Time Temp Pulse Resp B/P (MAP) Pulse Ox O2 Delivery O2 Flow Rate FiO2 06/02/20 22:28 98.8 95 19 129/84 96 Room Air Status: improved Disposition: HOME, SELF-CARE Condition: Improved Scripts Famotidine* (Pepcid 20mg tablet*) 20 Mg Tablet 20 MG ORAL DAILY for Gerd, #30 TAB 0 Refills Prov: Holden Mitchell MD 06/02/20 Holden Mitchell MD Jun 02, 2020 19:08
--- NOTE | 2020-06-02 19:10 | NUR ---
ED Nurse Note: iv access established. blood collected; sent down to lab. unable to collect urine at this time; states will provide when able; ermd aware. ekg done at bedside by mikhail
[2020-06-02 19:21] VITALS: BP 129/84
[2020-06-02 19:24] LABS: BASOPHILS % (AUTO) 0.9 % (0.0-2.0); EOSINOPHILS % (AUTO) 2.9 % (0.0-3.0); HEMATOCRIT 44.4 % (42.0-52.0); HEMOGLOBIN 14.9 G/DL (14.2-18.0); LYMPHOCYTES % (AUTO) 22.7 % (20.0-45.0); MEAN CORPUSCULAR VOLUME 87 FL (80-99); NEUTROPHILS % (AUTO) 64.3 % (45.0-75.0); PLATELET COUNT 240 K/UL (150-450); RED BLOOD COUNT 5.09 M/UL (4.70-6.10); RED CELL DISTRIBUTION WIDTH 12.8 % (11.6-14.8); WHITE BLOOD COUNT 6.4 K/UL (4.8-10.8)
[2020-06-02 19:40] LABS: ANION GAP 5 mmol/L (5-15); BLOOD UREA NITROGEN 9 mg/dL (7-18); CALCIUM 8.5 MG/DL (8.5-10.1); CARBON DIOXIDE 29 MMOL/L (21-32); CHLORIDE 103 MMOL/L (98-107); CREATININE 1.2 MG/DL (0.55-1.30); POTASSIUM 3.6 MMOL/L (3.5-5.1); SODIUM 137 MMOL/L (136-145)
[2020-06-02 19:51] LABS: ALANINE AMINOTRANSFERASE 38 U/L (12-78); ALBUMIN 3.9 G/DL (3.4-5.0); ALBUMIN/GLOBULIN RATIO 1.1 (1.0-2.7); ALKALINE PHOSPHATASE 94 U/L (46-116); ASPARTATE AMINO TRANSFERASE 22 U/L (15-37); BILIRUBIN,TOTAL 0.7 MG/DL (0.2-1.0); CREATINE KINASE 134 U/L (26-308)
[2020-06-02 20:08] LABS: APPEARANCE,URINE SLIGHTLY CLOUDY; BILIRUBIN, URINE NEGATIVE (NEGATIVE); GLUCOSE, URINE (UA) NEGATIVE (NEGATIVE); KETONES,URINE 2+ (NEGATIVE); LEUKOCYTE ESTERASE ,URINE NEGATIVE (NEGATIVE); NITRITE,URINE NEGATIVE (NEGATIVE); PH,URINE 7 (4.5-8.0); PROTEIN,URINE 2+ (NEGATIVE); UROBILINOGEN,URINE 1 MG/DL (0.0-1.0)
[2020-06-02 20:36] LABS: COLOR,URINE YELLOW
[2020-06-02 22:00] VITALS: BP 131/87
[2020-06-02] MEDS ORDERED: FAMOTIDINE20 MG ORAL (22:23)
[2020-06-02 22:28] VITALS: BP 129/84
== END 2020-06-02 22:30 | disposition home or self-care (01) ==
LOC: EMR 19:26
DX: F15.10 Other stimulant abuse, uncomplicated (principal); R10.13 Epigastric pain; Z87.891 Personal history of nicotine dependence; Z90.89 Acquired absence of other organs; F12.90 Cannabis use, unspecified, uncomplicated
CPT/HCPCS: 36415; 80053; 80307; 81003; 82550; 83880; 84484; 85025; 85610; 85730; 93005; 96374; S0028; Z7502; 99284

== ENCOUNTER 2020-06-04 19:19 | Emergency (ER) | payer OTHER ==
[~2020-06-04] VITALS: Ht 167.6 cm; Wt 83.9 kg
[2020-06-04] MEDS ORDERED: Lidocaine 2% Visc 15ml soln ORAL ONE (19:30)
[2020-06-04] MEDS ORDERED: Mylanta II UD 30ml ORAL ONE (19:30)
[2020-06-04] MEDS ORDERED: Dicyclomine HCl 10mg/5ml oral soln ORAL ONE (19:30)
--- NOTE | 2020-06-04 19:45 | Emergency Room Report ---
History of Present Illness General Chief Complaint: Abdominal Pain Source: Patient Present Illness HPI Disclaimer: Please note that this report is being documented using [employer] technology. This can lead to erroneous entry secondary to incorrect interpretation by the dictating instrument. HPI: Is a 30-year-old male history of gastritis methamphetamine abuse presents for evaluation of epigastric pain. Patient was recently discharged from the hospital for hyponatremia. He states he ate a burger for lunch today and developed epigastric abdominal pain. Rated to the right chest as it usually does. Denies nausea, vomiting or diarrhea. Denies dysuria hematuria. Denies alcohol or drug use today. Similar to her prior episodes of gastritis. Has not been taking his antacids. Has not followed up with PMD. PMH: Gastritis, methamphetamine abuse, hyponatremia PSH: Reviewed Allergies: Reviewed Social Hx: Reviewed Allergies: Coded Allergies: No Known Allergies (Unverified , 07/28/19) COVID-19 Screening Contact w/high risk pt: No Experienced COVID-19 symptoms?: No COVID-19 Testing performed TAX MANAGER PUBLIC: No Nursing Documentation-PMH Hx Gastrointestinal Problems: Yes - abd pain, gastritis, appendectomy Review of Systems All Other Systems: negative except mentioned in HPI Physical Exam Vital Signs Date Time Temp Pulse Resp B/P (MAP) Pulse Ox O2 Delivery O2 Flow Rate FiO2 06/04/20 19:22 98.4 100 18 128/81 (97) 98 Room Air General: Awake and alert, no acute distress HEENT: NC/AT. EOMI. Cardiovascular: RRR. S1 and S2 normal. No murmur appreciated Resp: Normal work of breathing. No cough, wheezing or crackles appreciated Abdomen: Abdomen is soft, nondistended. Tender palpation in the epigastrium. No guarding. No mass. Negative Rivas's. No rebound. : Normal-appearing genitalia. Testicles in anatomic position. No edema, symmetrical in size. Nontender. Skin: Intact. No abrasions, laceration or rash over the exposed skin MSK: Normal tone and bulk. Moving all extremities. No obvious deformity. Neuro: Awake and alert. Mentating appropriately. Medical Decision Making Diagnostic Impression: Primary Impression: Amphetamine abuse Additional Impression: Gastritis ER Course 30-year-old male history of gastritis and substance abuse presents for evaluation of epigastric abdominal pain beginning after eating a burger earlier today. Patient was recently discharged from the hospital. He has been seen at multiple facilities for same presentation. Labs show positive for amphetamines but troponin and lipase are within normal limits as are the remainder of the patient's blood work. EKG is nonischemic. Likely his symptoms are related to his chronic gastritis and amphetamine abuse. Stable for outpatient follow-up. Instructed again to follow-up with his PMD and to take his prescribed medications. Laboratory Tests Test 06/04/20 19:33 White Blood Count 7.6 K/UL (4.8-10.8) Red Blood Count 5.26 M/UL (4.70-6.10) Hemoglobin 15.6 G/DL (14.2-18.0) Hematocrit 46.9 % (42.0-52.0) Mean Corpuscular Volume 89 FL (80-99) Mean Corpuscular Hemoglobin 29.6 PG (27.0-31.0) Mean Corpuscular Hemoglobin Concent 33.2 G/DL (32.0-36.0) Red Cell Distribution Width 12.8 % (11.6-14.8) Platelet Count 257 K/UL (150-450) Mean Platelet Volume 7.5 FL (6.5-10.1) Neutrophils (%) (Auto) 58.3 % (45.0-75.0) Lymphocytes (%) (Auto) 25.6 % (20.0-45.0) Monocytes (%) (Auto) 12.0 % (1.0-10.0) H Eosinophils (%) (Auto) 3.2 % (0.0-3.0) H Basophils (%) (Auto) 0.9 % (0.0-2.0) Urine Color Yellow Urine Appearance Slightly cloudy Urine pH 6.5 (4.5-8.0) Urine Specific [place] 1.015 (1.005-1.035) Urine Protein 2+ (NEGATIVE) H Urine Glucose (UA) Negative (NEGATIVE) Urine Ketones Negative (NEGATIVE) Urine Blood Negative (NEGATIVE) Urine Nitrite Negative (NEGATIVE) Urine Bilirubin Negative (NEGATIVE) Urine Urobilinogen Normal MG/DL (0.0-1.0) Urine Leukocyte Esterase Negative (NEGATIVE) Urine RBC 0-2 /HPF (0 - 0) H Urine WBC 0-2 /HPF (0 - 0) Urine Squamous Epithelial Cells None /LPF (NONE/OCC) Urine Amorphous Sediment Moderate /LPF (NONE) H Urine Bacteria Few /HPF (NONE) Sodium Level 141 MMOL/L (136-145) Potassium Level 4.2 MMOL/L (3.5-5.1) Chloride Level 104 MMOL/L (98-107) Carbon Dioxide Level 30 MMOL/L (21-32) Anion Gap 7 mmol/L (5-15) Blood Urea Nitrogen 11 mg/dL (7-18) Creatinine 1.2 MG/DL (0.55-1.30) Estimated Glomerular Filtration Rate > 60 mL/min (>60) Glucose Level 116 MG/DL (74-106) H Calcium Level 9.4 MG/DL (8.5-10.1) Total Bilirubin 0.3 MG/DL (0.2-1.0) Aspartate Amino Transferase (AST) 25 U/L (15-37) Alanine Aminotransferase (ALT) 37 U/L (12-78) Alkaline Phosphatase 108 U/L (46-116) Troponin I 0.000 ng/mL (0.000-0.056) Total Protein 7.3 G/DL (6.4-8.2) Albumin 4.0 G/DL (3.4-5.0) Globulin 3.3 g/dL Albumin/Globulin Ratio 1.2 (1.0-2.7) Lipase 135 U/L (73-393) Urine Opiates Screen Negative (NEGATIVE) Urine Barbiturates Screen Negative (NEGATIVE) Phencyclidine (PCP) Screen Negative (NEGATIVE) Urine Amphetamines Screen Positive (NEGATIVE) H Urine Benzodiazepines Screen Negative (NEGATIVE) Urine Cocaine Screen Negative (NEGATIVE) Urine Marijuana (THC) Screen Positive (NEGATIVE) H Serum Alcohol < 3 mg/dL EKG Diagnostic Results Troponin ordered: Yes When was troponin ordered?: Jun 04, 2020 EKG Time: 20:57 Rate: normal Rhythm: NSR ST Segments: no acute changes Other Impression Sinus rhythm, normal axis, normal intervals, no ST segment changes Rhythm Strip Diag. Results Rhythm Strip Time: 20:57 EP Interpretation: yes Rate: 85 Rhythm: NSR, no PVC's, no ectopy Last Vital Signs Date Time Temp Pulse Resp B/P (MAP) Pulse Ox O2 Delivery O2 Flow Rate FiO2 06/04/20 19:22 98.4 100 18 128/81 (97) 98 Room Air Disposition: HOME, SELF-CARE Condition: Stable Jaspal Hawk MD Jun 04, 2020 19:45
--- NOTE | 2020-06-04 19:47 | NUR ---
ED Nurse Note: Patient walked in from home c/o mid epigastric aching pain 03/19 nonradiating, pt reports he was discharged [place] [facility] [place] for the same symptoms. Patient reports he ate a burger. Patient states he was unable to see primary physician for follow up after discharge. Patient changed into gown and placed on cardiac care nurse. ERMD at bedside. No acute distress noted during assessment.
[2020-06-04 19:48] VITALS: BP 125/80
[2020-06-04 19:59] LABS: BILIRUBIN, URINE NEGATIVE (NEGATIVE); GLUCOSE, URINE (UA) NEGATIVE (NEGATIVE); KETONES,URINE NEGATIVE (NEGATIVE); LEUKOCYTE ESTERASE ,URINE NEGATIVE (NEGATIVE); NITRITE,URINE NEGATIVE (NEGATIVE); PH,URINE 6.5 (4.5-8.0); PROTEIN,URINE 2+ (NEGATIVE); UROBILINOGEN,URINE NORMAL MG/DL (0.0-1.0)
[2020-06-04 20:00] LABS: BASOPHILS % (AUTO) 0.9 % (0.0-2.0); EOSINOPHILS % (AUTO) 3.2 % (0.0-3.0); HEMATOCRIT 46.9 % (42.0-52.0); HEMOGLOBIN 15.6 G/DL (14.2-18.0); LYMPHOCYTES % (AUTO) 25.6 % (20.0-45.0); MEAN CORPUSCULAR VOLUME 89 FL (80-99); NEUTROPHILS % (AUTO) 58.3 % (45.0-75.0); PLATELET COUNT 257 K/UL (150-450); RED BLOOD COUNT 5.26 M/UL (4.70-6.10); RED CELL DISTRIBUTION WIDTH 12.8 % (11.6-14.8); WHITE BLOOD COUNT 7.6 K/UL (4.8-10.8)
[2020-06-04 20:13] LABS: ANION GAP 7 mmol/L (5-15); BLOOD UREA NITROGEN 11 mg/dL (7-18); CALCIUM 9.4 MG/DL (8.5-10.1); CARBON DIOXIDE 30 MMOL/L (21-32); CHLORIDE 104 MMOL/L (98-107); CREATININE 1.2 MG/DL (0.55-1.30); POTASSIUM 4.2 MMOL/L (3.5-5.1); SODIUM 141 MMOL/L (136-145)
[2020-06-04 20:15] LABS: ALANINE AMINOTRANSFERASE 37 U/L (12-78); ALBUMIN/GLOBULIN RATIO 1.2 (1.0-2.7); ALKALINE PHOSPHATASE 108 U/L (46-116); BILIRUBIN,TOTAL 0.3 MG/DL (0.2-1.0)
[2020-06-04 20:20] LABS: APPEARANCE,URINE SLIGHTLY CLOUDY; COLOR,URINE YELLOW
[2020-06-04 20:23] LABS: ASPARTATE AMINO TRANSFERASE 25 U/L (15-37)
[2020-06-04 21:06] VITALS: BP 122/75
--- NOTE | 2020-06-04 21:06 | NUR ---
ER DISCHARGE NOTE: Patient is cleared to be discharged per ERMD, pt is aox4, on room air, with stable vital signs. pt was given dc instructions, pt was able to verbalize understanding, pt id band and iv site removed intact without complications. pt is able to ambulate with steady gait. pt took all belongings. pt stable upon discharge.
== END 2020-06-04 21:06 | disposition home or self-care (01) ==
LOC: EMR 20:05
DX: K29.70 Gastritis, unspecified, without bleeding (principal); F15.10 Other stimulant abuse, uncomplicated; Z90.89 Acquired absence of other organs
CPT/HCPCS: 36415; 80053; 80307; 81003; 83690; 84484; 85025; 93005; 96374; G0480; J2405; Z7502; 99284

== ENCOUNTER 2020-06-09 04:24 | Emergency (ER) | payer OTHER ==
[~2020-06-09] VITALS: Ht 167.6 cm; Wt 83.9 kg
--- NOTE | 2020-06-09 04:51 | Emergency Room Report ---
History of Present Illness General Chief Complaint: Abdominal Pain Source: Patient Present Illness HPI Is a 30-year-old male with a history of gastritis and methamphetamine abuse. He presents with complaint of abdominal pain. Pain is epigastric in nature. Onset tonight. He has been here numerous times for the same thing. He said he took Maalox without any relief. Patient has a prescription for omeprazole but never filled it. Pain is sharp in nature. No nausea no vomiting. No diarrhea. Pain is 8 out of 10. No radiation. Denies any other complaint. 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: Yes COVID-19 Screening: Negative COVID-19 COVID-19 Testing Source: 04/2020 Patient History Past Medical History: see triage record, old chart reviewed Past Surgical History: none Pertinent Family History: none Social History: Reports: drug use Immunizations: other Reviewed Nursing Documentation: PMH: Agreed; PSxH: Agreed Nursing Documentation-PMH Past Medical History: No History, Except For Hx Gastrointestinal Problems: Yes - abd pain, gastritis, appendectomy Review of Systems Eye: Denies: eye pain, blurred vision ENT: Denies: ear pain, nose congestion, throat swelling Respiratory: Denies: cough, shortness of breath Cardiovascular: Denies: chest pain, palpitations Gastrointestinal: Reports: abdominal pain; Denies: diarrhea, nausea, vomiting Musculoskeletal: Denies: back pain, joint pain Skin: Denies: rash Neurological: Denies: headache, numbness Endocrine: Denies: increased thirst, increased urine Hematologic/Lymphatic: Denies: easy bruising All Other Systems: negative except mentioned in HPI Physical Exam Vital Signs Date Time Temp Pulse Resp B/P (MAP) Pulse Ox O2 Delivery O2 Flow Rate FiO2 06/09/20 04:25 97.9 110 16 139/87 (104) 97 Room Air Vitals unremarkable Sp02 EP Interpretation: reviewed, normal General Appearance: well appearing, no apparent distress, alert Head: normocephalic, atraumatic Eyes: bilateral eye PERRL, bilateral eye EOMI ENT: hearing grossly normal, normal pharynx Neck: full range of motion, supple, no meningismus Respiratory: chest non-tender, lungs clear, normal breath sounds Cardiovascular #1: regular rate, rhythm, no murmur Gastrointestinal: no mass, no organomegaly, no bruit, non-distended, abnormal bowel sounds - Increased, tenderness - Epigastric Musculoskeletal: back normal, normal range of motion, gait/station normal Psychiatric: mood/affect normal Medical Decision Making Diagnostic Impression: Primary Impression: Amphetamine abuse Additional Impression: Epigastric pain ER Course This patient presents with epigastric pain. No evidence of appendicitis obstruction. No evidence of acute abdomen. He has been here 10 times this month already. Will discharge home. CT/MRI/US Diagnostic Results CT/MRI/US Diagnostic Results : Imaging Test Ordered: CT abdomen and pelvis Impression Read by radiologist. umbilical hernia. otherwise Negative. Last Vital Signs Date Time Temp Pulse Resp B/P (MAP) Pulse Ox O2 Delivery O2 Flow Rate FiO2 06/09/20 04:25 97.9 110 16 139/87 (104) 97 Room Air Status: improved Disposition: HOME, SELF-CARE Condition: Stable Scripts Omeprazole (OMEPRAZOLE) 40 Mg Capsule. 40 MG ORAL TWICE A DAY, #30 CAP Prov: Baldemar Butt MD 06/09/20 Referrals: [facility] ([facility]) Additional Instructions: Stop using drugs. Follow-up with your doctor in 7 days. Go to rehab. Return if symptoms worsen. Baldemar Butt MD Jun 09, 2020 04:51
[2020-06-09 04:57] VITALS: BP 132/85
[2020-06-09 05:40] VITALS: BP 123/79
[2020-06-09] MEDS ORDERED: OMEPRAZOLE40 M1 ORAL (05:40)
--- NOTE | 2020-06-09 05:46 | Diagnostic Imaging Report ---
EXAM: CT Abdomen and Pelvis Without Intravenous Contrast CLINICAL HISTORY: ABD PAIN TECHNIQUE: Axial computed tomography images of the abdomen and pelvis without intravenous contrast. CTDI is 7.90 mGy and DLP is 425.80 mGy-cm. One or more of the following dose reduction techniques were used: automated exposure control, adjustment of the mA and/or kV according to patient size, use of iterative reconstruction technique. COMPARISON: No relevant prior studies available. FINDINGS: Lung bases: Unremarkable. No mass. No consolidation. ABDOMEN: Liver: Unremarkable. Gallbladder and bile ducts: Unremarkable. No calcified stones. No ductal dilation. Pancreas: Unremarkable. No ductal dilation. Spleen: Unremarkable. No splenomegaly. Adrenals: Unremarkable. No mass. Kidneys and ureters: Unremarkable. No obstructing stones. No hydronephrosis. Stomach and bowel: Mild diverticulosis, without acute diverticulitis. No obstruction. PELVIS: Appendix: Nonvisualized appendix however, no secondary signs of acute appendicitis. Bladder: Unremarkable. No stones. Reproductive: Unremarkable as visualized. ABDOMEN and PELVIS: Intraperitoneal space: Unremarkable. No free air. No significant fluid collection. Bones/joints: No acute fracture. No dislocation. Soft tissues: Small fat-containing left inguinal hernia. Vasculature: Unremarkable. No abdominal aortic aneurysm. Lymph nodes: Unremarkable. No enlarged lymph nodes. IMPRESSION: 1. Mild diverticulosis, without acute diverticulitis. No small bowel obstruction. No CT evidence of gastroenteritis. No CT evidence of colitis. 2. Nonvisualized appendix however, no secondary signs of acute appendicitis. 3. Small fat-containing left inguinal hernia. 4. No hydronephrosis or nephrolithiasis. No obstructive uropathy.
[2020-06-09] MEDS ORDERED: QUETIAPINE FUMA25 MG ORAL (15:04)
[2020-06-09] MEDS ORDERED: LEXAPRO10 MG ORAL (15:05)
[2020-06-09] MEDS ORDERED: FAMOTIDINE20 MG ORAL (15:06)
== END 2020-06-09 05:40 | disposition home or self-care (01) ==
LOC: EMR 04:47
DX: F15.10 Other stimulant abuse, uncomplicated (principal); R10.13 Epigastric pain; K42.9 Umbilical hernia without obstruction or gangrene; Z90.89 Acquired absence of other organs; K57.90 Diverticulosis of intestine, part unspecified, without perforation or abscess without bleeding
CPT/HCPCS: 74176; Z7502; 99284

== ENCOUNTER 2020-06-09 12:19 | Emergency (ER) | payer OTHER ==
[~2020-06-09] VITALS: Ht 167.6 cm; Wt 86.2 kg
[2020-06-09] MEDS ORDERED: Mylanta II UD 30ml ORAL ONE (13:15)
[2020-06-09] MEDS ORDERED: Acetaminophen 500mg (ES) tab ORAL ONE (13:15)
[2020-06-09] MEDS ORDERED: Lidocaine 2% Visc 15ml soln ORAL ONE (13:15)
--- NOTE | 2020-06-09 13:55 | Emergency Room Report ---
History of Present Illness General Chief Complaint: Abdominal Pain Source: Patient Present Illness HPI Patient returns complaining of abdominal pain. This started this morning. He has been seen multiple times for the same complaint. Apparently he has not filled his Pepcid. He did take Mylanta earlier and it helped minimally. In the past he is also been using methamphetamine. When asked about whether his screen will be positive he says no. (He is somewhat hesitant and is answer. Later review of visit earlier today was + for amphetamine.) He rates the pain 9/10 and a pulling pulsating feeling in his epigastric area. It occasionally rates it to his chest but he denies this at this moment. Patient does feel anxious. He denies suicidal or homicidal ideation. He denies vomiting, hematemesis, melena or hematochezia. The patient has presented 10 times this month for similar complaints. Occasionally complains of chest pain. He is denying chest pain at this time. Is carried the diagnosis of gastritis and amphetamine abuse. In the past he has been prescribed omeprazole and Pepcid. During previous visits he is not taking these. The patient reports several years ago he was taking Seroquel 50 mg as needed and Lexapro. During previous visits he was suggested that he follow-up with Ofelia Anderson. He states he has not done so. Patient denies exposure to Covid positive contacts. No sore throat, chest pain, palpitations, dysuria, shortness of breath, joint pain, rashes, visual changes, dizziness, headache. 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 Reviewed Nursing Documentation: PMH: Agreed; PSxH: Agreed Nursing Documentation-PM Past Medical History: No History, Except For Hx Gastrointestinal Problems: Yes - abd pain, gastritis, appendectomy Review of Systems All Other Systems: negative except mentioned in HPI Physical Exam Vital Signs Date Time Temp Pulse Resp B/P (MAP) Pulse Ox O2 Delivery O2 Flow Rate FiO2 06/09/20 12:29 99.0 121 16 142/84 (103) 94 Room Air Sp02 EP Interpretation: reviewed, normal General Appearance: well appearing, no apparent distress, GCS 15 Head: normocephalic Eyes: bilateral eye PERRL, bilateral eye EOMI, bilateral eye Scleral Injection ENT: moist mucus membranes Neck: supple Respiratory: lungs clear, normal breath sounds Cardiovascular #1: regular rate, rhythm Cardiovascular #2: 2+ radial (R) Gastrointestinal: normal inspection, normal bowel sounds, no mass, non- distended, no guarding, no rebound, tenderness - epigastric Genitourinary: no CVA tenderness Musculoskeletal: back normal, normal range of motion, gait/station normal Neurologic: alert, oriented x3, grossly normal Psychiatric: mood/affect normal Skin: no rash, warm/dry Medical Decision Making Diagnostic Impression: Primary Impression: Epigastric pain Additional Impressions: Amphetamine abuse Elevated CK ER Course Patient presents with epigastric pain since this morning. Differential includes gastritis, pancreatitis, peptic ulcer disease, amphetamine abuse, anxiety amongst others. Evaluation with labs without imaging studies or EKG as previous EKGs and abdominal films have been negative. Patient given Pepcid, Mylanta and viscous lidocaine. Labs remarkable for normal CBC. Normal CMP. Elevated CPK. Tox screen positive for amphetamines and THC. These results were discussed with the patient. He has normal renal function. Patient's pain is decreased. Discussed the importance of following up with methamphetamine Anonymous or other 12-step programs. Discussed the importance of abstention from amphetamines. Also discussed the need to follow-up with the [facility]. Patient given a dose of Seroquel. At discharge patient's pain is resolved. Prescriptions for Pepcid, Seroquel and Lexapro provided. Patient stable for outpatient observation and treatment. Laboratory Tests Test 06/09/20 13:30 White Blood Count 8.6 K/UL (4.8-10.8) Red Blood Count 5.50 M/UL (4.70-6.10) Hemoglobin 16.5 G/DL (14.2-18.0) Hematocrit 49.5 % (42.0-52.0) Mean Corpuscular Volume 90 FL (80-99) Mean Corpuscular Hemoglobin 29.9 PG (27.0-31.0) Mean Corpuscular Hemoglobin Concent 33.3 G/DL (32.0-36.0) Red Cell Distribution Width 12.7 % (11.6-14.8) Platelet Count 298 K/UL (150-450) Mean Platelet Volume 7.9 FL (6.5-10.1) Neutrophils (%) (Auto) 64.0 % (45.0-75.0) Lymphocytes (%) (Auto) 23.2 % (20.0-45.0) Monocytes (%) (Auto) 8.3 % (1.0-10.0) Eosinophils (%) (Auto) 3.6 % (0.0-3.0) H Basophils (%) (Auto) 0.9 % (0.0-2.0) Urine Color Pale yellow Urine Appearance Cloudy Urine pH 8 (4.5-8.0) Urine Specific [place] 1.010 (1.005-1.035) Urine Protein Negative (NEGATIVE) Urine Glucose (UA) Negative (NEGATIVE) Urine Ketones Negative (NEGATIVE) Urine Blood Negative (NEGATIVE) Urine Nitrite Negative (NEGATIVE) Urine Bilirubin Negative (NEGATIVE) Urine Urobilinogen Normal MG/DL (0.0-1.0) Urine Leukocyte Esterase Negative (NEGATIVE) Sodium Level 140 MMOL/L (136-145) Potassium Level 3.9 MMOL/L (3.5-5.1) Chloride Level 103 MMOL/L (98-107) Carbon Dioxide Level 30 MMOL/L (21-32) Anion Gap 7 mmol/L (5-15) Blood Urea Nitrogen 11 mg/dL (7-18) Creatinine 1.3 MG/DL (0.55-1.30) Estimated Glomerular Filtration Rate > 60 mL/min (>60) Glucose Level 102 MG/DL (74-106) Calcium Level 9.1 MG/DL (8.5-10.1) Total Bilirubin 0.3 MG/DL (0.2-1.0) Aspartate Amino Transferase (AST) 40 U/L (15-37) H Alanine Aminotransferase (ALT) 36 U/L (12-78) Alkaline Phosphatase 102 U/L (46-116) Total Creatine Kinase 1199 U/L (26-308) H Troponin I 0.000 ng/mL (0.000-0.056) Total Protein 7.5 G/DL (6.4-8.2) Albumin 4.2 G/DL (3.4-5.0) Globulin 3.3 g/dL Albumin/Globulin Ratio 1.3 (1.0-2.7) Lipase 106 U/L (73-393) Urine Opiates Screen Negative (NEGATIVE) Urine Barbiturates Screen Negative (NEGATIVE) Phencyclidine (PCP) Screen Negative (NEGATIVE) Urine Amphetamines Screen Positive (NEGATIVE) H Urine Benzodiazepines Screen Negative (NEGATIVE) Urine Cocaine Screen Negative (NEGATIVE) Urine Marijuana (THC) Screen Positive (NEGATIVE) H Last Vital Signs Date Time Temp Pulse Resp B/P (MAP) Pulse Ox O2 Delivery O2 Flow Rate FiO2 06/09/20 16:30 97.8 82 18 120/80 98 Room Air Status: improved Disposition: HOME, SELF-CARE Condition: Improved Scripts Famotidine* (Pepcid 20mg tablet*) 20 Mg Tablet 20 MG ORAL DAILY for Gerd, #30 TAB 0 Refills Prov: Holden Mitchell MD 06/09/20 Escitalopram Oxalate* (LEXAPRO*) 10 Mg Tablet 10 MG ORAL DAILY, #20 TAB Prov: Holden Mitchell MD 06/09/20 Quetiapine Fumarate* (SEROQUEL*) 25 Mg Tablet 25 MG ORAL DAILY, #20 TAB Prov: Holden Mitchell MD 06/09/20 Referrals: NOT CHOSEN IPA/,REFERRING (PCP) Holden Mitchell MD Jun 09, 2020 13:55
[2020-06-09 14:33] LABS: BASOPHILS % (AUTO) 0.9 % (0.0-2.0); EOSINOPHILS % (AUTO) 3.6 % (0.0-3.0); HEMATOCRIT 49.5 % (42.0-52.0); HEMOGLOBIN 16.5 G/DL (14.2-18.0); LYMPHOCYTES % (AUTO) 23.2 % (20.0-45.0); MEAN CORPUSCULAR VOLUME 90 FL (80-99); MONOCYTES % (AUTO) 8.3 % (1.0-10.0); PLATELET COUNT 298 K/UL (150-450); RED CELL DISTRIBUTION WIDTH 12.7 % (11.6-14.8); WHITE BLOOD COUNT 8.6 K/UL (4.8-10.8)
[2020-06-09 14:37] LABS: APPEARANCE,URINE CLOUDY; BILIRUBIN, URINE NEGATIVE (NEGATIVE); COLOR,URINE PALE YELLOW; GLUCOSE, URINE (UA) NEGATIVE (NEGATIVE); KETONES,URINE NEGATIVE (NEGATIVE); LEUKOCYTE ESTERASE ,URINE NEGATIVE (NEGATIVE); NITRITE,URINE NEGATIVE (NEGATIVE); PH,URINE 8 (4.5-8.0); PROTEIN,URINE NEGATIVE (NEGATIVE); UROBILINOGEN,URINE NORMAL MG/DL (0.0-1.0)
[2020-06-09 14:45] LABS: ANION GAP 7 mmol/L (5-15); BLOOD UREA NITROGEN 11 mg/dL (7-18); CALCIUM 9.1 MG/DL (8.5-10.1); CARBON DIOXIDE 30 MMOL/L (21-32); CHLORIDE 103 MMOL/L (98-107); CREATININE 1.3 MG/DL (0.55-1.30); POTASSIUM 3.9 MMOL/L (3.5-5.1); SODIUM 140 MMOL/L (136-145)
[2020-06-09 14:58] LABS: ALANINE AMINOTRANSFERASE 36 U/L (12-78); ALBUMIN 4.2 G/DL (3.4-5.0); ALBUMIN/GLOBULIN RATIO 1.3 (1.0-2.7); ALKALINE PHOSPHATASE 102 U/L (46-116); BILIRUBIN,TOTAL 0.3 MG/DL (0.2-1.0); CREATINE KINASE 1199 U/L (26-308)
[2020-06-09] MEDS ORDERED: QUETIAPINE FUMA25 MG ORAL (15:04)
[2020-06-09] MEDS ORDERED: LEXAPRO10 MG ORAL (15:05)
[2020-06-09 15:06] LABS: ASPARTATE AMINO TRANSFERASE 40 U/L (15-37)
[2020-06-09] MEDS ORDERED: FAMOTIDINE20 MG ORAL (15:06)
[2020-06-09 16:30] VITALS: BP 120/80
== END 2020-06-09 15:30 | disposition home or self-care (01) ==
LOC: EMR 12:50
DX: F15.10 Other stimulant abuse, uncomplicated (principal); R10.13 Epigastric pain; R74.8 Abnormal levels of other serum enzymes
CPT/HCPCS: 36415; 80053; 80307; 81003; 82550; 83690; 84484; 85025; J7030; S0028; Z7502; 99283

== ENCOUNTER 2020-06-12 09:44 | Emergency (ER) | payer OTHER ==
[~2020-06-12] VITALS: Ht 170.2 cm; Wt 80.7 kg
[~2020-06-12 09:44] MED LIST changes: +LEXAPRO10 MG ORAL; +QUETIAPINE FUMA25 MG ORAL
--- NOTE | 2020-06-12 09:52 | Emergency Room Report ---
History of Present Illness General Chief Complaint: To Be Triaged Source: Patient Present Illness HPI 30-year-old male with history of GERD, PUD, polysubstance abuse presents with complaint of acute on chronic epigastric abdominal pain. Has been non compliant with outpatient therapy. Has not filled prescriptions. Has not seen primary care doctor for referral to GI. He was seen at [facility] this morning and told everything was normal, however he has now coming to the emergency department at [facility] because "all his records are here". Patient is not currently homeless. He has been seen in the emergency department 11 times in the month of May for similar symptoms. Last ER visit was on 06/09/2020. Denies chest pain, shortness of breath, cough, fever, chills, hematuria, melena, hematochezia, dysuria, flank pain, saccular/penile pain, rash or other symptoms. The patient's symptoms were gradual onset, severity was moderate, duration since several months. Quality: Aching Past medical history: Substance abuse, peptic ulcer disease, GERD, dextrocardia, psychiatric disorder Past surgical history: Appendectomy Smoking: Denies Alcohol use: ++ Drug use: ++ Methamphetamines, ++ marijuana Review of systems: CONST: No fevers or chills, No night sweats PULMONARY: No productive cough, No shortness of breath CARDIAC: No chest pain, No palpitations GI: No vomiting, No diarrhea , No melena_or_BRBPR : No dysuria, No hematuria, No discharge NEURO: No new_focal_weakness_or_numbness, No confusion, No vision changes 14 point Review of Systems is otherwise negative except per HPI Physical Exam: GENERAL: Awake_alert_ nontoxic, no acute distress Spo2 98% on RA -normal EYES: Extraocular muscles are intact. Conjunctivae clear. Lids without swelling ENT: External nose and ear normal_in_appearance. Oropharynx clear. Head_atraumatic, Moist_oral_mucosa NECK: No JVD. No meningismus. No thyromegaly. Supple. Trachea midline RESP: Normal respiratory effort. Symmetric rise. No stridor. Clear_to_auscultation_No_rales_No_wheezes CARDIAC: Regular rate and regular rhytm. No_significant pedal edema. ABDOMEN: Soft. Nondistended. Nontender_No_rebound_or_guarding. MSK: Normal muscle tone, without rigidity. Extremities without asymmetric deformity or swelling. SKIN: Warm and dry. No visible cyanosis or pallor NEUROLOGIC: Alert, oriented x3. Motor_and_sensation_grossly_intact. No truncal ataxia. Gait_normal Psych: Normal mood and affect, normal judgment and insight - COORDINATION OF CARE Case was discussed with: Patient Any labs and imaging that were ordered were interpreted as part of the medical decision making: Previous records reviewed. Patient has been seen at [facility] 11 times within the past 1 month. He is noncompliant with his outpatient regimen. Previous CT scan on last ER visit 06/09/2020 showed nonstrangulated nonincarcerated left inguinal hernia. No obstruction. Medical Decision Making/Plan: Differential diagnosis includes cholecystitis, choledocholithiasis, hepatitis, small bowel obstruction, volvulus, AAA, pancreatitis, atypical appendicitis, gastroparesis, gastritis, peptic ulcer disease, among others. Patient is well appearing with stable vital signs. Abdominal exam is non peritoneal with no guarding or rebound. No incarcerated hernia on exam. Labs show no acute disease. Trop negative. EKG shows T wave inversions in the inferior leads, similar to previous. Patient is refusing to provide urine specimen denies symptoms. Actively endorses marijuana and meth. ED intervention included Bentyl, Viscous Lidocaine, and antiemetic with full resolution of symptoms. The patient denies any bloody stool and has no pain out of proportion to exam, and no significant risk factors for mesenteric ischemia such as atrial fibrillation or severe PAD/PVD (peripheral arterial / vascular disease), thus definitive workup to rule out mesenteric ischemia was not pursued. Patient is afebrile, without any significant tenderness in the RUQ, and a negative Holman sign. The patients presentation does not appear to be co nsistent with acute cholecystitis and thus definitive imaging to rule it out was not pursued. The patients symptoms are not consistent with ACS (acute coronary syndrome), symptoms are not exertional, EKG without obvious ischemic change. The patients symptoms significantly improved, exam upon discharge revealed a benign abdomen without any surgical or peritoneal signs , and tolerating oral fluids. The patient appears stable for discharge with abdominal_recheck_in_24_hours, and understand to return to the ED immediately if symptoms change or worsen. Allergies: Coded Allergies: No Known Allergies (Unverified , 12/19/19) COVID-19 Screening Contact w/high risk pt: No Experienced COVID-19 symptoms?: No Nursing Documentation-PMH Hx Gastrointestinal Problems: Yes - abd pain, gastritis, appendectomy Physical Exam Sp02 EP Interpretation: reviewed, normal Medical Decision Making Diagnostic Impression: Primary Impression: Abdominal pain Additional Impressions: Polysubstance abuse Marijuana abuse Amphetamine abuse Dextrocardia Right clavicle fracture EKG Diagnostic Results Troponin ordered: Yes When was troponin ordered?: Jun 12, 2020 EKG Time: 10:34 Rate: normal Rhythm: NSR ST Segments: no acute changes ASA given to the pt in ED: No - not acs PA Scribe Text 12-lead EKG (interpreted by me) Time: 1027 Indication: Rhythm analysis Tracing visualized and Interpreted by me. Rhythm: Normal sinus rhythm Rate: 91 bpm QTc: 430 Morphology: No_significant_ST_elevations_or_depressions, No STEMI Impression: Normal_sinus_rhythm_without_significant_abnormality T wave inversion in the inferior leads. ST changes in the lateral leads V4 through V6. Rhythm Strip Diag. Results Rhythm Strip Time: 10:35 EP Interpretation: yes Rate: 95 Rhythm: NSR, no PVC's, no ectopy Reevaluation Time: 10:35 Status: improved Disposition: HOME, SELF-CARE Admit Decision Time: 10:35 Condition: Stable Scripts Omeprazole (Omeprazole) 20 Mg Tab.rap. 20 MG PO DAILY for Gerd for 10 Days, #20 TAB Prov: Tanya Alcantar D.O. 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 Stop doing methamphetamines and smoking marijuana. This is likely contributing to your symptoms. Follow-up with your doctor sooner if your condition requires a more timely clinical reevaluation. Return to the emergency department immediately if you feel that your condition is worsening or if you have any new or concerning symptoms. Review your discharge instructions and take any prescriptions given as instructed. [facility] PROVIDES FREE OR LOW-COST HEALTH SERVICES TO PEOPLE WHO CAN SHOW PROOF THAT THEY LIVE IN [facility]. TO FIND MORE CLINICS PARTNERED WITH [facility] TO PROVIDE SERVICE, PLEASE CALL . Tanya Alcantar D.O. Jun 12, 2020 09:52
[2020-06-12 10:01] VITALS: BP 133/79
[2020-06-12] MEDS ORDERED: Dicyclomine HCl 10mg/5ml oral soln ORAL ONE (10:15)
[2020-06-12] MEDS ORDERED: Lidocaine 2% Visc 15ml soln ORAL ONE (10:15)
[2020-06-12 10:34] LABS: BASOPHILS % (AUTO) 1.1 % (0.0-2.0); EOSINOPHILS % (AUTO) 3.7 % (0.0-3.0); HEMATOCRIT 46.6 % (42.0-52.0); HEMOGLOBIN 15.3 G/DL (14.2-18.0); LYMPHOCYTES % (AUTO) 25.1 % (20.0-45.0); MEAN CORPUSCULAR VOLUME 92 FL (80-99); NEUTROPHILS % (AUTO) 61.1 % (45.0-75.0); PLATELET COUNT 259 K/UL (150-450); RED BLOOD COUNT 5.08 M/UL (4.70-6.10); RED CELL DISTRIBUTION WIDTH 12.2 % (11.6-14.8); WHITE BLOOD COUNT 7.5 K/UL (4.8-10.8)
[2020-06-12] MEDS ORDERED: OMEPRAZOLE20 M4 PO (10:41)
[2020-06-12 10:48] LABS: ANION GAP 7 mmol/L (5-15); BLOOD UREA NITROGEN 13 mg/dL (7-18); CALCIUM 8.2 MG/DL (8.5-10.1); CARBON DIOXIDE 27 MMOL/L (21-32); CHLORIDE 107 MMOL/L (98-107); CREATININE 1.1 MG/DL (0.55-1.30); POTASSIUM 3.8 MMOL/L (3.5-5.1); SODIUM 141 MMOL/L (136-145)
[2020-06-12 10:52] LABS: ALANINE AMINOTRANSFERASE 43 U/L (12-78); ALBUMIN 3.9 G/DL (3.4-5.0); ALBUMIN/GLOBULIN RATIO 1.1 (1.0-2.7); ALKALINE PHOSPHATASE 97 U/L (46-116); ASPARTATE AMINO TRANSFERASE 33 U/L (15-37); BILIRUBIN,TOTAL 0.4 MG/DL (0.2-1.0)
[2020-06-12 11:01] VITALS: BP 133/91
--- NOTE | 2020-06-13 15:12 | Cardiology Report ---
APPROVED REPORT EKG Measurement Heart [id number] NC 102P56 [id number] <Conclusion> Sinus rhythm with short NC Possible Lateral infarct, age undetermined Possible Inferior infarct, age undetermined Abnormal ECG
== END 2020-06-12 11:04 | disposition home or self-care (01) ==
LOC: EMR 10:20
DX: R10.13 Epigastric pain (principal); K21.9 Gastro-esophageal reflux disease without esophagitis; Z87.11 Personal history of peptic ulcer disease; Z90.49 Acquired absence of other specified parts of digestive tract; F15.10 Other stimulant abuse, uncomplicated; F12.10 Cannabis abuse, uncomplicated; F19.10 Other psychoactive substance abuse, uncomplicated; Q24.0 Dextrocardia; S42.001A Fracture of unspecified part of right clavicle, initial encounter for closed fracture; Z90.89 Acquired absence of other organs; K40.90 Unilateral inguinal hernia, without obstruction or gangrene, not specified as recurrent
CPT/HCPCS: 36415; 80053; 83690; 84484; 85025; 93005; Z7502; 99283

== ENCOUNTER 2020-06-12 11:56 | Emergency (ER) | payer OTHER ==
[~2020-06-12] VITALS: Ht 167.6 cm; Wt 83.9 kg
[~2020-06-12 11:56] MED LIST changes: +OMEPRAZOLE20 M4 PO
--- NOTE | 2020-06-12 12:24 | NUR ---
ED Nurse Note: Pt was previously discharged from ED a few hours ago, pt returned stating that he now has chest pain. pt placed in room will be seen by MCAO
[2020-06-12 12:25] VITALS: BP 131/87
--- NOTE | 2020-06-12 12:49 | Emergency Room Report ---
History of Present Illness General Chief Complaint: Pain Present Illness HPI 30 YO Male Presents to the ED c/o 03/19 in severity epigastric pain/ Chest pain after feeling a "pop" right after being discharged from the ED when he was sitting in the waiting room. He reports meds given in ED prior helped with his symptoms but they returned. Pt. denies cough. Pt. denies hemoptysis. He denies wheezing, SOB, or palpitations. He reports having a "flipped" heart. Pt. denies trauma or fall. He denies rash. He denies nausea or vomiting. He reports some pain with palpation. Pt .does report itchiness to the right side of the neck. Pt. denies recent drug use. He denies back pain. He denies bloody stool or black stool. He reports hx of gastritis. He reports he is not taking any medications although he is prescribed some. Denies SI/HI. Denies PSA's. 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 Patient History Past Medical History: see triage record Past Surgical History: none Pertinent Family History: none Reviewed Nursing Documentation: PMH: Agreed; PSxH: Agreed Nursing Documentation-PMH Hx Cardiac Problems: Yes - "flipped heart" per patient Hx Gastrointestinal Problems: Yes - pancreatitis, gastritis, appendectomy Review of Systems All Other Systems: negative except mentioned in HPI Physical Exam Vital Signs Date Time Temp Pulse Resp B/P (MAP) Pulse Ox O2 Delivery O2 Flow Rate FiO2 06/12/20 12:00 98.4 86 18 131/87 (102) 97 Room Air Sp02 EP Interpretation: reviewed, normal General Appearance: no apparent distress, alert, GCS 15, non-toxic Head: normocephalic, atraumatic Eyes: bilateral eye normal inspection, bilateral eye PERRL ENT: hearing grossly normal, normal voice, other - no swelling of the lips or tongue. Neck: full range of motion, other - no stridor. No rash noted. Respiratory: chest non-tender, lungs clear, normal breath sounds, no rhonchi, no respiratory distress, no retraction, no accessory muscle use, no wheezing, speaking full sentences Cardiovascular #1: regular rate, rhythm, no edema, normal capillary refill Gastrointestinal: normal bowel sounds, soft, other - mild epigastric tenderness to deep palpation. Musculoskeletal: back normal, normal range of motion, gait/station normal, non- tender, other - some ttp to the lower sternum and anterior right ribs with palpation. NO flail chest, no bruises, no palpable abnormalities. Neurologic: alert, motor strength/tone normal, oriented x3, sensory intact, responsive, speech normal Psychiatric: judgement/insight normal, mood/affect normal, no suicidal/homicidal ideation Skin: no rash, normal color Lymphatic: no adenopathy Medical Decision Making PA Attestation Dr. Alcantar is my supervising Physician whom patient management has been discussed with. Diagnostic Impression: Primary Impression: Abdominal pain Qualified Codes: R10.13 - Epigastric pain Additional Impression: Costochondritis, acute ER Course 30 YO Male Presents to the ED c/o epigastric pain/ Chest pain after feeling a "pop" right after being discharged from the ED when he was sitting in the waiting room. He reports meds given in ED prior helped with his symptoms but they returned. Pt. denies cough. Pt. denies hemoptysis. He denies wheezing, SOB, or palpitations. He reports having a "flipped" heart. Pt. denies trauma or fall. He denies rash. He denies nausea or vomiting. He reports some pain with palpation. Pt .does report itchiness to the right side of the neck. Pt. denies recent drug use. Ddx considered but are not limited to DC, GE, colitis, acute appendicitis, SBO, H.pylori, Gastritis, PNA, pericarditis just to name a few. Vital signs: pt. is afebrile, H&PE are most consistent with Gastritis - no evidence to suggest acute abdomen on physical exam. Pt. just received full cardiac work up here in the ED 1 hour ago. -Reviewed previous chart and results. pt. refused to give urine earlier. He has hx of polysubstance abuse and schizophrenia. Pt. is well known to the ED due to frequent ED visits. ORDERS: -None required at this time, the dx is clinical. ED INTERVENTIONS: -Pepcid PO -Seroquel 25mg Pt. reports improvement. D/w pt. results of his CXR and EKG. Also recently performed laboratory work do not suggest an emergent condition at this time. D/w pt. that there are many things that are nonemergent that could be causing his symptoms but those need to be evaluated on an outpatient basis. D/ w pt. the importance of establishing himself with a PCP and psychiatrist. D/w pt. the importance of taking his psychiatric medications regularly. -I do not identify an emergent condition at this time. With current presenta tion, pt. is stable for close outpatient follow up and conservative treatment. D/w pt. to return promptly to ED with worsening or new symptoms.- Pt. verbalizes' understanding and agreement with proposed treatment plan. DISCHARGE: At this time pt. is stable for d/c to home. Will provide printed patient care instructions, and any necessary prescriptions. Care plan and follow up instructions have been discussed with the patient prior to discharge. EKG Diagnostic Results Troponin ordered: No - because pt. had normal troponin 1 hour ago. EKG Time: 13:16 Rate: normal - 99 Rhythm: NSR ST Segments: no acute changes ASA given to the pt in ED: No PA Scribe Text This Interpretation was scribed by ANDREW Taveras. Chest X-Ray Diagnostic Results Chest X-Ray Diagnostic Results : Chest X-Ray Ordered: Yes # of Views/Limited/Complete: 1 View Indication: Chest Pain EP Interpretation: Yes ANDREW Xray: Interpretation reviewed, by supervising MD, and agrees with findings. Interpretation: no consolidation, no effusion, no pneumothorax, no acute cardiopulmonary disease Impression: No acute disease Electronically Signed by: Natasha Taveras PA-C Last Vital Signs Date Time Temp Pulse Resp B/P (MAP) Pulse Ox O2 Delivery O2 Flow Rate FiO2 06/12/20 12:25 98.4 77 18 131/87 97 Room Air Status: improved Disposition: HOME, SELF-CARE Condition: Stable Referrals: Rory [facility] Patient Instructions: Abdominal Pain, Adult, [id number], Nonspecific Chest Pain, [id number] Additional Instructions: Take previously prescribed medications as directed. Follow up with a Primary Care Provider in 3-5 days, even if your symptoms have resolved. --Please review list of primary care clinics, if you do not already have a primary care provider Return sooner to ED if new symptoms occur, or current symptoms become worse. - Please note that this Emergency Department Report was dictated using [employer] information specialist technology software, occasionally this can lead to erroneous entry secondary to interpretation by the dictation equipment. Natasha Taveras Jun 12, 2020 12:49
--- NOTE | 2020-06-12 13:23 | NUR ---
ED Nurse Note: xray at bedside
--- NOTE | 2020-06-12 13:40 | NUR ---
ER DISCHARGE NOTE: Patient is cleared to be discharged per ERMD, pt is aox4, on room air, with stable vital signs. pt was given dc and prescription instructions, pt was able to verbalize understanding, pt id band removed. pt is able to ambulate with steady gait. pt took all belongings.
[2020-06-12 13:41] VITALS: BP 125/81
--- NOTE | 2020-06-13 15:10 | Cardiology Report ---
APPROVED REPORT EKG Measurement Heart [id number] <Conclusion> Sinus rhythm with short W[place] Possible Lateral infarct, age undetermined Possible Inferior infarct, age undetermined Abnormal ECG
--- NOTE | 2020-06-13 16:00 | Diagnostic Imaging Report ---
Indication: Chest pain Technique: One view of the chest Comparison: 05/30/2020 Findings: Lungs and pleural spaces are clear. Heart size is normal. No significant change Impression: No acute process
== END 2020-06-12 13:50 | disposition home or self-care (01) ==
LOC: EMR 12:35
DX: R10.13 Epigastric pain (principal); M94.0 Chondrocostal junction syndrome [Tietze]; Z90.89 Acquired absence of other organs; R07.9 Chest pain, unspecified; L29.9 Pruritus, unspecified; F20.9 Schizophrenia, unspecified
CPT/HCPCS: 71045; 93005; Z7502; 99283

== ENCOUNTER 2020-06-17 10:30 | Emergency (ER) | payer OTHER ==
[~2020-06-17] VITALS: Ht 167.6 cm; Wt 83.9 kg
[2020-06-17 10:36] VITALS: BP 140/89
[2020-06-17] MEDS ORDERED: Dicyclomine HCl 10mg/5ml oral soln ORAL ONE (10:45)
[2020-06-17] MEDS ORDERED: Lidocaine 2% Visc 15ml soln ORAL ONE (10:45)
[2020-06-17] MEDS ORDERED: Mylanta II UD 30ml ORAL ONE (10:45)
--- NOTE | 2020-06-17 10:51 | Emergency Room Report ---
History of Present Illness General Chief Complaint: Chest Pain Source: Patient Present Illness HPI Disclaimer: Please note that this report is being documented using [employer] technology. This can lead to erroneous entry secondary to incorrect interpretation by the dictating instrument. HPI: 30-year-old male history of gastritis and methamphetamine abuse presents for evaluation of chest and abdominal pain. Symptoms began several hours ago. He reports using a vape pen. He reports a burning and sharp sensation in his epigastrium rating up into his chest. He reports increase elevation. Reports nausea but no vomiting. Is not taking his omeprazole. He has been seen in the emergency department multiple times for this most recently [address] scan showed diverticulosis without diverticulitis. He denies diarrhea or lower abdominal pain or cramping. Denies dysuria, hematuria, flank pain fevers or chills. Denies shortness of breath or palpitations. 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 EOMI. Cardiovascular: Tachycardic. S1 and S2 normal. No murmur appreciated Resp: Normal work of breathing. No cough, wheezing or crackles appreciated Abdomen: Abdomen is soft, nondistended. Tender palpation in the epigastrium Skin: Intact. No abrasions, laceration or rash over the exposed skin MSK: Normal tone and bulk. Moving all extremities. No obvious deformity. Neuro: Awake and alert. Mentating appropriately. Medical Decision Making Diagnostic Impression: Primary Impression: Chest pain Additional Impressions: Abdominal pain Amphetamine abuse ER Course Is a 30-year-old male presenting again to the emergency department complaining of epigastric and chest discomfort. Differential includes was not limited to ACS, arrhythmia, esophageal spasm, GERD, gastritis, gastroenteritis, pancreatitis, cholecystitis, substance abuse to name a few. No significant findings on recent CT 5 days ago. His belly is soft, no acute abdomen. Lipase and troponin are negative. EKG is nonischemic. No acute findings on chest or abdominal x-ray. Suspect his symptoms are again related to methamphetamine use. Encouraged to follow-up with outpatient drug rehab services as provided in discharge paperwork. He is stable for outpatient follow-up. Laboratory Tests Test 06/17/20 11:25 White Blood Count 8.2 K/UL (4.8-10.8) Red Blood Count 5.51 M/UL (4.70-6.10) Hemoglobin 16.6 G/DL (14.2-18.0) Hematocrit 50.4 % (42.0-52.0) Mean Corpuscular Volume 92 FL (80-99) Mean Corpuscular Hemoglobin 30.1 PG (27.0-31.0) Mean Corpuscular Hemoglobin Concent 32.9 G/DL (32.0-36.0) Red Cell Distribution Width 12.9 % (11.6-14.8) Platelet Count 241 K/UL (150-450) Mean Platelet Volume 7.8 FL (6.5-10.1) Neutrophils (%) (Auto) 70.0 % (45.0-75.0) Lymphocytes (%) (Auto) 21.2 % (20.0-45.0) Monocytes (%) (Auto) 6.8 % (1.0-10.0) Eosinophils (%) (Auto) 1.3 % (0.0-3.0) Basophils (%) (Auto) 0.7 % (0.0-2.0) Sodium Level 138 MMOL/L (136-145) Potassium Level 3.3 MMOL/L (3.5-5.1) L Chloride Level 100 MMOL/L (98-107) Carbon Dioxide Level 30 MMOL/L (21-32) Anion Gap 8 mmol/L (5-15) Blood Urea Nitrogen 10 mg/dL (7-18) Creatinine 1.1 MG/DL (0.55-1.30) Estimated Glomerular Filtration Rate > 60 mL/min (>60) Glucose Level 94 MG/DL (74-106) Calcium Level 8.9 MG/DL (8.5-10.1) Total Bilirubin 0.4 MG/DL (0.2-1.0) Aspartate Amino Transferase (AST) 28 U/L (15-37) Alanine Aminotransferase (ALT) 44 U/L (12-78) Alkaline Phosphatase 90 U/L (46-116) Troponin I 0.000 ng/mL (0.000-0.056) Total Protein 8.5 G/DL (6.4-8.2) H Albumin 4.4 G/DL (3.4-5.0) Globulin 4.1 g/dL Albumin/Globulin Ratio 1.1 (1.0-2.7) Lipase 101 U/L (73-393) Urine Opiates Screen Negative (NEGATIVE) Urine Barbiturates Screen Negative (NEGATIVE) Phencyclidine (PCP) Screen Negative (NEGATIVE) Urine Amphetamines Screen Positive (NEGATIVE) H Urine Benzodiazepines Screen Negative (NEGATIVE) Urine Cocaine Screen Negative (NEGATIVE) Urine Marijuana (THC) Screen Positive (NEGATIVE) H EKG Diagnostic Results Troponin ordered: Yes When was troponin ordered?: Jun 17, 2020 EKG Time: 11:05 Rate: normal Rhythm: NSR ST Segments: no acute changes Other Impression Sinus rhythm, tachycardic rate, normal axis, normal intervals, no ST segment elevation Rhythm Strip Diag. Results Rhythm Strip Time: 11:05 EP Interpretation: yes Rate: 106 Rhythm: NSR, no PVC's, no ectopy Chest X-Ray Diagnostic Results Chest X-Ray Diagnostic Results : Chest X-Ray Ordered: Yes # of Views/Limited/Complete: 1 View Indication: Chest Pain EP Interpretation: Yes Interpretation: no consolidation, no effusion, no pneumothorax, other - Dextrocardia redemonstrated, no infiltrate, no pneumothorax, no effusion Impression: Other - Dextrocardia Electronically Signed by: Electronically signed by Dr. Jaspal Hawk MD Other X-Ray Diagnostic Results Other X-Ray Diagnostic Results : X-Ray ordered: Abdomen # of Views/Limited Vs Complete: 1 View Indication: Pain EP Interpretation: Yes Interpretation: nonspecific bowel gas, no sbo Impression: No acute disease Electronically Signed by: Electronically signed by Dr. Jaspal Hawk MD Last Vital Signs Date Time Temp Pulse Resp B/P (MAP) Pulse Ox O2 Delivery O2 Flow Rate FiO2 06/17/20 10:36 98.4 113 18 140/89 (106) 97 Room Air Disposition: HOME, SELF-CARE Condition: Stable Scripts Omeprazole (OMEPRAZOLE) 40 Mg Capsule. 40 MG ORAL TWICE A DAY, #30 CAP Prov: Jaspal Hawk MD 06/17/20 Jaspal Hawk MD Jun 17, 2020 10:51
[2020-06-17 11:40] LABS: BASOPHILS % (AUTO) 0.7 % (0.0-2.0); EOSINOPHILS % (AUTO) 1.3 % (0.0-3.0); HEMATOCRIT 50.4 % (42.0-52.0); HEMOGLOBIN 16.6 G/DL (14.2-18.0); LYMPHOCYTES % (AUTO) 21.2 % (20.0-45.0); MEAN CORPUSCULAR VOLUME 92 FL (80-99); MONOCYTES % (AUTO) 6.8 % (1.0-10.0); PLATELET COUNT 241 K/UL (150-450); RED BLOOD COUNT 5.51 M/UL (4.70-6.10); RED CELL DISTRIBUTION WIDTH 12.9 % (11.6-14.8); WHITE BLOOD COUNT 8.2 K/UL (4.8-10.8)
[2020-06-17] MEDS ORDERED: LORazepam Inj 2mg/ml 1ml IV ONE (11:45)
--- NOTE | 2020-06-17 11:47 | Diagnostic Imaging Report ---
EXAM: XR Abdomen, 2 Views CLINICAL HISTORY: CP TECHNIQUE: Frontal view of the abdomen/pelvis with upright view of the abdomen. COMPARISON: Abdominal radiographs on 05/31/2020 FINDINGS: Hardware: None. Abdomen: Nonobstructive bowel gas pattern. No free air. Bones: Normal. Soft tissues: Normal. Lower chest: Normal. IMPRESSION: Nonobstructive bowel gas pattern.
--- NOTE | 2020-06-17 11:48 | Diagnostic Imaging Report ---
EXAM: XR Chest, 1 View CLINICAL HISTORY: CP TECHNIQUE: Frontal view of the chest. COMPARISON: Chest radiograph on 06/12/2020 FINDINGS: Hardware: None. Lungs/pleura: Low lung volumes with probable crowding of bronchovascular structures. No focal consolidation. No pleural effusion or pneumothorax. Heart/mediastinum: Normal. No cardiomegaly. Soft tissues: Unremarkable. Bones: No acute fracture. Upper abdomen: Normal. IMPRESSION: Low lung volumes with probable crowding of bronchovascular structures. No focal consolidation.
[2020-06-17 11:55] LABS: ANION GAP 8 mmol/L (5-15); BLOOD UREA NITROGEN 10 mg/dL (7-18); CALCIUM 8.9 MG/DL (8.5-10.1); CARBON DIOXIDE 30 MMOL/L (21-32); CHLORIDE 100 MMOL/L (98-107); CREATININE 1.1 MG/DL (0.55-1.30); POTASSIUM 3.3 MMOL/L (3.5-5.1); SODIUM 138 MMOL/L (136-145)
[2020-06-17] MEDS ORDERED: OMEPRAZOLE40 M1 ORAL (11:56)
[2020-06-17 11:59] LABS: ALANINE AMINOTRANSFERASE 44 U/L (12-78); ALBUMIN 4.4 G/DL (3.4-5.0); ALBUMIN/GLOBULIN RATIO 1.1 (1.0-2.7); ALKALINE PHOSPHATASE 90 U/L (46-116); ASPARTATE AMINO TRANSFERASE 28 U/L (15-37); BILIRUBIN,TOTAL 0.4 MG/DL (0.2-1.0)
[2020-06-17 12:46] VITALS: BP 137/88
--- NOTE | 2020-06-19 19:24 | Cardiology Report ---
APPROVED REPORT EKG Measurement Heart [id number] ND 114P56 [id number] <Conclusion> Sinus tachycardia Possible Lateral infarct, age undetermined Abnormal ECG
== END 2020-06-17 12:46 | disposition home or self-care (01) ==
LOC: EMR 11:11
DX: R07.89 Other chest pain (principal); R10.13 Epigastric pain; F15.10 Other stimulant abuse, uncomplicated; Z90.49 Acquired absence of other specified parts of digestive tract; Z87.19 Personal history of other diseases of the digestive system
CPT/HCPCS: 36415; 71045; 74018; 80053; 80307; 83690; 84484; 85025; 93005; 96361; 96374; 96375; J7030; S0028; Z7502; 99284

== ENCOUNTER 2020-07-12 08:55 | Emergency (ER) | payer OTHER ==
[~2020-07-12] VITALS: Ht 167.6 cm; Wt 88.5 kg
[2020-07-12 09:14] VITALS: BP 128/76
[2020-07-12] MEDS ORDERED: LORazepam Inj 2mg/ml 1ml IV ONE (09:30)
[2020-07-12 10:26] LABS: INR 1.1 (0.9-1.1)
[2020-07-12 10:34] LABS: BASOPHILS % (AUTO) 1.1 % (0.0-2.0); EOSINOPHILS % (AUTO) 0.6 % (0.0-3.0); HEMOGLOBIN 15.5 G/DL (14.2-18.0); LYMPHOCYTES % (AUTO) 14.9 % (20.0-45.0); MEAN CORPUSCULAR VOLUME 87 FL (80-99); MONOCYTES % (AUTO) 8.8 % (1.0-10.0); NEUTROPHILS % (AUTO) 74.6 % (45.0-75.0); PLATELET COUNT 242 K/UL (150-450); RED BLOOD COUNT 5.26 M/UL (4.70-6.10); RED CELL DISTRIBUTION WIDTH 13.8 % (11.6-14.8); WHITE BLOOD COUNT 9.3 K/UL (4.8-10.8)
[2020-07-12 10:52] LABS: ANION GAP 11 mmol/L (5-15); BLOOD UREA NITROGEN 16 mg/dL (7-18); CALCIUM 9.3 MG/DL (8.5-10.1); CARBON DIOXIDE 26 MMOL/L (21-32); CHLORIDE 103 MMOL/L (98-107); CREATININE 1.1 MG/DL (0.55-1.30); SODIUM 140 MMOL/L (136-145)
[2020-07-12 10:56] LABS: ALANINE AMINOTRANSFERASE 108 U/L (12-78); ALBUMIN 4.5 G/DL (3.4-5.0); ALBUMIN/GLOBULIN RATIO 1.1 (1.0-2.7); ALKALINE PHOSPHATASE 87 U/L (46-116); ASPARTATE AMINO TRANSFERASE 61 U/L (15-37); BILIRUBIN,TOTAL 0.7 MG/DL (0.2-1.0); CREATINE KINASE 276 U/L (26-308)
[2020-07-12 11:12] LABS: APPEARANCE,URINE CLEAR; BILIRUBIN, URINE NEGATIVE (NEGATIVE); GLUCOSE, URINE (UA) NEGATIVE (NEGATIVE); KETONES,URINE 2+ (NEGATIVE); LEUKOCYTE ESTERASE ,URINE NEGATIVE (NEGATIVE); NITRITE,URINE NEGATIVE (NEGATIVE); PH,URINE 5 (4.5-8.0); PROTEIN,URINE 1+ (NEGATIVE); UROBILINOGEN,URINE NORMAL MG/DL (0.0-1.0)
[2020-07-12 11:13] LABS: COLOR,URINE YELLOW
[2020-07-12] MEDS ORDERED: DICYCLOMINE HCL10 MG ORAL (11:29)
[2020-07-12 11:45] VITALS: BP 120/49
--- NOTE | 2020-07-14 13:05 | Cardiology Report ---
APPROVED REPORT EKG Measurement Heart [id number] FL 96P36 [id number] <Conclusion> Sinus tachycardia with short FL Otherwise normal ECG
--- NOTE | 2020-07-15 18:23 | Emergency Room Report ---
History of Present Illness General Chief Complaint: Abdominal Pain Source: Patient Present Illness HPI Patient is a 30-year-old male presents for increased abdominal discomfort. Prior history of substance abuse and multiple ER visits in the past. He denies any recent amphetamine use however he has used multiple times in the past and has had previous visits for similar symptoms. Reports of increased chest t ightness. Denies any nausea or vomiting. Denies any prior cardiac history. Denies any new leg pain or swelling. Had not been having any fever. Had not been having any cough Allergies: Coded Allergies: No Known Allergies (Unverified , 07/28/19) COVID-19 Screening Contact w/high risk pt: No Experienced COVID-19 symptoms?: No COVID-19 Testing performed GUIDE DOMESTIC TOUR: Yes - a week and a half ago COVID-19 Screening: Negative COVID-19 COVID-19 Testing Source: clinic Patient History Past Medical History: see triage record Reviewed Nursing Documentation: PMH: Agreed; PSxH: Agreed Nursing Documentation-PMH Hx Cardiac Problems: Yes - "flipped heart" per patient Hx Gastrointestinal Problems: Yes - pancreatitis, gastritis, appendectomy Review of Systems All Other Systems: negative except mentioned in HPI Physical Exam Vital Signs Date Time Temp Pulse Resp B/P (MAP) Pulse Ox O2 Delivery O2 Flow Rate FiO2 07/12/20 09:00 98.2 129 19 133/78 (96) 95 Room Air 07/12/20 09:14 98 Sp02 EP Interpretation: reviewed, normal General Appearance: normal inspection, well appearing, no apparent distress, alert, GCS 15 Head: atraumatic ENT: normal ENT inspection, hearing grossly normal, normal voice Neck: normal inspection, full range of motion, supple, no bony tend Respiratory: normal inspection, lungs clear, normal breath sounds, no respiratory distress, no retraction, no wheezing Cardiovascular #1: no edema, tachycardia Gastrointestinal: normal inspection, normal bowel sounds, non tender, soft, no guarding, no hernia Genitourinary: no CVA tenderness Musculoskeletal: normal inspection, back normal, normal range of motion Neurologic: alert, responsive, speech normal, normal inspection Psychiatric: normal inspection, judgement/insight normal, mood/affect normal Medical Decision Making Diagnostic Impression: Primary Impression: Amphetamine abuse Additional Impression: Hepatitis ER Course Patient presented for chest discomfort. Differential diagnosis included was not limited to pneumonia, substance abuse, anxiety, pancreatitis among others. Because of complexity of patient's case laboratory tests and imaging studies were ordered. Patient's laboratory testing was unremarkable. Patient's urine drug screen did show positive for amphetamine despite patient stating that he did not use. Laboratory testing showed no evidence of elevated troponin. There were some abnormal liver function test noted which patient has some prior history of fatty liver. Patient was advised to stop using drugs. Is advised to seek outpatient treatment. Patient was advised outpatient cardiology follow-up. The patient is advised to follow up with primary care doctor in 1-2 days. Patient is advised to return if any worsening condition or if any changes in status that are concerning. This report is dictated with [employer] manager urology software which may occasionally lead to discrepancies related to use of this software. Labs Test 07/12/20 09:46 07/12/20 10:52 White Blood Count 9.3 K/UL (4.8-10.8) Red Blood Count 5.26 M/UL (4.70-6.10) Hemoglobin 15.5 G/DL (14.2-18.0) Hematocrit 46.0 % (42.0-52.0) Mean Corpuscular Volume 87 FL (80-99) Mean Corpuscular Hemoglobin 29.5 PG (27.0-31.0) Mean Corpuscular Hemoglobin Concent 33.8 G/DL (32.0-36.0) Red Cell Distribution Width 13.8 % (11.6-14.8) Platelet Count 242 K/UL (150-450) Mean Platelet Volume 7.9 FL (6.5-10.1) Neutrophils (%) (Auto) 74.6 % (45.0-75.0) Lymphocytes (%) (Auto) 14.9 % (20.0-45.0) Monocytes (%) (Auto) 8.8 % (1.0-10.0) Eosinophils (%) (Auto) 0.6 % (0.0-3.0) Basophils (%) (Auto) 1.1 % (0.0-2.0) Prothrombin Time 11.7 SEC (9.30-11.50) Prothromb Time International Ratio 1.1 (0.9-1.1) Activated Partial Thromboplast Time 31 SEC (23-33) Sodium Level 140 MMOL/L (136-145) Potassium Level 4.0 MMOL/L (3.5-5.1) Chloride Level 103 MMOL/L (98-107) Carbon Dioxide Level 26 MMOL/L (21-32) Anion Gap 11 mmol/L (5-15) Blood Urea Nitrogen 16 mg/dL (7-18) Creatinine 1.1 MG/DL (0.55-1.30) Estimat Glomerular Filtration Rate > 60 mL/min (>60) Glucose Level 110 MG/DL (74-106) Calcium Level 9.3 MG/DL (8.5-10.1) Total Bilirubin 0.7 MG/DL (0.2-1.0) Aspartate Amino Transf (AST/SGOT) 61 U/L (15-37) Alanine Aminotransferase (ALT/SGPT) 108 U/L (12-78) Alkaline Phosphatase 87 U/L (46-116) Total Creatine Kinase 276 U/L (26-308) Troponin I 0.000 ng/mL (0.000-0.056) Total Protein 8.7 G/DL (6.4-8.2) Albumin 4.5 G/DL (3.4-5.0) Globulin 4.2 g/dL Albumin/Globulin Ratio 1.1 (1.0-2.7) Lipase 86 U/L (73-393) Urine Color Yellow Urine Appearance Clear Urine pH 5 (4.5-8.0) Urine Specific [place] 1.025 (1.005-1.035) Urine Protein 1+ (NEGATIVE) Urine Glucose (UA) Negative (NEGATIVE) Urine Ketones 2+ (NEGATIVE) Urine Blood Negative (NEGATIVE) Urine Nitrite Negative (NEGATIVE) Urine Bilirubin Negative (NEGATIVE) Urine Urobilinogen Normal MG/DL (0.0-1.0) Urine Leukocyte Esterase Negative (NEGATIVE) Urine RBC 0 /HPF (0 - 0) Urine WBC 0-2 /HPF (0 - 0) Urine Squamous Epithelial Cells Occasional /LPF Urine Bacteria Occasional /HPF (NONE) Urine Mucus Moderate /LPF (NONE/OCC) Urine Opiates Screen Negative (NEGATIVE) Urine Barbiturates Screen Negative (NEGATIVE) Phencyclidine (PCP) Screen Negative (NEGATIVE) Urine Amphetamines Screen Positive (NEGATIVE) Urine Benzodiazepines Screen Negative (NEGATIVE) Urine Cocaine Screen Negative (NEGATIVE) Urine Marijuana (THC) Screen Positive (NEGATIVE) Last Vital Signs Date Time Temp Pulse Resp B/P (MAP) Pulse Ox O2 Delivery O2 Flow Rate FiO2 07/12/20 11:45 98.2 120 17 120/49 99 Room Air 07/12/20 09:14 98 Status: improved Disposition: HOME, SELF-CARE Condition: Stable Scripts Dicyclomine Hcl* (DICYCLOMINE HCL*) 10 Mg Capsule 10 MG ORAL QID, #20 CAP Prov: Juni May MD 07/12/20 Patient Instructions: Abdominal Pain, Adult Additional Instructions: Follow up with your doctor for recheck. Do not smoke marijuana or use amphetamines. Juni May MD Jul 15, 2020 18:23
== END 2020-07-12 11:45 | disposition home or self-care (01) ==
LOC: EMR 09:28
DX: F15.10 Other stimulant abuse, uncomplicated (principal); K75.9 Inflammatory liver disease, unspecified
CPT/HCPCS: 36415; 80053; 80307; 81003; 82550; 83690; 84484; 85025; 85610; 85730; 93005; 96361; 96374; 96375; J7030; S0028; Z7502; 99284

== ENCOUNTER 2020-08-16 14:29 | Emergency (ER) | payer OTHER ==
[~2020-08-16] VITALS: Ht 167.6 cm; Wt 88.5 kg
--- NOTE | 2020-08-16 15:04 | NUR ---
ED Nurse Note: Pt walked into ED for lower abdominal pain for 1 month. Pt denies nausea, vomiting, diarrhea. He has no SOB. Pt is alert and orientedx4, ambulatory. Pt has been seen by ERMD. He is set up on monitor. IV established.
[2020-08-16 15:06] VITALS: BP 132/90
--- NOTE | 2020-08-16 15:41 | Emergency Room Report ---
History of Present Illness General Chief Complaint: Abdominal Pain Source: Patient Present Illness HPI This patient states that for the past week he has had abdominal pain and intermittent hematuria. States that the pain in his abdomen has moved around. He also has had some low back pain. He did return from [facility] days ago. Denies nausea or vomiting. He denies diarrhea or constipation. He states that he has been having a burning sensation when he urinates over the past few days. He admits to unprotected sexual intercourse. He denies penile discharge. He denies fever or chills. He denies cough or congestion. He denies sore throat. He denies headache or neck pain. He states he does have a history of gastritis. He has no other complaints. 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0 98 15 141/95 (110) 96 Room Air 08/16/20 15:06 96 Sp02 EP Interpretation: reviewed, normal General Appearance: no apparent distress, alert, GCS 15, non-toxic Head: normocephalic, atraumatic Eyes: bilateral eye normal inspection, bilateral eye PERRL ENT: hearing grossly normal, normal pharynx, no angioedema, normal voice Neck: full range of motion, supple/symm/no masses Respiratory: normal breath sounds, no respiratory distress, no retraction, no accessory muscle use, speaking full sentences Cardiovascular #1: regular rate, rhythm, no edema Gastrointestinal: normal bowel sounds, soft, non-distended, no guarding, no rebound, tenderness - TTP in the LLQ Rectal: deferred Musculoskeletal: back normal, normal range of motion, gait/station normal, non- tender Neurologic: alert, motor strength/tone normal, oriented x3, sensory intact, responsive, speech normal Psychiatric: judgement/insight normal, memory normal, mood/affect normal, no suicidal/homicidal ideation Skin: no rash, normal color Medical Decision Making Diagnostic Impression: Primary Impression: Abdominal pain ER Course Patient complained of abdominal pain and hematuria and dysuria. My differential diagnosis included: Urolithiasis, STI, diverticulitis, benign hematuria to name a few. Given the pain in the report of hematuria, I felt that I should obtain a CT of the abdomen and pelvis to assess for urolithiasis. CT showed no significant findings. The patient's laboratory work-up was also benign. Specifically there was no hematuria. CBC and CMP were unremarkable. I offered the patient STD treatment but he declined. Overall, my evaluation was benign on this patient. Possibly he had transient hematuria related to microtrauma from sexual activity. Regardless, no emergency medical conditions identified at this time. The patient is given close return precautions and follow-up instructions. This patient was evaluated in the context of the global COVID-19 pandemic, which necessitated consideration that the patient might be at risk for infection with the [id number] virus that causes COVID-19. Institutional protocols and algorithms that pertain to the evaluation of patients at risk for COVID-19 and the state of rapid change based on information released by multiple regulatory bodies including the CDC and federal and state organizations. These policies and algorithms were followed during the patient's care in the ED. Laboratory Tests Test 08/16/20 14:50 08/16/20 15:03 White Blood Count 9.5 K/UL (4.8-10.8) Red Blood Count 5.32 M/UL (4.70-6.10) Hemoglobin 15.7 G/DL (14.2-18.0) Hematocrit 48.7 % (42.0-52.0) Mean Corpuscular Volume 92 FL (80-99) Mean Corpuscular Hemoglobin 29.5 PG (27.0-31.0) Mean Corpuscular Hemoglobin Concent 32.2 G/DL (32.0-36.0) Red Cell Distribution Width 13.3 % (11.6-14.8) Platelet Count 252 K/UL (150-450) Mean Platelet Volume 8.0 FL (6.5-10.1) Neutrophils (%) (Auto) 73.9 % (45.0-75.0) Lymphocytes (%) (Auto) 16.7 % (20.0-45.0) L Monocytes (%) (Auto) 6.8 % (1.0-10.0) Eosinophils (%) (Auto) 1.5 % (0.0-3.0) Basophils (%) (Auto) 1.1 % (0.0-2.0) Sodium Level 140 MMOL/L (136-145) Potassium Level 3.9 MMOL/L (3.5-5.1) Chloride Level 104 MMOL/L (98-107) Carbon Dioxide Level 26 MMOL/L (21-32) Anion Gap 10 mmol/L (5-15) Blood Urea Nitrogen 15 mg/dL (7-18) Creatinine 0.9 MG/DL (0.55-1.30) Estimated Glomerular Filtration Rate > 60 mL/min (>60) Glucose Level 94 MG/DL (74-106) Calcium Level 9.5 MG/DL (8.5-10.1) Total Bilirubin 0.6 MG/DL (0.2-1.0) Aspartate Amino Transferase (AST) 26 U/L (15-37) Alanine Aminotransferase (ALT) 45 U/L (12-78) Alkaline Phosphatase 101 U/L (46-116) Total Protein 8.3 G/DL (6.4-8.2) H Albumin 4.3 G/DL (3.4-5.0) Globulin 4.0 g/dL Albumin/Globulin Ratio 1.1 (1.0-2.7) Lipase 133 U/L (73-393) Urine Color Yellow Urine Appearance Clear Urine pH 8 (4.5-8.0) Urine Specific [place] 1.015 (1.005-1.035) Urine Protein Negative (NEGATIVE) Urine Glucose (UA) Negative (NEGATIVE) Urine Ketones Negative (NEGATIVE) Urine Blood Negative (NEGATIVE) Urine Nitrite Negative (NEGATIVE) Urine Bilirubin Negative (NEGATIVE) Urine Urobilinogen 4 MG/DL (0.0-1.0) H Urine Leukocyte Esterase Negative (NEGATIVE) CT/MRI/US Diagnostic Results CT/MRI/US Diagnostic Results : Imaging Test Ordered: CT abd/pelvis Impression No acute abnormality identified. See official report in electronic medical rec ord. Last Vital Signs Date Time Temp Pulse Resp B/P (MAP) Pulse Ox O2 Delivery O2 Flow Rate FiO2 08/16/20 15:06 99.0 95 18 132/90 96 Room Air 08/16/20 15:06 96 Status: improved Disposition: HOME, SELF-CARE Condition: Improved Referrals: [facility],REFERRING (PCP) Patient Instructions: Abdominal Pain, Adult Miladis Patel DO Aug 16, 2020 15:40
[2020-08-16 15:44] LABS: ANION GAP 10 mmol/L (5-15); BLOOD UREA NITROGEN 15 mg/dL (7-18); CALCIUM 9.5 MG/DL (8.5-10.1); CARBON DIOXIDE 26 MMOL/L (21-32); CHLORIDE 104 MMOL/L (98-107); CREATININE 0.9 MG/DL (0.55-1.30); POTASSIUM 3.9 MMOL/L (3.5-5.1); SODIUM 140 MMOL/L (136-145)
[2020-08-16 15:48] LABS: ALANINE AMINOTRANSFERASE 45 U/L (12-78); ALBUMIN 4.3 G/DL (3.4-5.0); ALBUMIN/GLOBULIN RATIO 1.1 (1.0-2.7); ALKALINE PHOSPHATASE 101 U/L (46-116); ASPARTATE AMINO TRANSFERASE 26 U/L (15-37); BILIRUBIN,TOTAL 0.6 MG/DL (0.2-1.0)
[2020-08-16 15:57] LABS: APPEARANCE,URINE CLEAR; BILIRUBIN, URINE NEGATIVE (NEGATIVE); GLUCOSE, URINE (UA) NEGATIVE (NEGATIVE); KETONES,URINE NEGATIVE (NEGATIVE); LEUKOCYTE ESTERASE ,URINE NEGATIVE (NEGATIVE); NITRITE,URINE NEGATIVE (NEGATIVE); PH,URINE 8 (4.5-8.0); PROTEIN,URINE NEGATIVE (NEGATIVE); UROBILINOGEN,URINE 4 MG/DL (0.0-1.0)
--- NOTE | 2020-08-16 15:57 | Diagnostic Imaging Report ---
Indication: Lower abdominal pain for one month Technique: Spiral acquisitions obtained through the abdomen and pelvis. No oral contrast utilized, per emergency room physician request No IV contrast utilized, per referring physician request.. Multiplanar reconstructions were generated. Total dose length product 551 mGycm. CTDIvol(s) 9 mGy. Dose reduction achieved using automated exposure control Comparison: 06/09/2020 Findings: Lack of enteric contrast limits assessment of the GI tract. The appendix is not visualized. No findings to suggest acute appendicitis are evident. There is colonic diverticulosis. No evidence of diverticulitis. No small bowel distention. No free or loculated intraperitoneal gas or fluid is evident. The distal esophagus, stomach, duodenum are unremarkable. The liver, gallbladder, bile ducts, pancreas, spleen, adrenals, kidneys are all unremarkable. No retroperitoneal or mesenteric mass or adenopathy. No pelvic mass or adenopathy. The included lung bases are clear. The bones are unremarkable. There is no significant interim change Impression: Limited assessment of the GI tract, due to lack of enteric contrast administration No definite acute abnormality Diverticulosis. No evidence of diverticulitis The CT scanner at [facility] is accredited by the [employer] and the scans are performed using protocols designed to limit radiation exposure to as low as reasonably achievable to attain images of sufficient resolution adequate for diagnostic evaluation.
[2020-08-16 16:11] LABS: BASOPHILS % (AUTO) 1.1 % (0.0-2.0); EOSINOPHILS % (AUTO) 1.5 % (0.0-3.0); HEMATOCRIT 48.7 % (42.0-52.0); HEMOGLOBIN 15.7 G/DL (14.2-18.0); LYMPHOCYTES % (AUTO) 16.7 % (20.0-45.0); MEAN CORPUSCULAR VOLUME 92 FL (80-99); MONOCYTES % (AUTO) 6.8 % (1.0-10.0); NEUTROPHILS % (AUTO) 73.9 % (45.0-75.0); PLATELET COUNT 252 K/UL (150-450); RED BLOOD COUNT 5.32 M/UL (4.70-6.10); RED CELL DISTRIBUTION WIDTH 13.3 % (11.6-14.8); WHITE BLOOD COUNT 9.5 K/UL (4.8-10.8)
[2020-08-16 16:33] LABS: COLOR,URINE YELLOW
--- NOTE | 2020-08-16 17:20 | NUR ---
Discharged home with instruction to follow up with pmd reports of labs and x-rays given to patient to take to pmd
[2020-08-16 17:38] VITALS: BP 132/80
== END 2020-08-16 17:30 | disposition home or self-care (01) ==
LOC: EMR 15:00
DX: R10.32 Left lower quadrant pain (principal)
CPT/HCPCS: 36415; 74176; 80053; 81003; 83690; 85025; Z7502; 99284

== ENCOUNTER 2020-08-30 21:46 | Emergency (ER) | payer OTHER ==
[~2020-08-30] VITALS: Ht 167.6 cm; Wt 74.8 kg
--- NOTE | 2020-08-30 22:13 | Emergency Room Report ---
History of Present Illness General Chief Complaint: To Be Triaged Source: Patient Present Illness HPI This is a 30-year-old male with a history of methamphetamine abuse and anxiety. He said he has not used meth for over a month. He presents with chief plaint of chest pain. Onset for last 2 to 3 days. Pain is worse when he take a deep breath. Complained of tightness. No fever chills. No nausea no vomiting. No diaphoresis. Denies any other complaint. No exertional complaint. No radiation of pain. 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 Hx Gastrointestinal Problems: Yes - pancreatitis, gastritis, appendectomy Review of Systems Eye: Denies: eye pain, blurred vision ENT: Denies: ear pain, nose congestion, throat swelling Respiratory: Denies: cough, shortness of breath Cardiovascular: Reports: chest pain; Denies: palpitations Gastrointestinal: Denies: abdominal pain, diarrhea, nausea, vomiting Musculoskeletal: Denies: back pain, joint pain Skin: Denies: rash Neurological: Denies: headache, numbness Endocrine: Denies: increased thirst, increased urine Hematologic/Lymphatic: Denies: easy bruising All Other Systems: negative except mentioned in HPI Physical Exam Vitals unremarkable Sp02 EP Interpretation: reviewed, normal General Appearance: well appearing, no apparent distress, alert Head: normocephalic, atraumatic Eyes: bilateral eye PERRL, bilateral eye EOMI ENT: hearing grossly normal, normal pharynx Neck: full range of motion, supple, no meningismus Respiratory: chest non-tender, lungs clear, normal breath sounds Cardiovascular #1: regular rate, rhythm, no murmur Gastrointestinal: normal bowel sounds, non tender, no mass, no organomegaly, no bruit, non-distended Musculoskeletal: back normal, normal range of motion, gait/station normal Psychiatric: mood/affect normal Medical Decision Making Diagnostic Impression: Primary Impression: Chest pressure ER Course This patient presents with chest pressure. Most likely anxiety related. No evidence of ACS, PE, dissection telemetry. Will discharge home. EKG Diagnostic Results Troponin ordered: Yes Rate: normal Rhythm: NSR ST Segments: no acute changes Rhythm Strip Diag. Results EP Interpretation: yes Rate: 84 Rhythm: NSR, no PVC's, no ectopy Status: improved Disposition: HOME, SELF-CARE Condition: Stable Additional Instructions: Follow-up with your Dr. in 7 days. Return if symptoms worsen. Baldemar Butt MD Aug 30, 2020 22:13
--- NOTE | 2020-08-30 22:20 | NUR ---
ED Nurse Note: PAtient walked into the ED with c/o chest pain onset 3 days ago. Pain 6/10, worse when taking deep breaths. Pt has hx of meth use and anxiety. PT denies SOB/, fever/chills, n/v/d. Patient is AAOx4 and ambulatory. VSS as documented
[2020-08-30 22:33] VITALS: BP 141/85
--- NOTE | 2020-08-30 22:33 | NUR ---
ED Nurse Note: Blood sent
[2020-08-30 23:33] VITALS: BP 141/85
== END 2020-08-30 23:33 | disposition home or self-care (01) ==
LOC: EMR 22:06
DX: R07.9 Chest pain, unspecified (principal)
CPT/HCPCS: 84484; 93005; Z7502; 99283

== ENCOUNTER 2020-09-06 00:27 | Emergency (ER) | payer OTHER ==
[~2020-09-06] VITALS: Ht 165.1 cm; Wt 86.2 kg
[2020-09-06 00:50] VITALS: BP 135/87
--- NOTE | 2020-09-06 00:50 | NUR ---
ED Nurse Note: Recieved pt walk in from home with c/o abdominal pain with penile pain, pt states he had unprotected sex and has pain with discharge, no discharge noted, urine collected, pt also changes complaint each time asked, rates pain at 8/10, pt is calm, denies cp, sob, fevers or any other complaints. MD at bedside, will medicate as ordered and closely monitor.
--- NOTE | 2020-09-06 00:51 | Emergency Room Report ---
History of Present Illness General Chief Complaint: Male Urogenital Problems Source: Patient, Medical Record Present Illness HPI This is a 30-year-old male with history of methamphetamine abuse. He presents with chief complaint of dysuria and discharge. Onset for last 2 days. He is sexually active with unprotected sex. No history of STD. Worse with urination. He also has epigastric pain. This is a chronic issue that he been here numerous times for it. No change from before. No nausea vomiting or diarrhea. No chest pain. Allergies: Coded Allergies: No Known Allergies (Unverified , 07/28/19) COVID-19 Screening Contact w/high risk pt: No Experienced COVID-19 symptoms?: No COVID-19 Testing performed WATCH TRAIN INSPECTOR: No COVID-19 Screening: Negative COVID-19 COVID-19 Testing Source: [facility] Patient History Past Medical History: see triage record, old chart reviewed Past Surgical History: none Pertinent Family History: none Social History: Reports: drug use Immunizations: other Reviewed Nursing Documentation: PMH: Agreed; PSxH: Agreed Nursing Documentation-PMH Hx Cardiac Problems: Yes - "flipped heart" per patient Hx Gastrointestinal Problems: Yes - pancreatitis, gastritis, appendectomy Review of Systems Eye: Denies: eye pain, blurred vision ENT: Denies: ear pain, nose congestion, throat swelling Respiratory: Denies: cough, shortness of breath Cardiovascular: Denies: chest pain, palpitations Gastrointestinal: Reports: abdominal pain; Denies: diarrhea, nausea, vomiting Genitourinary: Reports: discharge, dysuria Musculoskeletal: Denies: back pain, joint pain Skin: Denies: rash Neurological: Denies: headache, numbness Endocrine: Denies: increased thirst, increased urine Hematologic/Lymphatic: Denies: easy bruising All Other Systems: negative except mentioned in HPI Physical Exam Vital Signs Date Time Temp Pulse Resp B/P (MAP) Pulse Ox O2 Delivery O2 Flow Rate FiO2 09/06/20 00:38 99.0 98 20 135/87 (103) 98 Room Air Vitals normal Sp02 EP Interpretation: reviewed, normal General Appearance: well appearing, no apparent distress, alert Head: normocephalic, atraumatic Eyes: bilateral eye PERRL, bilateral eye EOMI ENT: hearing grossly normal, normal pharynx Neck: full range of motion, supple, no meningismus Respiratory: chest non-tender, lungs clear, normal breath sounds Cardiovascular #1: regular rate, rhythm, no murmur Gastrointestinal: normal bowel sounds, non tender, no mass, no organomegaly, no bruit, non-distended Musculoskeletal: back normal, normal range of motion, gait/station normal Psychiatric: mood/affect normal Medical Decision Making Diagnostic Impression: Primary Impression: Urethritis Additional Impression: Abdominal pain Qualified Codes: R10.13 - Epigastric pain ER Course This patient presents with urethritis. Most likely chlamydia in nature. Rocephin and azithromycin given here. His epigastric pain is chronic in nature. No evidence of acute abdomen. Discharged home. Last Vital Signs Date Time Temp Pulse Resp B/P (MAP) Pulse Ox O2 Delivery O2 Flow Rate FiO2 09/06/20 00:38 99.0 98 20 135/87 (103) 98 Room Air Status: improved Disposition: HOME, SELF-CARE Condition: Stable Referrals: [facility],REFERR[facility] (PCP) Patient Instructions: Urethritis, Adult Additional Instructions: Have your partner treated also. Recommend outpatient testing for HIV, hepatitis, syphilis and other STDs. Follow-up with your doctor in 1 to 2 weeks. Return if symptoms worsen. Baldemar Butt MD Sep 06, 2020 00:51
[2020-09-06] MEDS ORDERED: Lidocaine 1% MPF 10mg/ml 5ml INJ ONE (01:00)
[2020-09-06] MEDS ORDERED: Azithromycin 250mg tab ORAL ONE (01:00)
[2020-09-06] MEDS ORDERED: cefTRIAXone 500mg Inj IM ONE (01:00)
[2020-09-06 01:20] VITALS: BP 135/87
== END 2020-09-06 01:20 | disposition home or self-care (01) ==
LOC: EMR 00:47
DX: N34.2 Other urethritis (principal); R10.13 Epigastric pain; F15.10 Other stimulant abuse, uncomplicated
CPT/HCPCS: 96372; J0696; Q0144; Z7502; 99283

== ENCOUNTER 2020-10-03 11:48 | Emergency (ER) | payer OTHER ==
[~2020-10-03] VITALS: Ht 167.6 cm; Wt 88.5 kg
[2020-10-03 12:15] VITALS: BP 137/89
[2020-10-03] MEDS ORDERED: Lidocaine 2% Visc 15ml soln ORAL ONE (12:15)
[2020-10-03] MEDS ORDERED: Mylanta II UD 30ml ORAL ONE (12:15)
--- NOTE | 2020-10-03 12:45 | Emergency Room Report ---
History of Present Illness General Chief Complaint: Abdominal Pain Source: Patient Present Illness HPI Patient presents emergency department today complaining of some abdominal discomfort associate dysuria urinary frequency and anxiety. Patient states the symptoms occurred a couple hours ago. He has a history of gastritis. Thinks that this might also be exacerbating his symptoms. Denies any penile discharge or testicular pain. States that his sexual activity was 5 days ago. He has a long distance stable relationship. States that he was sexually active 5 days ago. Has had a history of STDs in the past. He states that he was treated appropriately with oral antibiotics and a shot of antibiotics. No other complaints were noted. Symptoms noted to be moderate to severe. No other modifying factors. No other associated signs and symptoms. No other complaints were noted. Allergies: Coded Allergies: No Known Allergies (Unverified , 07/28/19) COVID-19 Screening Contact w/high risk pt: No Recent Travel to affected area: No Experienced COVID-19 symptoms?: No COVID-19 Testing performed DISPATCH SPECIALIST: No Patient History Past Medical History: none Past Surgical History: none Pertinent Family History: none Social History: Denies: smoking, alcohol use, drug use Reviewed Nursing Documentation: PMH: Agreed; PSxH: Agreed Nursing Documentation-PMH Hx Cardiac Problems: Yes - "flipped heart" per patient Hx Gastrointestinal Problems: Yes - pancreatitis, gastritis, appendectomy Review of Systems All Other Systems: negative except mentioned in HPI Physical Exam Vital Signs Date Time Temp Pulse Resp B/P (MAP) Pulse Ox O2 Delivery O2 Flow Rate FiO2 10/03/20 11:55 99.0 131 18 143/92 (109) 96 Room Air Sp02 EP Interpretation: reviewed, normal General Appearance: normal inspection, well appearing, no apparent distress, alert Head: atraumatic Eyes: bilateral eye normal inspection ENT: normal ENT inspection, hearing grossly normal, normal voice Neck: normal inspection, full range of motion, supple, no bony tend Respiratory: normal inspection, lungs clear, normal breath sounds, no respiratory distress, no retraction, no wheezing Cardiovascular #1: regular rate, rhythm, no edema Gastrointestinal: normal inspection, normal bowel sounds, non tender, soft, no guarding, no hernia Genitourinary: no CVA tenderness Musculoskeletal: normal inspection, back normal, normal range of motion Neurologic: alert, responsive, speech normal, normal inspection Psychiatric: normal inspection, judgement/insight normal, mood/affect normal Medical Decision Making Diagnostic Impression: Primary Impression: Abdominal pain Additional Impressions: Urethritis Mild dehydration Anxiety ER Course Patient presents to the emergency department today with multiple complaints. Patient complains anxiety dysuria abdominal discomfort. Differential diagnosis include pancreatitis cholecystitis gastritis anxiety urethritis dehydration just name a few. Given the severity of the patient's presentation I felt this is a highly complex patient. This patient required extensive workup. Patient's laboratory work-up was not impressive. Patient improved with fluids. Given presentation I was concerned about possible urethritis. As patient had positive leukocytes in the urine. And had history of recent sexual activity. Therefore we will start the patient on 1 dose of Rocephin prescription for doxycycline. Will give a dose of Flagyl here. Patient is advised to follow up with primary doctor in 2-3 days and return the emergency room for any worsening symptoms and as needed. Labs Test 10/03/20 12:15 White Blood Count 9.8 K/UL (4.8-10.8) Red Blood Count 5.78 M/UL (4.70-6.10) Hemoglobin 16.1 G/DL (14.2-18.0) Hematocrit 49.7 % (42.0-52.0) Mean Corpuscular Volume 86 FL (80-99) Mean Corpuscular Hemoglobin 27.9 PG (27.0-31.0) Mean Corpuscular Hemoglobin Concent 32.4 G/DL (32.0-36.0) Red Cell Distribution Width 13.0 % (11.6-14.8) Platelet Count 313 K/UL (150-450) Mean Platelet Volume 7.4 FL (6.5-10.1) Neutrophils (%) (Auto) 75.6 % (45.0-75.0) Lymphocytes (%) (Auto) 14.4 % (20.0-45.0) Monocytes (%) (Auto) 8.7 % (1.0-10.0) Eosinophils (%) (Auto) 0.5 % (0.0-3.0) Basophils (%) (Auto) 0.8 % (0.0-2.0) Urine Color Yellow Urine Appearance Slightly cloudy Urine pH 6 (4.5-8.0) Urine Specific [place] 1.025 (1.005-1.035) Urine Protein 2+ (NEGATIVE) Urine Glucose (UA) Negative (NEGATIVE) Urine Ketones 4+ (NEGATIVE) Urine Blood Negative (NEGATIVE) Urine Nitrite Negative (NEGATIVE) Urine Bilirubin 1+ (NEGATIVE) Urine Ictotest Positive (NEGATIVE) Urine Urobilinogen 4 MG/DL (0.0-1.0) Urine Leukocyte Esterase 1+ (NEGATIVE) Urine RBC 0 /HPF (0 - 0) Urine WBC 0-2 /HPF (0 - 0) Urine Squamous Epithelial Cells Occasional /LPF Urine Bacteria Occasional /HPF (NONE) Urine Mucus Many /LPF (NONE/OCC) Sodium Level 140 MMOL/L (136-145) Potassium Level 3.8 MMOL/L (3.5-5.1) Chloride Level 103 MMOL/L (98-107) Carbon Dioxide Level 25 MMOL/L (21-32) Anion Gap 12 mmol/L (5-15) Blood Urea Nitrogen 13 mg/dL (7-18) Creatinine 1.0 MG/DL (0.55-1.30) Estimat Glomerular Filtration Rate > 60 mL/min (>60) Glucose Level 107 MG/DL (74-106) Calcium Level 9.3 MG/DL (8.5-10.1) Total Bilirubin 1.0 MG/DL (0.2-1.0) Aspartate Amino Transf (AST/SGOT) 22 U/L (15-37) Alanine Aminotransferase (ALT/SGPT) 34 U/L (12-78) Alkaline Phosphatase 84 U/L (46-116) Total Protein 8.7 G/DL (6.4-8.2) Albumin 4.5 G/DL (3.4-5.0) Globulin 4.2 g/dL Albumin/Globulin Ratio 1.1 (1.0-2.7) Lipase 85 U/L (73-393) Rhythm Strip Diag. Results EP Interpretation: yes Rate: 102 Rhythm: NSR, no PVC's, no ectopy Last Vital Signs Date Time Temp Pulse Resp B/P (MAP) Pulse Ox O2 Delivery O2 Flow Rate FiO2 10/03/20 12:19 Room Air 10/03/20 12:15 99.2 125 15 137/89 98 Status: improved Disposition: HOME, SELF-CARE Condition: Stable Scripts Famotidine* (Pepcid 20mg tablet*) 20 Mg Tablet 20 MG ORAL TWICE A DAY for Gerd, #30 TAB 0 Refills Prov: Peter,Dominic MD 10/03/20 Omeprazole (OMEPRAZOLE) 40 Mg Capsule.dr 40 MG ORAL DAILY for Gerd for 30 Days, CAP Prov: Dominic Green MD 10/03/20 Doxycycline Hyclate (DOXYCYCLINE HYCLATE) 100 Mg Capsule 100 MG PO BID for 7 Days, CAP Prov: Dominic Green MD 10/03/20 Dominic Green MD Oct 03, 2020 12:45
[2020-10-03 12:48] LABS: APPEARANCE,URINE SLIGHTLY CLOUDY; BASOPHILS % (AUTO) 0.8 % (0.0-2.0); BILIRUBIN, URINE 1+ (NEGATIVE); EOSINOPHILS % (AUTO) 0.5 % (0.0-3.0); GLUCOSE, URINE (UA) NEGATIVE (NEGATIVE); HEMATOCRIT 49.7 % (42.0-52.0); HEMOGLOBIN 16.1 G/DL (14.2-18.0); KETONES,URINE 4+ (NEGATIVE); LEUKOCYTE ESTERASE ,URINE 1+ (NEGATIVE); LYMPHOCYTES % (AUTO) 14.4 % (20.0-45.0); MEAN CORPUSCULAR VOLUME 86 FL (80-99); MONOCYTES % (AUTO) 8.7 % (1.0-10.0); NEUTROPHILS % (AUTO) 75.6 % (45.0-75.0); NITRITE,URINE NEGATIVE (NEGATIVE); PH,URINE 6 (4.5-8.0); PLATELET COUNT 313 K/UL (150-450); PROTEIN,URINE 2+ (NEGATIVE); RED BLOOD COUNT 5.78 M/UL (4.70-6.10); UROBILINOGEN,URINE 4 MG/DL (0.0-1.0); WHITE BLOOD COUNT 9.8 K/UL (4.8-10.8)
[2020-10-03 12:49] LABS: COLOR,URINE YELLOW
[2020-10-03 12:55] LABS: ANION GAP 12 mmol/L (5-15); BLOOD UREA NITROGEN 13 mg/dL (7-18); CALCIUM 9.3 MG/DL (8.5-10.1); CARBON DIOXIDE 25 MMOL/L (21-32); CHLORIDE 103 MMOL/L (98-107); POTASSIUM 3.8 MMOL/L (3.5-5.1); SODIUM 140 MMOL/L (136-145)
[2020-10-03 12:57] LABS: ALANINE AMINOTRANSFERASE 34 U/L (12-78); ALBUMIN 4.5 G/DL (3.4-5.0); ALBUMIN/GLOBULIN RATIO 1.1 (1.0-2.7); ALKALINE PHOSPHATASE 84 U/L (46-116); ASPARTATE AMINO TRANSFERASE 22 U/L (15-37)
[2020-10-03] MEDS ORDERED: FAMOTIDINE20 MG ORAL (13:30)
[2020-10-03] MEDS ORDERED: DOXYCYCLINE HY100 M2 PO (13:30)
[2020-10-03] MEDS ORDERED: OMEPRAZOLE40 M1 ORAL (13:30)
[2020-10-03] MEDS ORDERED: metroNIDAZOLE 500mg tab ORAL ONE (13:30)
[2020-10-03] MEDS ORDERED: Lidocaine 1% MPF 10mg/ml 5ml INJ ONE (13:30)
== END 2020-10-03 15:00 | disposition home or self-care (01) ==
LOC: EMR 12:38
DX: N34.2 Other urethritis (principal); E86.0 Dehydration; F41.9 Anxiety disorder, unspecified; R10.9 Unspecified abdominal pain; Z90.89 Acquired absence of other organs
CPT/HCPCS: 36415; 80053; 81003; 83690; 85025; 87491; 87590; 96360; 96372; J0696; J7030; Z7502; 99284